=== PATIENT | male | born 1970 | race Caucasian/White ===

== ENCOUNTER 2018-10-22 23:21 | Inpatient (IN) | payer OTHER ==
[2018-10-22] MEDS ORDERED: LABETALOL 5 MG/ML VIAL MDV IVP STA (23:42)
[2018-10-23 00:03] LABS: Basophils # (A) 0.1 k/uL (0-0.2); Basophils % (A) 1 %; Eosinophils # (A) 0.2 k/uL (0-0.7); Eosinophils % (A) 2 %; HCT 53.9 % (39.0-53.0); HGB 17.4 gm/dL (13.0-17.5); Lymphocytes # (A) 1.4 k/uL (1.0-4.8); Lymphocytes % (A) 13 %; MCHC 32.2 g/dL (31.0-37.0); MCV 86.8 fL (80.0-100.0); Mean Platelet Volume 8.2; Monocytes # (A) 0.7 k/uL (0-1.0); Monocytes % (A) 7 %; Neutrophils # (A) 8.3 k/uL (1.3-7.7); Neutrophils % (A) 77 %; Platelet Count 272 k/uL (150-450); RBC 6.21 m/uL (4.30-5.90); RDW 15.6 % (11.5-15.5); WBC 10.9 k/uL (3.8-10.6)
[2018-10-23 00:09] LABS: INR 1.4 (<1.2); Prothrombin Time 12.9 sec (9.0-12.0)
[2018-10-23 00:12] LABS: Albumin 4.3 g/dL (3.5-5.0); Calcium 10.6 mg/dL (8.4-10.2); Potassium 5.1 mmol/L (3.5-5.1); Total Bilirubin 1.7 mg/dL (0.2-1.3); Total Protein 7.3 g/dL (6.3-8.2)
[2018-10-23] MEDS ORDERED: LORazepam 2 MG/ML INJ IV STA (00:24)
[2018-10-23 00:36] LABS: Creatine Kinase MB 4.3 ng/mL (0.0-2.4)
[2018-10-23 00:45] LABS: Troponin I 0.144 ng/mL (0.000-0.034)
--- NOTE | 2018-10-23 00:58 | XR ---
EXAMINATION TYPE: XR chest 2V DATE OF EXAM: 10/23/2018 COMPARISON: NONE HISTORY: Hypertension. Leg edema TECHNIQUE: Frontal and lateral views of the chest are obtained. FINDINGS: Heart is enlarged. There is right pleural effusion. There is no gross heart failure. There are no hilar masses. Mediastinum appears normal. There are chest leads. Bony thorax is intact. IMPRESSION: Cardiomegaly with right pleural effusion. There is no overt heart failure however.
[2018-10-23] MEDS ORDERED: NITROGLYCERIN OINT 1 INCH/GM PACKET TOPICAL STA (01:24)
[2018-10-23] MEDS ORDERED: FUROSEMIDE 10 MG/ML 4 ML VIAL IV STA (01:24)
--- NOTE | 2018-10-23 02:03 | CT ---
EXAMINATION TYPE: CT chest angio for PE DATE OF EXAM: 10/23/2018 COMPARISON: None HISTORY: chest pain and sob CT DLP: 676.5 mGycm Automated exposure control for dose reduction was used. CONTRAST: CT Chest for pulmonary embolism performed with with IV Contrast, patient injected with 80mL mL of Iso tammie 370. There are 3-D post processed images. FINDINGS: There is a moderate-sized right pleural effusion. There is some patchy atelectasis at the right lung base. Heart is top normal in size. There is no pericardial effusion. There is no evidence of a pulmon jayde mass. There are no hilar masses. There is no mediastinal adenopathy. There are a few superior med iastinal lymph nodes that measure less than 1 cm. There is normal contrast opacification of the pulmo nary arteries. I see no filling defects. There is no evidence of thoracic aortic aneurysm or dissecti on. The bony thorax appears intact. IMPRESSION: No evidence of pulmonary embolism. Right pleural effusion with right basilar pulmonary infiltrates and atelectasis.
--- NOTE | 2018-10-23 02:21 | ED ---
Abdominal Pain HPI - General Source: patient Mode of arrival: ambulatory Limitations: no limitations <Adelaide Juarez - Last Filed: 10/23/18 04:37> <Lelia Sesay - Last Filed: 10/25/18 05:44> - General Chief Complaint: Abdominal Pain Stated Complaint: High Blood pressure,Abd Swelling Time Seen by Provider: 10/22/18 23:40 - History of Present Illness Initial Comments: 48-year-old male patient presents to the emergency department today with complaints of abdominal and lower extremity swelling. Patient states for the last week he has had increased swelling to the lower legs and abdomen. Patient reports orthopnea and states he must sleep sitting up. States that symptoms started approximately 2 weeks ago after coming home from [place] on a plane. Patient states that he went to urgent care today was found to have elevated blood pressure so they sent him here for further evaluation. He denies any chest pain or shortness of breath at rest. Denies any abdominal pain or back pain. She denies any fevers or chills. States that as the swelling has been getting worse he has had increased difficulty ambulating. He denies any fever, chills, dizziness, or weakness. Patient denies any history of hypertension or other medical problems. Denies taking any medications for anything. Patient denies any recent rash, nausea, vomiting, diarrhea, constipation, numbness, tingling, hematuria, dysuria, urinary urgency, urinary frequency, headache, visual changes, or any other complaints. (Adelaide Juarez) - Related Data Home Medications Medication Instructions Recorded Confirmed No Known Home Medications 10/22/18 10/22/18 Allergies Allergy/AdvReac Type Severity Reaction Status Date / Time No Known Allergies Allergy Unverified 10/22/18 23:37 Review of Systems ROS Other: All systems not noted in ROS Statement are negative. <Adelaide Juarez - Last Filed: 10/23/18 04:37> ROS Other: All systems not noted in ROS Statement are negative. <Lelia Sesay - Last Filed: 10/25/18 05:44> ROS Statement: Those systems with pertinent positive or pertinent negative responses have been documented in the HPI. Past Medical History Past Medical History: No Reported History History of Any Multi-Drug Resistant Organisms: None Reported Past Surgical History: No Surgical Hx Reported Past Psychological History: No Psychological Hx Reported Smoking Status: Former smoker Past Alcohol Use History: None Reported Past Drug Use History: None Reported <AnnAdelaide Jasper - Last Filed: 10/23/18 04:37> General Exam Limitations: no limitations General appearance: alert, in no apparent distress, other (This is a well- developed, obese adult male patient in no acute distress. Vital signs upon presentation are temperature 98.2F, pulse 139, respirations 17, blood pressure 238/170, pulse ox 98% on room air.) Eye exam: Present: normal appearance, PERRL, EOMI. Absent: scleral icterus, conjunctival injection, periorbital swelling ENT exam: Present: normal exam, normal oropharynx, mucous membranes moist Respiratory exam: Present: normal lung sounds bilaterally. Absent: respiratory distress, wheezes, rales, rhonchi, stridor Cardiovascular Exam: Present: normal rhythm, tachycardia, normal heart sounds. Absent: systolic murmur, diastolic murmur, rubs, gallop, clicks GI/Abdominal exam: Present: soft, distended, normal bowel sounds. Absent: tenderness, guarding, rebound, rigid Extremities exam: Present: full ROM, normal capillary refill, other (Patient has nonpitting edema to the lower legs and feet. Skin is pink, warm, dry. Cap refills less than 3 seconds. Pedal pulses 2+ and equal bilaterally.). Absent: normal inspection, tenderness, pedal edema, joint swelling, calf tenderness Neurological exam: Present: alert, oriented X3, CN II-XII intact Psychiatric exam: Present: normal affect, normal mood Skin exam: Present: warm, dry, intact, normal color. Absent: rash <Adelaide Juarez M - Last Filed: 10/23/18 04:37> Vital Signs 10/22/18 10/22/18 10/22/18 23:24 23:36 23:40 Temperature 98.2 F Pulse Rate 139 H 140 H 140 H Respiratory 17 12 19 Rate Blood Pressure 238/170 230/183 O2 Sat by Pulse 98 97 100 Oximetry 10/22/18 10/23/18 10/23/18 23:50 00:00 00:10 Temperature Pulse Rate 140 H 140 H 138 H Respiratory 10 L 21 23 Rate Blood Pressure 230/183 230/183 213/166 O2 Sat by Pulse Oximetry 10/23/18 10/23/1818 00:20 00:30 00:40 Temperature Pulse Rate 135 H 135 H Respiratory 16 18 Rate Blood Pressure 213/166 213/166 191/157 O2 Sat by Pulse Oximetry 10/23/18 10/23/18 10/23/18 01:00 01:30 02:00 Temperature Pulse Rate 134 H 133 H Respiratory 19 16 Rate Blood Pressure 191/157 179/146 192/147 O2 Sat by Pulse 97 Oximetry 10/23/18 10/23/18 10/23/18 02:30 03:00 03:30 Temperature Pulse Rate 135 H 133 H 133 H Respiratory 18 9 L 18 Rate Blood Pressure 195/148 192/157 190/150 O2 Sat by Pulse 96 99 96 Oximetry 10/23/18 10/23/18 10/23/18 04:00 04:30 05:00 Temperature Pulse Rate 135 H 135 H 135 H Respiratory 20 16 17 Rate Blood Pressure 177/152 179/149 180/135 O2 Sat by Pulse 97 94 L 93 L Oximetry 10/23/18 10/23/18 10/23/18 06:30 07:00 07:30 Temperature 98.5 F Pulse Rate 98 118 H 107 H Respiratory 18 17 20 Rate Blood Pressure 172/114 157/112 140/118 O2 Sat by Pulse 95 96 96 Oximetry 10/23/18 10/23/18 10/23/18 09:11 10:35 11:30 Temperature 98.2 F Pulse Rate 137 H 131 H 121 H Respiratory 18 18 18 Rate Blood Pressure 173/138 179/138 190/157 O2 Sat by Pulse 100 98 98 Oximetry 10/23/18 13:29 Temperature Pulse Rate 133 H Respiratory 18 Rate Blood Pressure 185/139 O2 Sat by Pulse 96 Oximetry Medical Decision Making - Lab Data Result diagrams: 10/22/18 23:45 10/22/18 23:45 - EKG Data -: EKG Interpreted by Co - Radiology Data Radiology results: report reviewed, image reviewed <Adelaide Juarez - Last Filed: 10/23/18 04:37> - Lab Data Result diagrams: 10/24/18 06:54 10/24/18 18:31 <Lelia Sesay - Last Filed: 10/25/18 05:44> - Medical Decision Making 48-year-old male patient presents to the emergency department today for evaluation of increased abdominal swelling and lower extremity swelling. Physical examination did reveal nonpitting edema to the bilateral lower extremities. Lungs are clear to auscultation with good air movement. Upon arrival patient was quite hypertensive with blood pressure at 230/184. Labs reviewed and did reveal white blood cell count at 10.9, INR 1.4, BUN 26, glucose 161, troponin 0.144, BNP 3320, normal TSH. Negative drug screen. X- ray showed right-sided pleural effusion and cardiomegaly with no overt heart failure. CTA chest was obtained to rule out PE, there was no evidence of PE, but right sided moderate sized pleural effusion and some patchy atelectasis and infiltrates. EKG was obtained and did show sinus tachycardia from 130 to 140. Patient was given multiple doses of blood pressure medication including labetalol and Lopressor, blood pressure and heart rate remained elevated. Patient was given 40 mg Lasix IV and Nitropaste was applied. My attending Dr. Sesay did discuss the case with the vascular tech sewer contractor Dr. Morgan who recommends giving an additional dose of Lopressor and starting oral medication. Patient was started on anticoagulant therapy with heparin. Echocardiogram will be ordered for the morning. Patient will be admitted and monitored closely. (Adelaide Juarez) I personally saw and examined the patient. I reviewed and agree with the mid- level provider findings including all diagnostic interpretations and treatment plans as written unless otherwise stated. I was present for perea portions of any procedures performed. I did place the admission orders. (Lelia Sesay) - Lab Data Lab Results 10/22/18 10/22/18 10/22/18 Range/Units 23:45 23:45 23:45 WBC 10.9 H (3.8-10.6) k/uL RBC 6.21 H (4.30-5.90) m/uL Hgb 17.4 (13.0-17.5) gm/dL Hct 53.9 H (39.0-53.0) % MCV 86.8 (80.0-100.0) fL MCH 28.0 (25.0-35.0) pg MCHC 32.2 (31.0-37.0) g/dL RDW 15.6 H (11.5-15.5) % Plt Count 272 (150-450) k/uL Neutrophils % 77 % Lymphocytes % 13 % Monocytes % 7 % Eosinophils % 2 % Basophils % 1 % Neutrophils # 8.3 H (1.3-7.7) k/uL Lymphocytes # 1.4 (1.0-4.8) k/uL Monocytes # 0.7 (0-1.0) k/uL Eosinophils # 0.2 (0-0.7) k/uL Basophils # 0.1 (0-0.2) k/uL PT (9.0-12.0) sec INR (<1.2) APTT (22.0-30.0) sec Sodium 137 (137-145) mmol/L Potassium 5.1 (3.5-5.1) mmol/L Chloride 103 (98-107) mmol/L Carbon Dioxide 19 L (22-30) mmol/L Anion Gap 15 mmol/L BUN 26 H (9-20) mg/dL Creatinine 1.23 (0.66-1.25) mg/dL Est GFR (CKD-EPI)AfAm 80 (>60 ml/min/1.73 sqM) Est GFR (CKD-EPI)NonAf 69 (>60 ml/min/1.73 sqM) Glucose 161 H (74-99) mg/dL Calcium 10.6 H (8.4-10.2) mg/dL Magnesium 2.0 (1.6-2.3) mg/dL Total Bilirubin 1.7 H (0.2-1.3) mg/dL AST 42 (17-59) U/L ALT 61 (21-72) U/L Alkaline Phosphatase 141 H (38-126) U/L Total Creatine Kinase 77 (55-170) U/L CK-MB (CK-2) 4.3 H (0.0-2.4) ng/mL CK-MB (CK-2) Rel Index 5.6 Troponin I 0.144 H* (0.000-0.034) ng/mL NT-Pro-B Natriuret Pep pg/mL Total Protein 7.3 (6.3-8.2) g/dL Albumin 4.3 (3.5-5.0) g/dL Amylase 40 (30-110) U/L Lipase 165 (23-300) U/L TSH 3.310 (0.465-4.680) mIU/L 10/22/18 10/22/18 Range/Units 23:45 23:45 WBC (3.8-10.6) k/uL RBC (4.30-5.90) m/uL Hgb (13.0-17.5) gm/dL Hct (39.0-53.0) % MCV (80.0-100.0) fL MCH (25.0-35.0) pg MCHC (31.0-37.0) g/dL RDW (11.5-15.5) % Plt Count (150-450) k/uL Neutrophils % % Lymphocytes % % Monocytes % % Eosinophils % % Basophils % % Neutrophils # (1.3-7.7) k/uL Lymphocytes # (1.0-4.8) k/uL Monocytes # (0-1.0) k/uL Eosinophils # (0-0.7) k/uL Basophils # (0-0.2) k/uL PT 12.9 H (9.0-12.0) sec INR 1.4 H (<1.2) APTT 24.0 (22.0-30.0) sec Sodium (137-145) mmol/L Potassium (3.5-5.1) mmol/L Chloride (98-107) mmol/L Carbon Dioxide (22-30) mmol/L Anion Gap mmol/L BUN (9-20) mg/dL Creatinine (0.66-1.25) mg/dL Est GFR (CKD-EPI)AfAm (>60 ml/min/1.73 sqM) Est GFR (CKD-EPI)NonAf (>60 ml/min/1.73 sqM) Glucose (74-99) mg/dL Calcium (8.4-10.2) mg/dL Magnesium (1.6-2.3) mg/dL Total Bilirubin (0.2-1.3) mg/dL AST (17-59) U/L ALT (21-72) U/L Alkaline Phosphatase (38-126) U/L Total Creatine Kinase (55-170) U/L CK-MB (CK-2) (0.0-2.4) ng/mL CK-MB (CK-2) Rel Index Troponin I (0.000-0.034) ng/mL NT-Pro-B Natriuret Pep 3320 pg/mL Total Protein (6.3-8.2) g/dL Albumin (3.5-5.0) g/dL Amylase (30-110) U/L Lipase (23-300) U/L TSH (0.465-4.680) mIU/L - EKG Data EKG Comments: EKG obtained at 2346 shows sinus tachycardia with right axis deviation and incomplete right bundle branch block, ventricular rate 140, AR interval 126, QRS duration 100, QT 274, QTC 418. No evidence of ST elevation or depression. EKG #2 obtained at 0308 shows sinus tachycardia with a left posterior fascicular block, ventricular rate is 134, AR interval 112, QRS duration 106, QT 344, QTC 513. No evidence of ST elevation or depression. (Adelaide Juarez ) - Radiology Data Two-view x-ray of the chest is obtained. Heart is enlarged. There is right pleural effusion. There is no gross heart failure. There are no hilar masses. Mediastinum appears normal. There are chest leads. Bony thorax is intact. Impression by Dr. Srinivasan shows cardiomegaly with right pleural effusion. There is no overt heart failure however. CT chest angiography for PE was obtained. There is moderate right pleural effusion. Some patchy atelectasis at the right lung base. Heart is top normal in size. There is no pericardial effusion. There is no evidence of pulmonary mass. There are no hilar masses. There is no mediastinal adenopathy. There are few superior mediastinal lymph nodes that measure less than 1 cm. There is normal contrast opacification of the pulmonary arteries. I see no filling defects. There is no evidence of thoracic aortic aneurysm or dissection. The bony thorax appears intact. Impression by Dr. Srinivasan shows right pleural effusion with right basilar pulmonary infiltrates atelectasis. No evidence of pulmonary embolism. (Adelaide Juarez) Disposition Decision to Admit Reason: Admit from EC Decision Date: 10/23/18 Decision Time: 04:44 <Adeliade Juarez - Last Filed: 10/23/18 04:37> <Lelia Sesay - Last Filed: 10/25/18 05:44> Clinical Impression: Tachycardia, Pleural effusion on right, Congestive heart failure, Hypertensive emergency Disposition: ADMITTED IP TO THIS HOSP Condition: Serious
[2018-10-23] MEDS ORDERED: METOPROLOL TARTRATE 5 MG/5 ML VIAL IVP STA ×2 (02:34→04:34)
[2018-10-23] MEDS ORDERED: HEPARIN SODIUM,PORCINE 5,000 UNIT/ML 1 ML VIAL IV ONE (03:16)
[2018-10-23] MEDS ORDERED: HEPARIN SODIUM,PORCINE 5,000 UNIT/ML 1 ML VIAL IV PRN (03:16)
[2018-10-23] MEDS: HEPARIN SOD,PORK IN 0.45% NACL 25,000 UNIT in 0.45% NACL 1 500ML.BAG IV SCH ×2 (03:45→21:10)
[2018-10-23 04:00] LABS: Amphetamine Screen,Urine Not Detected (NotDetected); Barbiturate Screen,Urine Not Detected (NotDetected); Benzodiazepines Screen,Urine Not Detected (NotDetected); Cocaine Screen,Urine Not Detected (NotDetected); Methadone Screen, Urine Not Detected (NotDetected); Opiate Screen,Urine Not Detected (NotDetected); Oxycodone Screen, Urine Not Detected (NotDetected); Phencyclidine Screen,Urine Not Detected (NotDetected); Tricyclic Antidepressant,Urine Not Detected (NotDetected); Urn Cannabinoid Scrn Not Detected (NotDetected)
[2018-10-23] MEDS ORDERED: NALOXONE 0.4 MG/ML 1 ML VIAL IV PRN (04:07)
[2018-10-23] MEDS: SODIUM CHLORIDE 0.9% 1,000 ML IV SCH (05:35)
[2018-10-23] MEDS: METOPROLOL TARTRATE 25 MG TAB PO SCH ×2 (09:13→19:53)
[2018-10-23] MEDS: ASPIRIN 325 MG TAB PO SCH (09:13)
[2018-10-23] MEDS: FUROSEMIDE 10 MG/ML 4 ML VIAL IV SCH (09:15)
[2018-10-23] MEDS ORDERED: DEXTROSE 5% IN WATER 100 ML with AMIODARONE 150 MG IV ONE (11:24)
--- NOTE | 2018-10-23 11:33 | P.CRDCN ---
History of Present Illness Consult date: 10/23/18 Chief complaint: Increasing abdominal girth, shortness of breath History of present illness: This is a 48-year-old gentleman who has been experiencing increasing abdominal girth and distention and also some peripheral edema. He claims that all started about 2 weeks ago when he went to [place]. He was also having some palpitations. Denied any chest pain. He went to the walk-in clinic with several complaints. His blood pressure was found to be very high. Patient was referred to the emergency room. In the emergency room patient was found to have significant elevation of the blood pressure. He was treated with IV labetalol and also metoprolol. Cardiology consult is initiated. His monitor showed evidence of atrial fibrillation flutter with rapid ventricular response. His chest x-ray showed evidence of cardiomegaly and congestive heart failure. His proBNP is elevated. Clinically patient has JVD and probably ascites and peripheral edema. It appears that patient has evidence of systolic congestive heart failure which is acute. His EKG showed evidence of possible anteroseptal VA. Bedside echo Cardigan showed apical hypokinesia with severely impaired LV function with ejection fraction about 25-30%. It appears that most probably patient has ischemic cardiomyopathy, atrial fibrillation and CHF. I'm going to start him on IV amiodarone and continue with IV diuretics along with lisinopril and beta blockers. His potassium is on the high side. We'll may add Aldactone later on. Patient will require cardiac catheterization for definitive diagnosis Review of Systems As per the chart Past Medical History Past Medical History: No Reported History History of Any Multi-Drug Resistant Organisms: None Reported Past Surgical History: No Surgical Hx Reported Additional Past Anesthesia/Blood Transfusion Reaction / Comment(s): Pt has never had anesthesia/surgery Smoking Status: Former smoker - Past Family History Father Family Medical History: Coronary Artery Disease (CAD), Diabetes Mellitus Additional Family Medical History / Comment(s): Father has had MIs and his first Mi was at the age of 48yrs. Mother Family Medical History: Diabetes Mellitus Medications and Allergies Home Medications Medication Instructions Recorded Confirmed Type No Known Home Medications 10/22/18 10/22/18 History Allergies Allergy/AdvReac Type Severity Reaction Status Date / Time No Known Allergies Allergy Unverified 10/22/18 23:37 Physical Exam Vitals: Vital Signs Temp Pulse Resp BP Pulse Ox 10/23/18 10:35 131 H 18 179/138 98 10/23/18 09:11 137 H 18 173/138 100 10/23/18 07:30 98.5 F 107 H 20 140/118 96 10/23/18 07:00 118 H 17 157/112 96 10/23/18 06:30 98 18 172/114 95 10/23/18 05:00 135 H 17 180/135 93 L 10/23/18 04:30 135 H 16 179/149 94 L 10/23/18 04:00 135 H 20 177/152 97 10/23/18 03:30 133 H 18 190/150 96 10/23/18 03:00 133 H 9 L 192/157 99 10/23/18 02:30 135 H 18 195/148 96 10/23/18 02:00 133 H 16 192/147 97 10/23/18 01:30 179/146 10/23/18 01:00 134 H 19 191/157 10/23/18 00:40 135 H 18 191/157 10/23/18 00:30 135 H 16 213/166 10/23/18 00:20 213/166 10/23/18 00:10 138 H 23 213/166 10/23/18 00:00 140 H 21 230/183 10/22/18 23:50 140 H 10 L 230/183 10/22/18 23:40 140 H 19 230/183 100 10/22/18 23:36 140 H 12 97 10/22/18 23:24 98.2 F 139 H 17 238/170 98 Intake and Output 10/22/18 10/23/18 10/23/18 22:59 06:59 14:59 Output Total 650 500 Balance -650 -500 Output: Urine 650 500 Other: Weight 123.377 kg GENERAL EXAM: Patient is alert and oriented and doesn't appear to be in any acute distress HEENT: Normocephalic. Normal reaction of pupils, equal size, normal range of extraocular motion. No erythema or exudates in the throat. NECK: No masses, no nuchal rigidity. Increased JVD CHEST: No chest wall deformity. LUNGS: Diminished breath sounds at bases HEART: Irregular heart rhythm ABDOMEN: Distended, probable ascites. SKIN: No rashes CENTRAL NERVOUS SYSTEM: No focal deficits. EXTREMITIES: No cyanosis, clubbing or edema. Results 10/22/18 23:45 10/22/18 23:45 Cardiac Enzymes 10/22/18 10/22/18 10/23/18 Range/Units 23:45 23:45 06:44 AST 42 (17-59) U/L CK-MB (CK-2) 4.3 H (0.0-2.4) ng/mL Troponin I 0.144 H* 0.145 H* (0.000-0.034) ng/mL Coagulation 10/22/18 10/23/18 Range/Units 23:45 09:42 PT 12.9 H (9.0-12.0) sec APTT 24.0 30.8 H (22.0-30.0) sec CBC 10/22/18 Range/Units 23:45 WBC 10.9 H (3.8-10.6) k/uL RBC 6.21 H (4.30-5.90) m/uL Hgb 17.4 (13.0-17.5) gm/dL Hct 53.9 H (39.0-53.0) % Plt Count 272 (150-450) k/uL Comprehensive Metabolic Panel 10/22/18 Range/Units 23:45 Sodium 137 (137-145) mmol/L Potassium 5.1 (3.5-5.1) mmol/L Chloride 103 (98-107) mmol/L Carbon Dioxide 19 L (22-30) mmol/L BUN 26 H (9-20) mg/dL Creatinine 1.23 (0.66-1.25) mg/dL Glucose 161 H (74-99) mg/dL Calcium 10.6 H (8.4-10.2) mg/dL AST 42 (17-59) U/L ALT 61 (21-72) U/L Alkaline Phosphatase 141 H (38-126) U/L Total Protein 7.3 (6.3-8.2) g/dL Albumin 4.3 (3.5-5.0) g/dL Current Medications Generic Name Dose Route Start Last Admin Trade Name Freq PRN Reason Stop Dose Admin Aspirin 325 mg 10/23/18 09:00 10/23/18 09:13 Aspirin PO 325 mg DAILY HAIDER Administration Furosemide 40 mg 10/23/18 09:00 10/23/18 09:15 Lasix IV 40 mg DAILY HAIDER Administration Heparin Sodium (Porcine) 0 unit 10/23/18 03:16 Heparin IV PER PROTOCOL PRN Low PTT Protocol Heparin Sodium/Sodium Chloride 500 mls @ 20 mls/hr 10/23/18 03:30 10/23/18 03 :45 25,000 unit/ Sodium Chloride IV 8.1 units/hr .Q24H HAIDER 0.16 mls/hr Administration Protocol Sodium Chloride 1,000 mls @ 20 mls/hr 10/23/18 04:15 10/23/18 05:35 Saline 0.9% IV 20 mls/hr .Q24H HAIDER Administration Amiodarone HCl 150 mg/ 103 mls @ 618 mls/hr 10/23/18 11:24 Dextrose/Water IV 10/23/18 11:33 .Q10M ONE Amiodarone HCl 450 mg/ 250 mls @ 33.33 mls/hr 10/23/18 11:30 Dextrose/Water IV 10/24/18 11:24 .Q7H31M HAIDER Protocol 1 MG/MIN Lisinopril 10 mg 10/23/18 21:00 Zestril PO BID HAIDER Metoprolol Tartrate 25 mg 10/23/18 09:00 10/23/18 09:13 Lopressor PO 25 mg BID HAIDER Administration Naloxone HCl 0.2 mg 10/23/18 04:07 Narcan IV Q2M PRN Opioid Reversal Intake and Output 10/22/18 10/23/18 10/23/18 22:59 06:59 14:59 Output Total 650 500 Balance -650 -500 Output: Urine 650 500 Other: Weight 123.377 kg 10/22/18 23:45 10/22/18 23:45 EKG Interpretations (text) Atrial fibrillation/flutter with rapid ventricular response Assessment and Plan (1) Atrial flutter Current Visit: Yes Status: Acute Code(s): I48.92 - UNSPECIFIED ATRIAL FLUTTER SNOMED Code(s): 6128242 (2) Congestive heart failure Current Visit: Yes Status: Acute Code(s): I50.9 - HEART FAILURE, UNSPECIFIED SNOMED Code(s): 01232687 (3) Hypertensive emergency Current Visit: Yes Status: Acute Code(s): I16.1 - HYPERTENSIVE EMERGENCY SNOMED Code(s): 309225548859198 (4) Ischemic cardiomyopathy Current Visit: Yes Status: Acute Code(s): I25.5 - ISCHEMIC CARDIOMYOPATHY SNOMED Code(s): 023146155 Plan: Continue with IV diuretics with IV Lasix. Add Aldactone and potassium is corrected. Continue with IV amiodarone and anticoagulation. Continue with beta blockers. Further recommendation will depend upon clinical course. Patient will need cardiac catheterization for definitive diagnosis
[2018-10-23] MEDS: LISINOPRIL 10 MG TAB PO SCH ×2 (12:21→19:53)
--- NOTE | 2018-10-23 12:23 | ECHOF ---
Referral Reason:Cardiomegaly; CHF MEASUREMENTS -------- HEIGHT: 162.6 cm WEIGHT: 123.4 kg BP: 180/135 IVSd: 2.3 cm (0.6 - 1.1) LVIDd: 4.5 cm (3.9 - 5.3) LVPWd: 2.5 cm (0.6 - 1.1) IVSs: 2.3 cm LVIDs: 3.8 cm LVPWs: 2.3 cm LA Diam: 4.6 cm (2.7 - 3.8) LAESV Index (A-L): 41.29 ml/m Ao Diam: 3.3 cm (2.0 - 3.7) AV Cusp: 1.9 cm (1.5 - 2.6) LA Diam: 4.5 cm (2.7 - 3.8) MV EXCURSION: 18.351 mm (> 18.000) MV EF SLOPE: 195 mm/s (70 - 150) EPSS: 1.2 cm MV E Yuri: 1.12 m/s MV DecT: 157 ms MV A Yuri: 0.91 m/s MV E/A Ratio: 1.23 AV maxP.12 mmHg AV meanP.90 mmHg AR PHT: 284 ms RAP: 10.00 mmHg RVSP: 64.61 mmHg FINDINGS -------- Resting tachycardia (HR>100bpm). This was a technically good study. The left ventricular size is normal. There is severe concentric left ventricular hypertrophy. The re is severe global hypokinesis of LV . Overall left ventricular systolic function is severely impa ired with, an EF between 20 - 25 %. The right ventricle is normal in size. LA is severely dilated >40 ml/m2 The right atrial size is normal. There is moderate aortic valve sclerosis. There is mild aortic regurgitation. Peak/mean gradient across the Aortic Valve is 4.12mmHg / 2.90mmHg. AOV is possible Bicuspid. Mild mitral annular calcification present. Mild mitral regurgitation is present. Mild tricuspid regurgitation present. There is moderate pulmonary hypertension. The right ventric ular systolic pressure, as measured by Doppler, is 64.61mmHg. Trace/mild (physiologic) pulmonic regurgitation. The aortic root size is normal. There is a small, generalized pericardial effusion present. CONCLUSIONS -------- 1. Resting tachycardia (HR>100bpm). 2. This was a technically good study. 3. There is severe concentric left ventricular hypertrophy. 4. There is severe global hypokinesis of LV . 5. Overall left ventricular systolic function is severely impaired with, an EF between 20 - 25 %. 6. The right ventricle is normal in size. 7. LA is severely dilated >40 ml/m2 8. The right atrial size is normal. 9. There is moderate aortic valve sclerosis. 10. There is mild aortic regurgitation. 11. Peak/mean gradient across the Aortic Valve is 4.12mmHg / 2.90mmHg. 12. AOV is possible Bicuspid. 13. Mild mitral annular calcification present. 14. Mild mitral regurgitation is present. 15. Mild tricuspid regurgitation present. 16. There is moderate pulmonary hypertension. 17. Trace/mild (physiologic) pulmonic regurgitation. 18. The aortic root size is normal. 19. There is a small, generalized pericardial effusion present. LACTATION NURSE: Julia Godinez RDCS
[2018-10-23] MEDS: AMIODARONE 450 MG in DEXTROSE 5% IN WATER 250 ML IV SCH ×4 (12:35→19:53)
--- NOTE | 2018-10-23 13:55 | P.HPIM ---
History of Present Illness This is a pleasant 48 years old male with no significant past medical history who presents because of increase abdominal and leg swelling. He states he was in [place] for a few days on the last 2 days he noticed that his abdominal girth was getting bigger, which continued after he came to [place]. In the last 3 days he was noted to have progressive bilateral leg swelling. However he denies chest pain. He denies dyspnea. And he denies abdominal pain he says that the abdominal swelling causing him more pressure like feeling. No nausea vomiting and no change in urine or bowel habits. On admission he has mild leukocytosis. However his creatinine was 1.2. And he has positive troponin at 0.14 and 0.14. Patient has been evaluated by precision lens centerer and edger. Echo came back showing ejection fraction 20-25% and there is severe global hypokinesia with severe concentric left ventricular hypertrophy. Also patient has CT PA in the emergency room which was negative for PE On presentation also has high blood pressures and heart rate, EKG was showing atrial fibrillation. Patient was started on amiodarone drip for A. fib with RVR. Review of Systems CONSTITUTIONAL: No fever, no malaise, no fatigue. HEENT: No recent visual problems or hearing problems. Denied any sore throat. CARDIOVASCULAR: No orthopnea, PND, no palpitations, no syncope. PULMONARY: No shortness of breath, no cough, no hemoptysis. GASTROINTESTINAL: No diarrhea, no nausea, no vomiting, no abdominal pain. Normoactive bowel sounds. NEUROLOGICAL: No headaches, no weakness, no numbness. HEMATOLOGICAL: Denies any bleeding or petechiae. GENITOURINARY: Denies any burning micturition, frequency, or urgency. MUSCULOSKELETAL/RHEUMATOLOGICAL: Denies any joint pain, swelling, or any muscle pain. ENDOCRINE: Denies any polyuria or polydipsia. Past Medical History Past Medical History: No Reported History History of Any Multi-Drug Resistant Organisms: None Reported Past Surgical History: No Surgical Hx Reported Additional Past Anesthesia/Blood Transfusion Reaction / Comment(s): Pt has never had anesthesia/surgery Smoking Status: Former smoker - Past Family History Father Family Medical History: Coronary Artery Disease (CAD), Diabetes Mellitus Additional Family Medical History / Comment(s): Father has had MIs and his first Mi was at the age of 48yrs. Mother Family Medical History: Diabetes Mellitus Medications and Allergies Home Medications Medication Instructions Recorded Confirmed Type No Known Home Medications 10/22/18 10/22/18 History Allergies Allergy/AdvReac Type Severity Reaction Status Date / Time No Known Allergies Allergy Unverified 10/22/18 23:37 Physical Exam Vitals: Vital Signs Temp Pulse Resp BP Pulse Ox 10/23/18 13:29 133 H 18 185/139 96 10/23/18 11:30 98.2 F 121 H 18 190/157 98 10/23/18 10:35 131 H 18 179/138 98 10/23/18 09:11 137 H 18 173/138 100 10/23/18 07:30 98.5 F 107 H 20 140/118 96 10/23/18 07:00 118 H 17 157/112 96 10/23/18 06:30 98 18 172/114 95 10/23/18 05:00 135 H 17 180/135 93 L 10/23/18 04:30 135 H 16 179/149 94 L 10/23/18 04:00 135 H 20 177/152 97 10/23/18 03:30 133 H 18 190/150 96 10/23/18 03:00 133 H 9 L 192/157 99 10/23/18 02:30 135 H 18 195/148 96 10/23/18 02:00 133 H 16 192/147 97 10/23/18 01:30 179/146 10/23/18 01:00 134 H 19 191/157 10/23/18 00:40 135 H 18 191/157 10/23/18 00:30 135 H 16 213/166 10/23/18 00:20 213/166 10/23/18 00:10 138 H 23 213/166 10/23/18 00:00 140 H 21 230/183 10/22/18 23:50 140 H 10 L 230/183 10/22/18 23:40 140 H 19 230/183 100 10/22/18 23:36 140 H 12 97 10/22/18 23:24 98.2 F 139 H 17 238/170 98 Intake and Output 10/22/18 10/23/18 10/23/18 22:59 06:59 14:59 Intake Total 1.36 Output Total 650 500 Balance -650 -498.64 Intake: Intake, IV Titration 1.36 Amount Heparin Sod,Pork in 0.45% 1.36 NaCl 25,000 unit In 0.45 % NaCl 1 500ml.bag @ 20 mls/hr IV .Q24H [facility] Rx#: [id number] Output: Urine 650 500 Other: Weight 123.377 kg GENERAL: The patient is alert and oriented x3, not in any acute distress. Well developed, well nourished. HEENT: Pupils are round and equally reacting to light. EOMI. No scleral icterus. No conjunctival pallor. Normocephalic, atraumatic. No pharyngeal erythema. No thyromegaly. CARDIOVASCULAR: S1 and S2 present. No murmurs, rubs, or gallops. PULMONARY: Chest is clear to auscultation, no wheezing or crackles. ABDOMEN: Soft, nontender, nondistended, normoactive bowel sounds. No palpable organomegaly. MUSCULOSKELETAL: No joint swelling or deformity. EXTREMITIES: No cyanosis, clubbing, or pedal edema. NEUROLOGICAL: Gross neurological examination did not reveal any focal deficits. SKIN: No rashes. Results CBC & Chem 7: 10/22/18 23:45 10/22/18 23:45 Labs: Abnormal Lab Results - Last 24 Hours (Table) 10/22/18 10/22/18 10/22/18 Range/Units 23:45 23:45 23:45 WBC 10.9 H (3.8-10.6) k/uL RBC 6.21 H (4.30-5.90) m/uL Hct 53.9 H (39.0-53.0) % RDW 15.6 H (11.5-15.5) % Neutrophils # 8.3 H (1.3-7.7) k/uL PT (9.0-12.0) sec INR (<1.2) APTT (22.0-30.0) sec Carbon Dioxide 19 L (22-30) mmol/L BUN 26 H (9-20) mg/dL Glucose 161 H (74-99) mg/dL Calcium 10.6 H (8.4-10.2) mg/dL Total Bilirubin 1.7 H (0.2-1.3) mg/dL Alkaline Phosphatase 141 H (38-126) U/L CK-MB (CK-2) 4.3 H (0.0-2.4) ng/mL Troponin I 0.144 H* (0.000-0.034) ng/mL 10/22/18 10/23/18 10/23/18 Range/Units 23:45 06:44 09:42 WBC (3.8-10.6) k/uL RBC (4.30-5.90) m/uL Hct (39.0-53.0) % RDW (11.5-15.5) % Neutrophils # (1.3-7.7) k/uL PT 12.9 H (9.0-12.0) sec INR 1.4 H (<1.2) APTT 30.8 H (22.0-30.0) sec Carbon Dioxide (22-30) mmol/L BUN (9-20) mg/dL Glucose (74-99) mg/dL Calcium (8.4-10.2) mg/dL Total Bilirubin (0.2-1.3) mg/dL Alkaline Phosphatase (38-126) U/L CK-MB (CK-2) (0.0-2.4) ng/mL Troponin I 0.145 H* (0.000-0.034) ng/mL Thrombosis Risk Factor Assmnt - Choose All That Apply Any of the Below Risk Factors Present?: Yes Each Factor Represents 1 point: Age 41-60 years, Obesity (BMI >25), Swollen legs (current) Other Risk Factors: No Other congenital or acquired thrombophilia - If yes, enter type in comment: No Thrombosis Risk Factor Assessment Total Risk Factor Score: 3 Thrombosis Risk Factor Assessment Level: Moderate Risk Assessment and Plan Assessment: Acute systolic CHF Ischemic cardiomyopathy Acute coronary syndrome, non-STEMI Atrial fibrillation's with RVR, started on amiodarone drip. Plan: This is a pleasant 48 this male who presents because of excessive leg swelling mostly due to acute systolic heart regular. Some ischemic elements. Cardiology consultation is appreciated. Labs and medication were reviewed.. Continue same treatment. Continue with symptomatic treatment. Resume home medication. Monitor lytes and vitals. DVT and GI prophylaxis. Further recommendations of the clinical course of the patient DVT prophylaxis: Subcutaneous heparin GI Prophylaxis: Pepcid PT/OT: Pending Prognosis is guarded
[2018-10-23] MEDS: HYDROCHLOROTHIAZIDE 25 MG TAB PO SCH (19:54)
[2018-10-23] MEDS ORDERED: LABETALOL 5 MG/ML VIAL MDV IVP STA (23:00)
[2018-10-24] MEDS: hydrALAZINE HCL 25 MG TAB PO PRN ×2 (04:16→19:08)
[2018-10-24] MEDS: SODIUM CHLORIDE 0.9% 1,000 ML IV SCH (04:23)
[2018-10-24] MEDS ORDERED: cloNIDine HCL 0.1 MG TAB PO STA (05:54)
[2018-10-24 07:37] LABS: Albumin 3.2 g/dL (3.5-5.0); Bilirubin, Delta 0.5 mg/dL (0.0-0.2); Bilirubin,Unconjugated 0.2 mg/dL (0.0-1.1); Calcium 9.3 mg/dL (8.4-10.2); Potassium 3.6 mmol/L (3.5-5.1); Total Bilirubin 0.7 mg/dL (0.2-1.3); Total Protein 5.7 g/dL (6.3-8.2)
[2018-10-24 07:51] LABS: Basophils # (A) 0.1 k/uL (0-0.2); Basophils % (A) 1 %; Eosinophils # (A) 0.3 k/uL (0-0.7); Eosinophils % (A) 4 %; HGB 14.5 gm/dL (13.0-17.5); Lymphocytes # (A) 1.2 k/uL (1.0-4.8); Lymphocytes % (A) 16 %; MCH 27.4 pg (25.0-35.0); MCHC 30.9 g/dL (31.0-37.0); MCV 88.5 fL (80.0-100.0); Mean Platelet Volume 7.8; Monocytes # (A) 0.6 k/uL (0-1.0); Monocytes % (A) 9 %; Neutrophils # (A) 4.8 k/uL (1.3-7.7); Neutrophils % (A) 69 %; Platelet Count 222 k/uL (150-450); RBC 5.31 m/uL (4.30-5.90)
[2018-10-24] MEDS: HYDROCHLOROTHIAZIDE 25 MG TAB PO SCH (09:42)
[2018-10-24] MEDS: FUROSEMIDE 10 MG/ML 4 ML VIAL IV SCH ×3 (09:42→22:53)
[2018-10-24] MEDS: METOPROLOL TARTRATE 25 MG TAB PO SCH (09:42)
[2018-10-24] MEDS: ASPIRIN 325 MG TAB PO SCH (09:42)
[2018-10-24] MEDS: LISINOPRIL 10 MG TAB PO SCH (09:42)
[2018-10-24] MEDS: CARVEDILOL 6.25 MG TAB PO SCH ×2 (11:37→17:35)
[2018-10-24] MEDS: SPIRONOLACTONE 25 MG TAB PO SCH (11:39)
[2018-10-24] MEDS: AMIODARONE 450 MG in DEXTROSE 5% IN WATER 250 ML IV SCH ×4 (11:48→12:03)
--- NOTE | 2018-10-24 12:46 | P.PN ---
Subjective Progress Note Date: 10/24/18 This is a 48-year-old gentleman who has been experiencing increasing abdominal girth and distention and also some peripheral edema. He claims that all started about 2 weeks ago when he went to [place]. He was also having some palpitations. Denied any chest pain. He went to the walk-in clinic with several complaints. His blood pressure was found to be very high. Patient was referred to the emergency room. In the emergency room patient was found to have significant elevation of the blood pressure. He was treated with IV labetalol and also metoprolol. Cardiology consult is initiated. His monitor showed evidence of atrial fibrillation flutter with rapid ventricular response. His chest x-ray showed evidence of cardiomegaly and congestive heart failure. His proBNP is elevated. Clinically patient has JVD and probably ascites and peripheral edema. It appears that patient has evidence of systolic congestive heart failure which is acute. His EKG showed evidence of possible anteroseptal CO. Bedside echo [place] showed apical hypokinesia with severely impaired LV function with ejection fraction about 25-30%. It appears that most probably patient has ischemic cardiomyopathy, atrial fibrillation and CHF. Patient was initiated on IV amiodarone, and continued on IV diuretics. His blood pressure this morning 166/118 with a heart rate in the 70s, 99% on room air. White blood cell count 7, hemoglobin 14.5, platelet count 222. Sodium 138, potassium 3.6, BUN 35, creatinine 1.5. Patient has been diuresing, weight is essentially unchanged from yesterday. We will increase his dose of IV Lasix. We will also discontinue the SHAE inhibitor and start the patient on Entresto from Sunday. Objective - Vital Signs Vital signs: Vital Signs Temp 97.5 F L 10/24/18 11:45 Pulse 73 10/24/18 11:45 Resp 16 10/24/18 11:45 BP 166/118 10/24/18 11:45 Pulse Ox 99 10/24/18 11:45 Intake & Output 10/23/18 10/24/18 10/24/18 18:59 06:59 18:59 Intake Total 438.819 25.331 Output Total 091 354 2580 Balance -61.181 -524.669 -2300 Weight 124 kg Intake: Intake, IV Titration 198.819 25.331 Amount Amiodarone 450 mg In 196.091 23.602 Dextrose 5% in Water 250 ml @ 1 MG/MIN 33.33 mls/ hr IV .Q7H31M [facility] Rx#: [id number] Heparin Sod,Pork in 0.45% 2.728 1.729 NaCl 25,000 unit In 0.45 % NaCl 1 500ml.bag @ 20 mls/hr IV .Q24H [facility] Rx#: [id number] Oral 240 Output: Urine 797 295 4233 Other: Voiding Method Urinal # Voids 1 2 - Exam PHYSICAL EXAMINATION: GENERAL: 48-year-old gentleman in no acute distress at the time of my examination HEENT: Head is atraumatic, normocephalic. Pupils equal, round. Sclera anicteric. Conjunctiva are clear. Mucous membranes of the mouth are moist. Neck is supple. There is no elevated jugular venous pressure. No carotid bruit is heard. HEART EXAMINATION: Heart S1, S2 irregularly irregular . No murmur or gallop heard. CHEST EXAMINATION: Lungs reveal diminished air entry to bilateral bases. ABDOMEN: Soft, obese, distended, Bowel sounds are heard. No organomegaly noted. EXTREMITIES: 2+ peripheral pulses with evidence of peripheral edema and no calf tenderness noted. NEUROLOGIC patient is awake, alert and oriented X 3 . - Labs CBC & Chem 7: 10/24/18 06:54 10/24/18 06:54 Labs: Abnormal Lab Results - Last 24 Hours (Table) 10/23/18 10/23/18 10/24/18 Range/Units 13:18 17:35 00:37 MCHC (31.0-37.0) g/dL RDW (11.5-15.5) % APTT 45.1 H 42.1 H (22.0-30.0) sec BUN (9-20) mg/dL Creatinine (0.66-1.25) mg/dL Glucose (74-99) mg/dL Delta Bilirubin (0.0-0.2) mg/dL Troponin I 0.145 H* (0.000-0.034) ng/mL Total Protein (6.3-8.2) g/dL Albumin (3.5-5.0) g/dL 10/24/18 10/24/18 10/24/18 Range/Units 06:54 06:54 06:54 MCHC 30.9 L (31.0-37.0) g/dL RDW 16.0 H (11.5-15.5) % APTT 62.8 H (22.0-30.0) sec BUN 35 H (9-20) mg/dL Creatinine 1.51 H (0.66-1.25) mg/dL Glucose 161 H (74-99) mg/dL Delta Bilirubin 0.5 H (0.0-0.2) mg/dL Troponin I (0.000-0.034) ng/mL Total Protein 5.7 L (6.3-8.2) g/dL Albumin 3.2 L (3.5-5.0) g/dL Assessment and Plan Plan: Assessment and plan #1 systolic congestive heart failure acute on chronic #2 ischemic cardiomyopathy #3 ACS #4 persistent atrial fibrillation #5 accelerated hypertension Plan We will increase the dose of IV Lasix to a 3 times a day dose today. We will also discontinue the lisinopril and from Sunday start Entresto, discontinue metoprolol and start the patient on Coreg continue to monitor intake and output along with daily weights and daily lytes BUN and creatinine. Once the patient is stable from a heart failure perspective patient will require cardiac catheterization. DNP note has been reviewed, I agree with a documented findings and plan of care. Patient was seen and examined.
[2018-10-24 19:15] LABS: Magnesium 1.8 mg/dL (1.6-2.3)
[2018-10-24] MEDS: AMIODARONE 200 MG TAB PO SCH (20:46)
--- NOTE | 2018-10-24 22:57 | P.PN ---
Subjective This is a pleasant 48 years old male with no significant past medical history who presents because of increase abdominal and leg swelling. He states he was in [place] for a few days on the last 2 days he noticed that his abdominal girth was getting bigger, which continued after he came to [place]. In the last 3 days he was noted to have progressive bilateral leg swelling. However he denies chest pain. He denies dyspnea. And he denies abdominal pain he says that the abdominal swelling causing him more pressure like feeling. No nausea vomiting and no change in urine or bowel habits. On admission he has mild leukocytosis. However his creatinine was 1.2. And he has positive troponin at 0.14 and 0.14. Patient has been evaluated by taxation economist. Echo came back showing ejection fraction 20-25% and there is severe global hypokinesia with severe concentric left ventricular hypertrophy. Also patient has CT PA in the emergency room which was negative for PE On presentation also has high blood pressures and heart rate, EKG was showing atrial fibrillation. Patient was started on amiodarone drip for A. fib with RVR. 10/24/18 pt today feels better, he could sleep, with paroxysmal nocturnal dyspena, he feels his swelling is coming down in his belly and legs. pt has hypertensive emergency on admission , his BP is still not well controlled , taxation economist adjusted his antihypertensive medication . pt remains on heparin drip. the plan is for cardiac cath once his heart failure is controlled. pt denies dyspena and no chest pain . his legs are still significantly swollen. lasix has been increased from daily to three times daily. his creatinine went up from 1.2 to 1.5 mostly due to diuretic effect. we will keep monitoring . amiodarone orally is started by cardiology team as well. CONSTITUTIONAL: No fever, no malaise, no fatigue. HEENT: No recent visual problems or hearing problems. Denied any sore throat. CARDIOVASCULAR: No orthopnea, PND, no palpitations, no syncope. PULMONARY: no hemoptysis. GASTROINTESTINAL: No diarrhea, no nausea, no vomiting, no abdominal pain. Normoactive bowel sounds. NEUROLOGICAL: No headaches, no weakness, no numbness. HEMATOLOGICAL: Denies any bleeding or petechiae. GENITOURINARY: Denies any burning micturition, frequency, or urgency. MUSCULOSKELETAL/RHEUMATOLOGICAL: Denies any joint pain, swelling, or any muscle pain. ENDOCRINE: Denies any polyuria or polydipsia. Objective - Vital Signs Vital signs: Vital Signs Temp 97.4 F L 10/24/18 19:47 Pulse 86 10/24/18 19:47 Resp 16 10/24/18 19:47 BP 198/124 10/24/18 19:47 Pulse Ox 97 10/24/18 19:47 Intake & Output 10/24/18 10/24/18 10/25/18 06:59 18:59 06:59 Intake Total 25.331 880 Output Total 550 4550 Balance -524.995 -8520 Weight 124 kg Intake: Intake, IV Titration 25.331 Amount Amiodarone 450 mg In 23.602 Dextrose 5% in Water 250 ml @ 1 MG/MIN 33.33 mls/ hr IV .Q7H31M [facility] Rx#: [id number] Heparin Sod,Pork in 0.45% 1.729 NaCl 25,000 unit In 0.45 % NaCl 1 500ml.bag @ 20 mls/hr IV .Q24H [facility] Rx#: [id number] Oral 880 Output: Urine 550 4550 Other: Voiding Method Urinal Urinal # Voids 1 1 - Exam GENERAL: The patient is alert and oriented x3, not in any acute distress. Well developed, well nourished. HEENT: Pupils are round and equally reacting to light. EOMI. No scleral icterus. No conjunctival pallor. Normocephalic, atraumatic. No pharyngeal erythema. No thyromegaly. CARDIOVASCULAR: S1 and S2 present. No murmurs, rubs, or gallops. PULMONARY: Chest is clear to auscultation, no wheezing or crackles. ABDOMEN: Soft, nontender, nondistended, normoactive bowel sounds. No palpable organomegaly. MUSCULOSKELETAL: No joint swelling or deformity. -EXTREMITIES: No cyanosis, clubbing. bilateral leg edema NEUROLOGICAL: Gross neurological examination did not reveal any focal deficits. SKIN: No rashes. - Labs CBC & Chem 7: 10/24/18 06:54 10/24/18 18:31 Labs: Abnormal Lab Results - Last 24 Hours (Table) 10/24/18 10/24/18 10/24/18 Range/Units 00:37 06:54 06:54 MCHC 30.9 L (31.0-37.0) g/dL RDW 16.0 H (11.5-15.5) % APTT 42.1 H (22.0-30.0) sec BUN 35 H (9-20) mg/dL Creatinine 1.51 H (0.66-1.25) mg/dL Glucose 161 H (74-99) mg/dL Delta Bilirubin 0.5 H (0.0-0.2) mg/dL Total Protein 5.7 L (6.3-8.2) g/dL Albumin 3.2 L (3.5-5.0) g/dL 10/24/18 Range/Units 06:54 MCHC (31.0-37.0) g/dL RDW (11.5-15.5) % APTT 62.8 H (22.0-30.0) sec BUN (9-20) mg/dL Creatinine (0.66-1.25) mg/dL Glucose (74-99) mg/dL Delta Bilirubin (0.0-0.2) mg/dL Total Protein (6.3-8.2) g/dL Albumin (3.5-5.0) g/dL Assessment and Plan Assessment: Acute systolic CHF possible Ischemic cardiomyopathy Acute coronary syndrome, non-STEMI Atrial fibrillation's with RVR, started on amiodarone drip. accelerated hypertension Plan: This is a pleasant 48 this male who presents because of excessive leg swelling mostly due to acute systolic heart regular. Some ischemic elements. Cardiology consultation is appreciated. Labs and medication were reviewed.. Continue same treatment. Continue with symptomatic treatment. Resume home medication. Monitor lytes and vitals. DVT and GI prophylaxis. Further recommendations of the clinical course of the patient DVT prophylaxis: Subcutaneous heparin GI Prophylaxis: Pepcid PT/OT: Pending Prognosis is guarded
[2018-10-25] MEDS: HEPARIN SOD,PORK IN 0.45% NACL 25,000 UNIT in 0.45% NACL 1 500ML.BAG IV SCH (01:32)
[2018-10-25] MEDS: SODIUM CHLORIDE 0.9% 1,000 ML IV SCH (05:23)
[2018-10-25] MEDS: CARVEDILOL 6.25 MG TAB PO SCH (06:41)
[2018-10-25 07:15] LABS: Albumin 3.3 g/dL (3.5-5.0); Bilirubin, Delta 0.5 mg/dL (0.0-0.2); Bilirubin,Unconjugated 0.2 mg/dL (0.0-1.1); Calcium 9.5 mg/dL (8.4-10.2); Potassium 3.7 mmol/L (3.5-5.1); Total Bilirubin 0.7 mg/dL (0.2-1.3); Total Protein 5.9 g/dL (6.3-8.2)
[2018-10-25 07:42] LABS: Basophils # (A) 0.1 k/uL (0-0.2); Basophils % (A) 1 %; Eosinophils # (A) 0.3 k/uL (0-0.7); Eosinophils % (A) 4 %; HCT 47.2 % (39.0-53.0); HGB 14.8 gm/dL (13.0-17.5); Lymphocytes % (A) 12 %; MCH 27.8 pg (25.0-35.0); MCHC 31.4 g/dL (31.0-37.0); MCV 88.6 fL (80.0-100.0); Monocytes # (A) 0.8 k/uL (0-1.0); Monocytes % (A) 10 %; Neutrophils # (A) 5.6 k/uL (1.3-7.7); Neutrophils % (A) 72 %; Platelet Count 215 k/uL (150-450); RBC 5.33 m/uL (4.30-5.90); WBC 7.8 k/uL (3.8-10.6)
[2018-10-25] MEDS: SPIRONOLACTONE 25 MG TAB PO SCH (09:20)
[2018-10-25] MEDS: ASPIRIN 81 MG PO SCH (09:20)
[2018-10-25] MEDS: AMIODARONE 200 MG TAB PO SCH ×2 (09:20→20:54)
[2018-10-25] MEDS: HYDROCHLOROTHIAZIDE 25 MG TAB PO SCH (09:20)
[2018-10-25] MEDS: FUROSEMIDE 10 MG/ML 4 ML VIAL IV SCH ×3 (09:21→23:07)
[2018-10-25 11:19] VITALS: BMI 35.9
[2018-10-25] MEDS ORDERED: POTASSIUM CHLORIDE ER 20 MEQ TAB.ER PO STA (16:14)
--- NOTE | 2018-10-25 16:18 | P.PN ---
Subjective Progress Note Date: 10/25/18 This is a 48-year-old gentleman who was admitted with evidence of severe congestive heart failure and cardiomyopathy. Echocardiogram is consistent with hypertrophic cardiomyopathy with hypokinesis of the apical segment. The possibility of underlying ischemic heart disease cannot be excluded. Patient has been responding well. Patient is diuresing well and lost several pounds. The edema and ascites have come down. His blood pressure is still running high. I'll increase the dose of the Coreg and also add amlodipine and potassium supplement. His creatinine is improving. He will get Entresto from tomorrow. If blood pressure seemed to be resistant, we may do studies to rule out pheochromocytoma. Rest of the medication be continued. Electoral lites been followed closely. His potassium today is about 3.7 Objective - Vital Signs Vital signs: Vital Signs Temp 97.6 F 10/25/18 15:31 Pulse 124 H 10/25/18 15:32 Resp 16 10/25/18 15:31 BP 168/116 10/25/18 15:31 Pulse Ox 96 10/25/18 15:31 Intake & Output 10/24/18 10/25/18 10/25/18 18:59 06:59 18:59 Intake Total 880 7.325 960 Output Total 4550 4200 Balance -3670 -4192.675 960 Weight 116.8 kg 116.8 kg Intake: Intake, IV Titration 7.325 Amount Heparin Sod,Pork in 0.45% 7.325 NaCl 25,000 unit In 0.45 % NaCl 1 500ml.bag @ 20 mls/hr IV .Q24H [facility] Rx#: [id number] Oral 880 960 Output: Urine 4550 4200 Other: Voiding Method Urinal Urinal Urinal # Voids 1 - Exam GENERAL EXAM: Patient is alert and oriented and doesn't appear to be in any acute distress HEENT: Normocephalic. Normal reaction of pupils, equal size, normal range of extraocular motion. No erythema or exudates in the throat. NECK: No masses, no nuchal rigidity. CHEST: No chest wall deformity. LUNGS: Equal air entry with no crackles or wheeze. HEART: S1 and S2 normal with no audible mumurs or gallops. Regular rhythm, femorals equal on both sides.. ABDOMEN: Less distended SKIN: No rashes CENTRAL NERVOUS SYSTEM: No focal deficits. EXTREMITIES: Resolving edema - Labs CBC & Chem 7: 10/25/18 06:20 10/25/18 06:20 Labs: Abnormal Lab Results - Last 24 Hours (Table) 10/25/18 10/25/18 10/25/18 Range/Units 06:20 06:20 06:20 RDW 16.0 H (11.5-15.5) % APTT 58.9 H (22.0-30.0) sec BUN 25 H (9-20) mg/dL Creatinine 1.28 H (0.66-1.25) mg/dL Glucose 196 H (74-99) mg/dL Delta Bilirubin 0.5 H (0.0-0.2) mg/dL Alkaline Phosphatase 133 H (38-126) U/L Total Protein 5.9 L (6.3-8.2) g/dL Albumin 3.3 L (3.5-5.0) g/dL Assessment and Plan (1) Atrial flutter Current Visit: Yes Status: Acute Code(s): I48.92 - UNSPECIFIED ATRIAL FLUTTER SNOMED Code(s): 5550383 (2) Congestive heart failure Current Visit: Yes Status: Acute Code(s): I50.9 - HEART FAILURE, UNSPECIFIED SNOMED Code(s): 37525758 (3) Hypertensive emergency Current Visit: Yes Status: Acute Code(s): I16.1 - HYPERTENSIVE EMERGENCY SNOMED Code(s): 357078121425020 (4) Ischemic cardiomyopathy Current Visit: Yes Status: Acute Code(s): I25.5 - ISCHEMIC CARDIOMYOPATHY SNOMED Code(s): 170313238 Plan: Continue current medical therapy. Increase the dose of the Coreg and start Entresto from tomorrow. Follow electrolytes. Cardiac cath once patient's congestive heart failure resolved.
[2018-10-25] MEDS ORDERED: DIGOXIN 250 MCG/ML 2 ML AMP IVP ONE (16:30)
[2018-10-25] MEDS: CARVEDILOL 12.5 MG TAB PO SCH (18:02)
[2018-10-25] MEDS: amLODIPine 5 MG TAB PO SCH (18:02)
[2018-10-26] MEDS ORDERED: DIGOXIN 250 MCG/ML 2 ML AMP IVP ONE (01:00)
[2018-10-26] MEDS: HEPARIN SOD,PORK IN 0.45% NACL 25,000 UNIT in 0.45% NACL 1 500ML.BAG IV SCH (04:44)
[2018-10-26] MEDS: SODIUM CHLORIDE 0.9% 1,000 ML IV SCH (04:45)
[2018-10-26] MEDS: CARVEDILOL 12.5 MG TAB PO SCH ×2 (06:33→15:41)
[2018-10-26] MEDS: FUROSEMIDE 10 MG/ML 4 ML VIAL IV SCH ×3 (06:35→23:15)
[2018-10-26] MEDS: amLODIPine 5 MG TAB PO SCH (08:17)
[2018-10-26] MEDS: SPIRONOLACTONE 25 MG TAB PO SCH (08:17)
[2018-10-26] MEDS: ASPIRIN 81 MG PO SCH (08:17)
[2018-10-26] MEDS: AMIODARONE 200 MG TAB PO SCH ×2 (08:17→21:09)
[2018-10-26] MEDS: SACUBITRIL/VALSARTAN 24 MG-26 MG TABLET PO SCH ×2 (08:18→21:09)
[2018-10-26 08:49] LABS: Basophils # (A) 0.1 k/uL (0-0.2); Basophils % (A) 2 %; Eosinophils # (A) 0.3 k/uL (0-0.7); Eosinophils % (A) 4 %; HCT 53.4 % (39.0-53.0); HGB 17.1 gm/dL (13.0-17.5); Lymphocytes % (A) 14 %; MCH 28.6 pg (25.0-35.0); MCHC 32.1 g/dL (31.0-37.0); MCV 89.2 fL (80.0-100.0); Mean Platelet Volume 8.7; Monocytes # (A) 0.6 k/uL (0-1.0); Monocytes % (A) 9 %; Neutrophils # (A) 5.2 k/uL (1.3-7.7); Neutrophils % (A) 71 %; Platelet Count 245 k/uL (150-450); RBC 5.99 m/uL (4.30-5.90); RDW 15.7 % (11.5-15.5); WBC 7.3 k/uL (3.8-10.6)
[2018-10-26 09:02] LABS: Albumin 4.3 g/dL (3.5-5.0); Bilirubin, Delta 0.5 mg/dL (0.0-0.2); Bilirubin,Unconjugated 0.6 mg/dL (0.0-1.1); Calcium 10.6 mg/dL (8.4-10.2); Potassium 4.4 mmol/L (3.5-5.1); Total Bilirubin 1.1 mg/dL (0.2-1.3); Total Protein 7.6 g/dL (6.3-8.2)
--- NOTE | 2018-10-26 15:00 | P.PN ---
Subjective This is a 48-year-old male who is admitted with evidence of severe congestive heart failure and cardiomyopathy. This is all new onset on this admission. Echocardiogram obtained is consistent with hypertrophic cardiomyopathy with hypokinesia of the apical segment. The possibility of ischemic heart disease cannot be excluded until he undergoes cardiac catheterization. He is currently maintained on IV Lasix. [place] oh was started today. He is seen and examined resting comfortably in bed in no acute distress. He states his breathing seems to be getting better every day. He is up and walking around and is not noticing any significant exertional dyspnea. He denies chest pain, dizziness or palpitations. Edema is greatly improved throughout. Laboratory data reviewed, WBC 7.3, hemoglobin 17.1, hematocrit 53.4 , platelets 245, sodium 141, potassium 4.4, creatinine 1.44. Blood pressure 155 /104 heart rate 88 afebrile maintaining oxygen saturation on room air. Currently maintained on amiodarone 400 mg twice a day, amlodipine 5 mg daily, aspirin 81 mg daily, carvedilol 12.5 mg twice a day, Lasix 40 mg IV 3 times a day, heparin infusion, hydralazine is ordered when necessary, potassium supplementation, Aldactone 25 mg daily andEntresto 24/26 mg BID. GENERAL: Well-appearing, well-nourished and in no acute distress. NECK: Supple without JVD or thyromegaly. LUNGS: Breath sounds clear to auscultation bilaterally. Respiration equal and unlabored. No wheezes, rales or rhonchi. HEART: Regular rate and rhythm without murmurs, rubs or gallops. S1 and S2 heard. EXTREMITIES: Normal range of motion, trace bilateral lower extremity edema. No clubbing or cyanosis. Peripheral pulses intact. ASSESSMENT Acute systolic heart failure Suspect ischemic cardiomyopathy Atrial flutter, typical Hypertensive emergency Former nicotine dependence PLAN Repeat chest x-ray today. May be able to decrease Lasix pending results. Increased dose of Coreg to 25 mg twice a day. We will require cardiac catheterization once acute exacerbation of heart failure has resolved. Further recommendations to follow based upon clinical course. Nurse Practitioner note has been reviewed, I agree with a documented findings and plan of care. Patient was seen and examined. Objective - Vital Signs Vital signs: Vital Signs Temp 97.4 F L 10/26/18 12:00 Pulse 88 10/26/18 12:00 Resp 20 10/26/18 12:00 BP 155/104 10/26/18 12:00 Pulse Ox 96 10/26/18 12:00 Intake & Output 10/25/18 10/26/18 10/26/18 18:59 06:59 18:59 Intake Total 1200 8.16 100 Output Total 800 Balance 1200 8.16 -700 Weight 116.8 kg 112.8 kg 111.9 kg Intake: Intake, IV Titration 8.16 Amount Heparin Sod,Pork in 0.45% 8.16 NaCl 25,000 unit In 0.45 % NaCl 1 500ml.bag @ 20 mls/hr IV .Q24H [facility] Rx#: [id number] Oral 1200 100 Output: Urine 800 Other: Voiding Method Urinal Urinal # Voids 2 - Labs CBC & Chem 7: 10/26/18 07:51 10/26/18 07:51 Labs: Abnormal Lab Results - Last 24 Hours (Table) 10/26/18 10/26/18 10/26/18 Range/Units 07:51 07:51 07:51 RBC 5.99 H (4.30-5.90) m/uL Hct 53.4 H (39.0-53.0) % RDW 15.7 H (11.5-15.5) % APTT 60.4 H (22.0-30.0) sec Chloride 94 L (98-107) mmol/L Carbon Dioxide 35 H (22-30) mmol/L BUN 27 H (9-20) mg/dL Creatinine 1.44 H (0.66-1.25) mg/dL Glucose 198 H (74-99) mg/dL Calcium 10.6 H (8.4-10.2) mg/dL Delta Bilirubin 0.5 H (0.0-0.2) mg/dL
--- NOTE | 2018-10-26 17:27 | XR ---
EXAMINATION TYPE: XR chest 2V DATE OF EXAM: 10/26/2018 COMPARISON: CT pulmonary embolism study 10/23/2018 HISTORY: Dyspnea, follow-up TECHNIQUE: Frontal and lateral views of the chest are obtained. FINDINGS: There is no focal air space opacity, pleural effusion, or pneumothorax seen. Right pleural effusion has decreased in size in the interval. The cardiac silhouette size is within normal limits. The osseous structures are intact. IMPRESSION: No acute cardiopulmonary process. Interval decreased size of right pleural effusion.
[2018-10-26 23:21] LABS: Appearance,Urine Clear (Clear); Bilirubin,Urine Negative (Negative); Blood,Urine Negative (Negative); Color,Urine Light Yellow; Glucose,Urine (UA) 3+ (Negative); Ketones,Urine Negative (Negative); Leukocyte Esterase,Urine Negative (Negative); Nitrite,Urine Negative (Negative); PH, Urine 6.5 (5.0-8.0); Protein,Urine Negative (Negative); Specific Gravity,Urine 1.008 (1.001-1.035); Urobilinogen,Urine <2.0 mg/dL (<2.0)
--- NOTE | 2018-10-27 00:50 | PN ---
PROGRESS NOTE DATE OF SERVICE: 10/26/2018 Progress note: This 48-year-old gentleman who was admitted with CHF with acute on chronic systolic dysfunction is being closely monitored. Patient also had accelerated hypertensive urgency also. Most recent chest x-ray which was reviewed by me today showed evidence of mild CHF and cardiomegaly also. PAST MEDICAL HISTORY: Reviewed. REVIEW OF SYSTEMS: Cardiovascular system: No angina or palpitations. Respiration: As mentioned. GI : No nausea or vomiting. no dysuria. Central nervous system: No focal deficits. CURRENT MEDICATIONS: Reviewed include : 1. Cordarone 400 mg p.o. b.i.d. 2. Norvasc 5 mg daily. 3. Aspirin 81 mg daily. 4. Coreg 25 mg b.i.d. 5. Lasix 40 mg IV q.8h. 6. Heparin. 7. Heparin drip. 8. Omeprazole 25 mg p.o. daily. 9. Narcan. 10.Entresto. 11.Aldactone. PHYSICAL EXAM: Patient is alert, oriented x3. Pulse 90, blood pressure 160/83, respiration 20 , temperature 97.4, pulse ox 98% on room air HEENT is conjunctivae normal. Oral mucosa moist. Neck is no jugular venous distention. No carotid bruit. No lymph node enlargement. Cardiovascular: S1, S2, ejection systolic murmur, few scattered rhonchi and crackles. ABDOMEN: Soft, nontender. Legs are no system focal deficits. Other labs are reviewed, white count 7.6, hemoglobin 17.1. Creatinine 1.44, calcium is 10.6. ASSESSMENT: 1. Congestive heart failure exacerbation with acute on chronic systolic dysfunction with possibly ischemic cardiomyopathy. 2. Acute with acute non ST segment anterior wall myocardial infarction atrial fibrillation with fast ventricular rate. 3. Hypertensive urgency. 4. Increased creatinine with chronic kidney disease. 5. Remote history of nicotine dependence. RECOMMENDATIONS AND DISCUSSION: In this 48-year-old gentleman who presented with multiple complex medical issues , we will monitor the patient closely, continue the current management and symptomatic treatment. Otherwise at this time I recommend continue with the current medication. Monitor creatinine closely. Monitor fluid and electrolytes balance closely . Otherwise, closely follow with Cardiology. Prognosis guarded because of multiple complications medical issues. Further recommendations to follow. MMODL / IJN: [id number] / [facility]
[2018-10-27] MEDS: SODIUM CHLORIDE 0.9% 1,000 ML IV SCH ×2 (03:08→16:00)
[2018-10-27] MEDS: HEPARIN SOD,PORK IN 0.45% NACL 25,000 UNIT in 0.45% NACL 1 500ML.BAG IV SCH (03:08)
[2018-10-27 06:15] LABS: Basophils # (A) 0.1 k/uL (0-0.2); Basophils % (A) 1 %; Eosinophils # (A) 0.3 k/uL (0-0.7); Eosinophils % (A) 4 %; HCT 51.6 % (39.0-53.0); HGB 16.6 gm/dL (13.0-17.5); Lymphocytes # (A) 1.2 k/uL (1.0-4.8); Lymphocytes % (A) 17 %; MCH 28.3 pg (25.0-35.0); MCHC 32.2 g/dL (31.0-37.0); MCV 88.1 fL (80.0-100.0); Mean Platelet Volume 8.3; Monocytes # (A) 0.6 k/uL (0-1.0); Monocytes % (A) 9 %; Neutrophils # (A) 4.9 k/uL (1.3-7.7); Neutrophils % (A) 68 %; Platelet Count 205 k/uL (150-450); RBC 5.85 m/uL (4.30-5.90); RDW 15.5 % (11.5-15.5); WBC 7.2 k/uL (3.8-10.6)
[2018-10-27 06:27] LABS: Calcium 10.2 mg/dL (8.4-10.2); Potassium 4.6 mmol/L (3.5-5.1)
[2018-10-27] MEDS: CARVEDILOL 12.5 MG TAB PO SCH ×2 (06:48→15:59)
[2018-10-27] MEDS: FUROSEMIDE 10 MG/ML 4 ML VIAL IV SCH (06:48)
[2018-10-27] MEDS: ASPIRIN 81 MG PO SCH (09:09)
[2018-10-27] MEDS: AMIODARONE 200 MG TAB PO SCH ×2 (09:09→21:06)
[2018-10-27] MEDS: SPIRONOLACTONE 25 MG TAB PO SCH (09:09)
[2018-10-27] MEDS: amLODIPine 5 MG TAB PO SCH (09:09)
[2018-10-27] MEDS: SACUBITRIL/VALSARTAN 24 MG-26 MG TABLET PO SCH (09:09)
[2018-10-27] MEDS ORDERED: ALPRAZolam 0.5 MG TAB PO PRN (13:04)
[2018-10-27] MEDS ORDERED: ALPRAZolam 0.25 MG TAB PO PRN (13:04)
[2018-10-27] MEDS ORDERED: NITROGLYCERIN SL TABS 0.4 MG TAB SUBLINGUAL PRN (13:04)
--- NOTE | 2018-10-27 13:30 | P.PN ---
Subjective Progress Note Date: 10/27/18 This is a 48-year-old gentleman who has been experiencing increasing abdominal girth and distention and also some peripheral edema. He claims that all started about 2 weeks ago when he went to [place]. He was also having some palpitations. Denied any chest pain. He went to the walk-in clinic with several complaints. His blood pressure was found to be very high. Patient was referred to the emergency room. In the emergency room patient was found to have significant elevation of the blood pressure. He was treated with IV labetalol and also metoprolol. Cardiology consult is initiated. His monitor showed evidence of atrial fibrillation flutter with rapid ventricular response. His chest x-ray showed evidence of cardiomegaly and congestive heart failure. His proBNP is elevated. Clinically patient has JVD and probably ascites and peripheral edema. It appears that patient has evidence of systolic congestive heart failure which is acute. His EKG showed evidence of possible anteroseptal [place]. Bedside echo [place] showed apical hypokinesia with severely impaired LV function with ejection fraction about 25-30%. It appears that most probably patient has ischemic cardiomyopathy, atrial fibrillation and CHF. Patient was initiated on IV amiodarone, and continued on IV diuretics. His blood pressure this morning 166/118 with a heart rate in the 70s, 99% on room air. White blood cell count 7, hemoglobin 14.5, platelet count 222. Sodium 138, potassium 3.6, BUN 35, creatinine 1.5. Patient has been diuresing, weight is essentially unchanged from yesterday. We will increase his dose of IV Lasix. We will also discontinue the SHAE inhibitor and start the patient on Entresto from Sunday. 09/27/2018 Patient was seen and examined this morning, overall is feeling significantly better. Denies any PND or orthopnea. Breathing is overall stable. Laboratory data from today, sodium 138, potassium 4.6, BUN 32, creatinine 1.4. We will gently hydrate the patient today, check creatinine in the morning and tentatively book for cardiac catheterization. Blood pressure today 178/107, we' ll increase the dose of Entresto. Objective - Vital Signs Vital signs: Vital Signs Temp 97.8 F 10/27/18 12:00 Pulse 78 10/27/18 12:00 Resp 20 10/27/18 12:00 BP 178/107 10/27/18 12:00 Pulse Ox 98 10/27/18 12:00 Intake & Output 10/26/18 10/27/18 10/27/18 18:59 06:59 18:59 Intake Total 100 Output Total 800 3250 Balance -700 -3250 Weight 111.9 kg 109.7 kg 109 kg Intake: Oral 100 Output: Urine 800 3250 Other: Voiding Method Urinal # Voids 2 1 - Exam PHYSICAL EXAMINATION: GENERAL: 48-year-old gentleman in no acute distress at the time of my examination HEENT: Head is atraumatic, normocephalic. Pupils equal, round. Sclera anicteric. Conjunctiva are clear. Mucous membranes of the mouth are moist. Neck is supple. There is no elevated jugular venous pressure. No carotid bruit is heard. HEART EXAMINATION: Heart S1, S2 irregularly irregular . No murmur or gallop heard. CHEST EXAMINATION: Lungs clear to auscultation ABDOMEN: Soft, obese, distended, Bowel sounds are heard. No organomegaly noted. EXTREMITIES: 2+ peripheral pulses with no evidence of peripheral edema and no calf tenderness noted. NEUROLOGIC patient is awake, alert and oriented X 3 . - Labs CBC & Chem 7: 10/27/18 05:39 10/27/18 05:39 Labs: Abnormal Lab Results - Last 24 Hours (Table) 10/26/18 10/27/18 10/27/18 Range/Units 22:00 05:39 05:39 APTT 59.9 H (22.0-30.0) sec Chloride 97 L (98-107) mmol/L Carbon Dioxide 32 H (22-30) mmol/L BUN 32 H (9-20) mg/dL Creatinine 1.49 H (0.66-1.25) mg/dL Glucose 201 H (74-99) mg/dL Urine Glucose (UA) 3+ H (Negative) Assessment and Plan Plan: Assessment and plan #1 systolic congestive heart failure acute on chronic #2 ischemic cardiomyopathy #3 ACS #4 persistent atrial fibrillation #5 accelerated hypertension Plan We will increase the dose of Entresto today. Gently hydrate the patient at 50 mL per hour, check lytes BUN and creatinine in the morning, if creatinine is stable proceed with cardiac catheterization. The risks and the benefits were explained to the patient in detail and he is willing to proceed. DNP note has been reviewed, I agree with a documented findings and plan of care. Patient was seen and examined.
[2018-10-27] MEDS: FUROSEMIDE 40 MG TAB PO SCH (15:58)
--- NOTE | 2018-10-27 19:27 | PN ---
PROGRESS NOTE DATE OF SERVICE: 10/27/2018 This is a 48-year-old gentleman who was admitted CHF acute exacerbation with acute on chronic systolic dysfunction and possible severe cardiomyopathy, scheduled to have cardiac catheterization tomorrow by Cardiology. The most recent chest x-ray did show some improvement. The Entresto dose has been increased. No chest pain. No palpitations. No fever. EXAM: Alert and oriented x3. Pulse 78, blood pressure 178/107, respirations 20, temperature 97.8, pulse ox 98% on room air. HEENT: Conjunctivae normal. Oral mucosa moist. NECK: No jugular venous distention. No lymph node enlargement. CARDIOVASCULAR: S1, S2. RESPIRATORY: Diminished breath sounds at the bases. Scattered rhonchi and crackles. ABDOMEN: Soft, nontender. LEGS: No swelling. NERVOUS SYSTEM: No focal deficits. LABS: Creatinine is 1.49. UA noted. ASSESSMENT: 1. Congestive heart failure acute exacerbation with acute on chronic systolic dysfunction with possible ischemic cardiomyopathy. 2. Acute non ST elevation myocardial infarction. 3. Atrial fibrillation with fast ventricular rate. 4. Hypertensive urgency. 5. Increased creatinine with chronic kidney disease, Stage III. 6. Remote history of nicotine dependence. RECOMMENDATIONS: Recommend to continue current management, continue symptomatic treatment. Otherwise, at this time cardiac catheterization per Cardiology. Guarded prognosis because of multiple complex medical issues. Further recommendations to follow. MMODL / IJN: [id number] /
[2018-10-27] MEDS: SACUBITRIL/VALSARTAN 49 MG-51 MG TABLET PO SCH (21:06)
[2018-10-27] MEDS: hydrALAZINE HCL 25 MG TAB PO PRN (23:14)
[2018-10-28] MEDS: SODIUM CHLORIDE 0.9% 1,000 ML IV SCH ×3 (05:41→16:15)
[2018-10-28] MEDS: HEPARIN SOD,PORK IN 0.45% NACL 25,000 UNIT in 0.45% NACL 1 500ML.BAG IV SCH ×2 (05:57→21:23)
[2018-10-28] MEDS: AMIODARONE 200 MG TAB PO SCH ×2 (05:58→21:24)
[2018-10-28] MEDS: CARVEDILOL 12.5 MG TAB PO SCH ×2 (05:58→17:53)
[2018-10-28] MEDS: SACUBITRIL/VALSARTAN 49 MG-51 MG TABLET PO SCH ×2 (05:58→21:24)
[2018-10-28] MEDS: amLODIPine 5 MG TAB PO SCH (05:58)
[2018-10-28] MEDS ORDERED: ASPIRIN 325 MG TAB PO ONE (06:00)
[2018-10-28] MEDS ORDERED: SODIUM CHLORIDE 0.9% 1,000 ML in EMPTY BAG 1 BAG IV ONE (06:00)
[2018-10-28] MEDS ORDERED: ATORVASTATIN 80 MG TAB PO ONE (06:00)
[2018-10-28 06:02] LABS: Glucose,Whole Blood 210 mg/dL (75-99)
[2018-10-28 06:29] LABS: Basophils # (A) 0.1 k/uL (0-0.2); Basophils % (A) 1 %; Eosinophils # (A) 0.3 k/uL (0-0.7); Eosinophils % (A) 5 %; HCT 51.6 % (39.0-53.0); HGB 16.3 gm/dL (13.0-17.5); Lymphocytes # (A) 1.3 k/uL (1.0-4.8); Lymphocytes % (A) 18 %; MCHC 31.7 g/dL (31.0-37.0); MCV 88.3 fL (80.0-100.0); Mean Platelet Volume 8.2; Monocytes # (A) 0.5 k/uL (0-1.0); Monocytes % (A) 8 %; Neutrophils # (A) 4.5 k/uL (1.3-7.7); Neutrophils % (A) 66 %; Platelet Count 209 k/uL (150-450); RBC 5.84 m/uL (4.30-5.90); RDW 15.4 % (11.5-15.5); WBC 6.8 k/uL (3.8-10.6)
[2018-10-28 06:43] LABS: Calcium 9.8 mg/dL (8.4-10.2)
[2018-10-28] MEDS: FUROSEMIDE 40 MG TAB PO SCH ×2 (09:29→17:53)
[2018-10-28] MEDS: SPIRONOLACTONE 25 MG TAB PO SCH (09:29)
[2018-10-28 13:10] LABS: Hemoglobin A1C 7.8 % (4.0-6.0)
[2018-10-28] MEDS ORDERED: fentaNYL (PF) 50 MCG/ML 2 ML AMP IVP ONE (14:36)
[2018-10-28] MEDS ORDERED: MIDAZOLAM 2 MG/2 ML VIAL IVP ONE (14:36)
[2018-10-28] MEDS ORDERED: IV FLUID CONTINUATION 750 ML IV ONE (14:40)
[2018-10-28] MEDS ORDERED: LIDOCAINE 1% (PF) 10MG/ML VIAL SQ ONE (14:40)
[2018-10-28] MEDS ORDERED: VERAPAMIL SYRINGE (5 MG/10 ML) INTRAARTER ONE ×2 (14:44→15:20)
[2018-10-28] MEDS ORDERED: IOPAMIDOL-370 125ML BTL INJ ONE (15:19)
[2018-10-28] MEDS ORDERED: RX INFO: IV CONTRAST WAS GIVEN 1 EACH MISC MISCELLANE PRN (15:40)
--- NOTE | 2018-10-28 15:49 | P.CARDCATH ---
Date of Procedure: 10/28/18 Preoperative Diagnosis: Ischemic and nonischemic heart myopathy, congestive heart failure Postoperative Diagnosis: The same Procedure(s) Performed: Left heart catheterization with selective coronary arteriography. No LV gram Description of Procedure: HISTORY: This is a 48-year-old gentleman with history of hypertensive coronary vascular disease who was admitted to the hospital with severe CHF and evidence of ischemic and nonischemic cardio myopathy. Patient is advised to have a cardiac catheterization for definite diagnosis. CONSENT:I have discussed the risks, benefits and alternative therapies for the above-mentioned procedure and for both sedation/analgesia as well as necessary blood product administration, if indicated, as they pertain to this patient. The patient has indicated understanding and acceptance of the risks and procedures discussed. PROCEDURE: Patient was brought to the lab in a fasting state. Patient was given some IV sedation. The right wrist is infiltrated with lidocaine and right radial artery was entered using Seldinger technique. A 6-Irish catheter was left in place and selective coronary arteriography was performed. Patient tolerated the procedure well. TR band was applied for hemostasis. No immediate complications were noted and patient was transferred to [facility] in a stable condition. He had patient is found have borderline critical lesion in the mid LAD and total occlusion of the PLV branch of the right coronary artery. Patient to be evaluated by Dr. Dotson for possible stenting of the LAD. Conscious Sedation: Versed 1mg Fentanyl 50 g Duration 25 minutes minutes HEMODYNAMICS: The aortic pressure is about 160/110. Left ankle end-diastolic pressure is 12. There was no gradient across the aortic valve SELECTIVE CORONARY ARTERIOGRAPHY: LEFT MAIN: Normal length and patent THE LEFT ANTERIOR DESCENDING CORONARY ARTERY:. This is a good caliber vessel giving rise to good-sized septal and diagonal branch. The mid LAD has about 70% stenosis followed by another 60% stenosis. THE LEFT CIRCUMFLEX AND IS CORONARY ARTERY: This a small-caliber vessel with mild disease involving the OM branch THE RIGHT CORONARY ARTERY:. This a dominant vessel with near total occlusion of the PLV branch. This also has collateral from the left system LEFT VENTRICULOGRAPHY: Not performed FINAL IMPRESSION: And a total occlusion of the PLV branch. Possible critical lesion in mid LAD PLAN: Continues medical therapy. To be evaluated for possible stent placement of the LAD by Dr. Dotson PROGNOSIS: Guarded
[2018-10-28 20:57] LABS: Glucose,Whole Blood 352 mg/dL (75-99)
[2018-10-28] MEDS: INSULIN ASPART 100 UNIT/ML 1 ML 10 ML VIAL SQ SCH (21:31)
--- NOTE | 2018-10-28 21:34 | PN ---
PROGRESS NOTE DATE OF SERVICE: 10/28/2018 This 48-year-old gentleman was admitted with CHF acute exacerbation acute on chronic systolic dysfunction with possibly ischemic cardiomyopathy is being closely monitored at this time. The patient underwent a cardiac cath today by the Cardiology, which showed total occlusion of the PLV and critical lesion in the mid LAD. Medical treatment and stent placement is also considered. No chest pain. No palpitations. No fever. EXAM: On exam, alert and oriented times three. Pulse 64, blood pressure is 120/77, respiration rate 17, temperature normal, pulse ox 97% on room air. HEENT is conjunctivae normal. Neck is no jugular venous distention. Cardiovascular: S1, S2 muffled. RESPIRATORY: Breath sounds diminished in the bases. A few rhonchi. No crackles. Abdomen is soft, nontender. Legs are no edema. Central nervous system: No focal deficits. LABORATORY DATA: CBC within normal limits. Creatinine is 1.15. ASSESSMENT: 1. Congestive heart failure acute exacerbation with acute on chronic systolic dysfunction with possible ischemic cardiomyopathy. 2. Status post cardiac catheterization showing a total occlusion of the PLV branch and critical lesion in the mid left anterior descending coronary artery. 3. Acute non ST-segment elevation myocardial infarction, present on admission. 4. Atrial fibrillation with fast ventricular rate. 5. Hypertensive urgency. 6. Increased creatinine with chronic kidney stage III. 7. Remote history of nicotine dependence. RECOMMENDATIONS AND DISCUSSION: Recommend to continue current medication, management and continue hydration. Symptomatic treatment. Continue closely monitor. Cardiology evaluation, possible intervention. Guarded prognosis. Further recommendations to follow. MMODL / IJN: [id number] /
[2018-10-29 05:44] LABS: Glucose,Whole Blood 235 mg/dL (75-99)
[2018-10-29] MEDS: SODIUM CHLORIDE 0.9% 1,000 ML IV SCH ×4 (05:44→12:44)
[2018-10-29] MEDS: INSULIN ASPART 100 UNIT/ML 1 ML 10 ML VIAL SQ SCH ×4 (06:52→20:50)
[2018-10-29] MEDS: CARVEDILOL 12.5 MG TAB PO SCH ×2 (06:54→17:25)
[2018-10-29 07:09] LABS: Basophils # (A) 0.1 k/uL (0-0.2); Basophils % (A) 1 %; Eosinophils # (A) 0.3 k/uL (0-0.7); Eosinophils % (A) 4 %; HCT 49.7 % (39.0-53.0); HGB 15.7 gm/dL (13.0-17.5); Lymphocytes # (A) 1.4 k/uL (1.0-4.8); Lymphocytes % (A) 20 %; MCHC 31.5 g/dL (31.0-37.0); MCV 88.8 fL (80.0-100.0); Monocytes # (A) 0.5 k/uL (0-1.0); Monocytes % (A) 8 %; Neutrophils # (A) 4.3 k/uL (1.3-7.7); Neutrophils % (A) 64 %; Platelet Count 209 k/uL (150-450); RDW 15.5 % (11.5-15.5); WBC 6.6 k/uL (3.8-10.6)
[2018-10-29 07:28] LABS: Potassium 4.1 mmol/L (3.5-5.1)
[2018-10-29 07:29] LABS: Anion Gap 7 mmol/L; Blood Urea Nitrogen 22 mg/dL (9-20); Calcium 9.8 mg/dL (8.4-10.2); Carbon Dioxide 28 mmol/L (22-30); Chloride 102 mmol/L (98-107); Glucose 240 mg/dL (74-99); Sodium 137 mmol/L (137-145)
[2018-10-29] MEDS: SPIRONOLACTONE 25 MG TAB PO SCH (08:59)
[2018-10-29] MEDS: amLODIPine 5 MG TAB PO SCH (08:59)
[2018-10-29] MEDS: ASPIRIN 81 MG PO SCH (08:59)
[2018-10-29] MEDS: AMIODARONE 200 MG TAB PO SCH ×2 (08:59→20:22)
[2018-10-29] MEDS: FUROSEMIDE 40 MG TAB PO SCH ×2 (08:59→15:48)
[2018-10-29] MEDS ORDERED: ASPIRIN 81 MG PO STA (10:21)
[2018-10-29] MEDS ORDERED: IV FLUID CONTINUATION 500 ML IV ONE (10:42)
[2018-10-29] MEDS ORDERED: fentaNYL (PF) 50 MCG/ML 2 ML AMP IV ONE (11:06)
[2018-10-29] MEDS ORDERED: LIDOCAINE 1% INJ 10MG/ML (20 ML MDV) SQ ONE (11:09)
[2018-10-29] MEDS ORDERED: VERAPAMIL SYRINGE (5 MG/10 ML) INTRAARTER ONE (11:10)
[2018-10-29] MEDS ORDERED: BIVALIRUDIN 250 MG in SODIUM CHLORIDE 0.9% 50 ML IV ONE (11:14)
[2018-10-29] MEDS ORDERED: BIVALIRUDIN BOLUS 250 MG/50 ML IV ONE (11:14)
[2018-10-29] MEDS ORDERED: NITROGLYCERIN 1000MCG/10ML SYRINGE INTRACORON ONE (11:20)
[2018-10-29] MEDS ORDERED: CLOPIDOGREL 75 MG TAB PO ONE (11:22)
[2018-10-29] MEDS ORDERED: IOPAMIDOL-370 100ML BTL INJ ONE ×2 (11:25→11:31)
[2018-10-29] MEDS ORDERED: NITROGLYCERIN SL TABS 0.4 MG TAB SUBLINGUAL PRN (11:42)
[2018-10-29] MEDS ORDERED: RX INFO: IV CONTRAST WAS GIVEN 1 EACH MISC MISCELLANE PRN (11:42)
[2018-10-29] MEDS ORDERED: MAG HYDROX/AL HYDROX/SIMETH 30 ML CUP PO PRN (11:42)
[2018-10-29] MEDS ORDERED: ZOLPIDEM 5 MG TAB PO PRN (11:42)
[2018-10-29] MEDS ORDERED: ATROPINE SULFATE 0.1 MG/ML 10ML SYRINGE IV PRN (11:42)
[2018-10-29] MEDS ORDERED: SODIUM CHLORIDE 0.9% 1,000 ML IV SCH (11:45)
--- NOTE | 2018-10-29 12:00 | PTCA ---
PERCUTANEOUSTRANS CORORONARY ANGIOGRAPHY Mr. Obrien is a 48-year-old male with no prior documented history of coronary artery disease who presented with symptoms of progressive dyspnea with increased peripheral edema and finding of congestive heart failure. He was found to have a severely impaired left ventricular systolic function and he was in atrial flutter. He was evaluated by Dr. Agarwal and underwent cardiac catheterization, was found to have critical stenosis involving the mid LAD. In view of that, recommendation made regarding cardiac catheterization, the procedures risks and complications were discussed with the patient who is in full understanding and agreement. PROCEDURE: Patient was brought to the laboratory technical specialist in a fasting semi-sedated state after receiving fentanyl and Benadryl and achieving moderate conscious sedated state. Using Xylocaine anesthesia and Seldinger technique, a 6-Ugandan sheath was introduced in the left radial artery. Left coronary angiography performed using 6-Ugandan 3.75 EBU guiding catheter, after cannulating the left main a 0.014 balanced medium weight J-wire was advanced across the lesion and positioned distally. Then a 3.0 x 18 mm Xience stent was deployed postdilated at 16 atmospheres. After the last inflation, after appropriate wait the balloon and the guidewire were withdrawn back in the guiding catheter. Images were obtained repeated. Those images reveal stable successful stenting. At that point, the guiding catheter, the balloon and the guidewire were removed. The sheath was removed. Hemostasis was obtained with deployment of a TR band. There was no immediate complication. Patient is returned to his room in stable condition. Of note, the patient received Angiomax per protocol as well as oral loading dose of clopidogrel. He had no chest discomfort or EKG changes with the inflations. RESULTS: Successful stenting of the mid left anterior descending artery with reduction of stenosis from 70% to 0%. RECOMMENDATION: Patient will be continued on aspirin, Plavix, beta quan. Anticoagulation will be initiated because of his atrial flutter and he will be evaluated by Dr. Agarwal regarding attempt to restore sinus mechanism. Those findings and recommendation were discussed with the patient and his family who are in full understanding and agreement. Duration of procedure is 25 minutes. MMODL / IJN: [id number] /
[2018-10-29] MEDS: ISOSORBIDE MONONITRATE ER 30 MG TAB.ER.24H PO SCH (13:10)
[2018-10-29] MEDS: SACUBITRIL/VALSARTAN 49 MG-51 MG TABLET PO SCH ×2 (13:10→20:23)
[2018-10-29] MEDS ORDERED: HEPARIN SODIUM,PORCINE 5,000 UNIT/ML 1 ML VIAL IV PRN (19:25)
[2018-10-29] MEDS ORDERED: HEPARIN SOD,PORK IN 0.45% NACL 25,000 UNIT in 0.45% NACL 1 500ML.BAG IV SCH (19:30)
--- NOTE | 2018-10-29 20:18 | PN ---
PROGRESS NOTE DATE OF SERVICE: 10/29/2018 DATE OF SERVICE: This 48-year-old gentleman who was admitted with CHF acute exacerbation also had cardiac catheterization and stenting also. The patient underwent stenting of the mid left anterior descending artery with reduction of stenosis 70% to 0%. The patient being closely monitored. No chest pain. No palpitations. No fever. EXAM: Alert and oriented times three. Pulse is 89, blood pressure 143/66, respirations 18, temperature normal. Pulse ox 97% on room air. HEENT: Conjunctivae normal. Neck: No jugular venous distention. Cardiovascular: S1, S2. Respirations: Breath sounds diminished in the bases. A few scattered rhonchi. No crackles. Abdomen is soft. Nervous system: No focal deficits. LABORATORY DATA: CBC within normal limits. Sodium 130, potassium 4.1, glucose 240. ASSESSMENT: 1. Congestive heart failure, acute exacerbation with acute on chronic systolic dysfunction with possible ischemic cardiomyopathy. 2. Status post cardiac catheterization showing total occlusion of the PLV branch with critical lesion in the mid left anterior descending artery status post stenting. 3. Acute non-ST segment elevation myocardial infarction, present on admission. 4. Atrial fibrillation with fast ventricular rate. 5. Hypertensive urgency. 6. Increased creatinine with chronic kidney stage III. 7. Remote history of nicotine dependence. RECOMMENDATIONS AND DISCUSSION: Continue current medications, management. Symptomatic treatment. Otherwise, at this time, I recommend continue with antiplatelet agents. Closely follow with Cardiology. Monitor fluid and electrolytes balance closely. Further recommendations to follow. MMODL / IJN: [id number] /
[2018-10-29] MEDS: hydrALAZINE HCL 50 MG TAB PO SCH (20:22)
[2018-10-30 02:59] LABS: Calcium 9.8 mg/dL (8.4-10.2); Potassium 4.5 mmol/L (3.5-5.1)
[2018-10-30 06:03] VITALS: TEMP 97.4
[2018-10-30] MEDS: INSULIN ASPART 100 UNIT/ML 1 ML 10 ML VIAL SQ SCH ×2 (06:05→12:29)
[2018-10-30] MEDS: CARVEDILOL 12.5 MG TAB PO SCH (06:07)
[2018-10-30] MEDS: SODIUM CHLORIDE 0.9% 1,000 ML IV SCH (08:01)
[2018-10-30] MEDS: AMIODARONE 200 MG TAB PO SCH (08:09)
[2018-10-30] MEDS: ASPIRIN 81 MG PO SCH (08:09)
[2018-10-30] MEDS: FUROSEMIDE 40 MG TAB PO SCH (08:09)
[2018-10-30] MEDS: SACUBITRIL/VALSARTAN 49 MG-51 MG TABLET PO SCH (08:09)
[2018-10-30] MEDS: ISOSORBIDE MONONITRATE ER 30 MG TAB.ER.24H PO SCH (08:09)
[2018-10-30] MEDS: SPIRONOLACTONE 25 MG TAB PO SCH (08:09)
[2018-10-30] MEDS: hydrALAZINE HCL 50 MG TAB PO SCH (08:09)
[2018-10-30] MEDS ORDERED: CLOPIDOGREL 75 MG TAB PO SCH (09:00)
--- NOTE | 2018-10-30 11:08 | P.PN ---
Subjective This is a pleasant 48 years old male with no significant past medical history who presents because of increase abdominal and leg swelling. He states he was in [place] for a few days on the last 2 days he noticed that his abdominal girth was getting bigger, which continued after he came to [place]. In the last 3 days he was noted to have progressive bilateral leg swelling. However he denies chest pain. He denies dyspnea. And he denies abdominal pain he says that the abdominal swelling causing him more pressure like feeling. No nausea vomiting and no change in urine or bowel habits. On admission he has mild leukocytosis. However his creatinine was 1.2. And he has positive troponin at 0.14 and 0.14. Patient has been evaluated by slumber room attendant. Echo came back showing ejection fraction 20-25% and there is severe global hypokinesia with severe concentric left ventricular hypertrophy. Also patient has CT PA in the emergency room which was negative for PE On presentation also has high blood pressures and heart rate, EKG was showing atrial fibrillation. Patient was started on amiodarone drip for A. fib with RVR. 10/24/18 pt today feels better, he could sleep, with paroxysmal nocturnal dyspena, he feels his swelling is coming down in his belly and legs. pt has hypertensive emergency on admission , his BP is still not well controlled , slumber room attendant adjusted his antihypertensive medication . pt remains on heparin drip. the plan is for cardiac cath once his heart failure is controlled. pt denies dyspena and no chest pain . his legs are still significantly swollen. lasix has been increased from daily to three times daily. his creatinine went up from 1.2 to 1.5 mostly due to diuretic effect. we will keep monitoring . amiodarone orally is started by cardiology team as well. 10/30/2018 Patient was lying in bed, no chest pain or dyspnea. He was asking to be discharged. No dizziness. Patient continued to be on heparin drip and IV fluids. He is also on aspirin and Plavix. He is a status post stenting of the left anterior descending arteries with reduction of stenosis from 70% to 0%. Blood pressure is better controlled with multiple antihypertensive medications. And heart rate within normal limits at 85. Oxygen saturation 97% on room air. His creatinine is high at 1.46, Objective - Vital Signs Vital signs: Vital Signs Temp 97.4 F L 10/30/18 06:01 Pulse 85 10/30/18 08:21 Resp 18 10/30/18 08:21 BP 139/70 10/30/18 08:18 Pulse Ox 97 10/30/18 08:18 Intake & Output 10/29/18 10/30/18 10/30/18 18:59 06:59 18:59 Intake Total 1003.9 433.333 409.094 Output Total 1300 Balance -296.1 433.333 409.094 Weight 109.9 kg Intake: IV 130 Intake, IV Titration 3.9 433.333 169.094 Amount Heparin Sod,Pork in 0.45% 3.9 NaCl 25,000 unit In 0.45 % NaCl 1 500ml.bag @ 20 mls/hr IV .Q24H [facility] Rx#: [id number] Heparin Sod,Pork in 0.45% 133.333 169.094 NaCl 25,000 unit In 0.45 % NaCl 1 500ml.bag @ 9. 058 UNITS/KG/HR 20 mls/hr IV .Q24H [facility] Rx#: [id number] Sodium Chloride 0.9% 1, 300 000 ml @ 20 mls/hr IV . Q24H [facility] Rx#:[id number] Oral 870 240 Output: Urine 1300 Other: Voiding Method Urinal Urinal Urinal # Voids 1 - Exam GENERAL: The patient is alert and oriented x3, not in any acute distress. Well developed, well nourished. HEENT: Pupils are round and equally reacting to light. EOMI. No scleral icterus. No conjunctival pallor. Normocephalic, atraumatic. No pharyngeal erythema. No thyromegaly. CARDIOVASCULAR: S1 and S2 present. No murmurs, rubs, or gallops. PULMONARY: Chest is clear to auscultation, no wheezing or crackles. ABDOMEN: Soft, nontender, nondistended, normoactive bowel sounds. No palpable organomegaly. MUSCULOSKELETAL: No joint swelling or deformity. -EXTREMITIES: No cyanosis, clubbing. bilateral leg edema NEUROLOGICAL: Gross neurological examination did not reveal any focal deficits. SKIN: No rashes. - Labs CBC & Chem 7: 10/29/18 06:35 10/30/18 02:13 Labs: Abnormal Lab Results - Last 24 Hours (Table) 10/29/18 10/30/18 10/30/18 Range/Units 06:35 02:13 08:43 APTT 47.4 H 33.2 H (22.0-30.0) sec Sodium 134 L (137-145) mmol/L BUN 27 H (9-20) mg/dL Creatinine 1.46 H (0.66-1.25) mg/dL Glucose 342 H (74-99) mg/dL Assessment and Plan Assessment: Acute systolic CHF possible Ischemic cardiomyopathy Acute coronary syndrome, non-STEMI, status post stenting of LAD. Atrial fibrillation's with RVR, started on amiodarone essential hypertension Plan: This is a pleasant 48 this male who presents because of excessive leg swelling mostly due to acute systolic heart regular. Some ischemic elements. Cardiology consultation is appreciated. Labs and medication were reviewed.. Continue same treatment. Continue with symptomatic treatment. Resume home medication. Monitor lytes and vitals. DVT and GI prophylaxis. Further recommendations of the clinical course of the patient DVT prophylaxis: heparin GI Prophylaxis: Pepcid Prognosis is guarded
[2018-10-30 12:24] VITALS: BP 154/90; PULSE 57; RESP 20
--- NOTE | 2018-10-30 14:06 | P.PN ---
Subjective Progress Note Date: 10/30/18 This is a 48-year-old gentleman who has been experiencing increasing abdominal girth and distention and also some peripheral edema. He claims that all started about 2 weeks ago when he went to [place]. He was also having some palpitations. Denied any chest pain. He went to the walk-in clinic with several complaints. His blood pressure was found to be very high. Patient was referred to the emergency room. In the emergency room patient was found to have significant elevation of the blood pressure. He was treated with IV labetalol and also metoprolol. Cardiology consult is initiated. His monitor showed evidence of atrial fibrillation flutter with rapid ventricular response. His chest x-ray showed evidence of cardiomegaly and congestive heart failure. His proBNP is elevated. Clinically patient has JVD and probably ascites and peripheral edema. It appears that patient has evidence of systolic congestive heart failure which is acute. His EKG showed evidence of possible anteroseptal MA. Bedside echo [place] showed apical hypokinesia with severely impaired LV function with ejection fraction about 25-30%. It appears that most probably patient has ischemic cardiomyopathy, atrial fibrillation and CHF. Patient was initiated on IV amiodarone, and continued on IV diuretics. His blood pressure this morning 166/118 with a heart rate in the 70s, 99% on room air. White blood cell count 7, hemoglobin 14.5, platelet count 222. Sodium 138, potassium 3.6, BUN 35, creatinine 1.5. Patient has been diuresing, weight is essentially unchanged from yesterday. We will increase his dose of IV Lasix. We will also discontinue the SHAE inhibitor and start the patient on Entresto from Sunday. 10/27/2018 Patient was seen and examined this morning, overall is feeling significantly better. Denies any PND or orthopnea. Breathing is overall stable. Laboratory data from today, sodium 138, potassium 4.6, BUN 32, creatinine 1.4. We will gently hydrate the patient today, check creatinine in the morning and tentatively book for cardiac catheterization. Blood pressure today 178/107, we' ll increase the dose of Entresto. 10/30/2018 Patient was taken to the cardiac catheterization lab yesterday where he underwent angioplasty and stenting of the mid LAD. He was seen and examined this morning, feels well, denies any chest pain, no difficulty in breathing. Dr. Dotson did have a discussion with the patient this morning regarding possible cardioversion tomorrow, decision was made to discharge the patient home today on anticoagulation along with Plavix and baby aspirin, follow-up appointment with Dr. gil Schmidt in the office. Objective - Vital Signs Vital signs: Vital Signs Temp 97.4 F L 10/30/18 06:01 Pulse 57 L 10/30/18 12:24 Resp 20 10/30/18 12:24 BP 154/90 10/30/18 12:24 Pulse Ox 96 10/30/18 12:24 Intake & Output 10/29/18 10/30/18 10/30/18 18:59 06:59 18:59 Intake Total 1003.9 083.321 8027.094 Output Total 1300 1650 Balance -296.1 433.333 -220.906 Weight 109.9 kg Intake: IV 130 Intake, IV Titration 3.9 433.333 769.094 Amount Heparin Sod,Pork in 0.45% 3.9 NaCl 25,000 unit In 0.45 % NaCl 1 500ml.bag @ 20 mls/hr IV .Q24H [facility] Rx#: [id number] Heparin Sod,Pork in 0.45% 133.333 169.094 NaCl 25,000 unit In 0.45 % NaCl 1 500ml.bag @ 9. 058 UNITS/KG/HR 20 mls/hr IV .Q24H [facility] Rx#: [id number] Sodium Chloride 0.9% 1, 300 000 ml @ 20 mls/hr IV . Q24H [facility] Rx#:[id number] Sodium Chloride 0.9% 1, 600 000 ml @ 75 mls/hr IV . [id number] [facility] Rx#:[id number] Oral 870 660 Output: Urine 1300 1650 Other: Voiding Method Urinal Urinal Urinal # Voids 1 1 - Exam PHYSICAL EXAMINATION: GENERAL: 48-year-old gentleman in no acute distress at the time of my examination HEENT: Head is atraumatic, normocephalic. Pupils equal, round. Sclera anicteric. Conjunctiva are clear. Mucous membranes of the mouth are moist. Neck is supple. There is no elevated jugular venous pressure. No carotid bruit is heard. HEART EXAMINATION: Heart S1, S2 irregularly irregular . No murmur or gallop heard. CHEST EXAMINATION: Lungs clear to auscultation ABDOMEN: Soft, obese, distended, Bowel sounds are heard. No organomegaly noted. EXTREMITIES: 2+ peripheral pulses with no evidence of peripheral edema and no calf tenderness noted. Right radial site clean and dry, good distal pulse. NEUROLOGIC patient is awake, alert and oriented X 3 . - Labs CBC & Chem 7: 10/29/18 06:35 10/30/18 02:13 Labs: Abnormal Lab Results - Last 24 Hours (Table) 10/30/18 10/30/18 Range/Units 02:13 08:43 APTT 33.2 H (22.0-30.0) sec Sodium 134 L (137-145) mmol/L BUN 27 H (9-20) mg/dL Creatinine 1.46 H (0.66-1.25) mg/dL Glucose 342 H (74-99) mg/dL Assessment and Plan Plan: Assessment and plan #1 systolic congestive heart failure acute on chronic #2 ischemic cardiomyopathy #3 ACS #4 persistent atrial fibrillation #5 accelerated hypertension #6 stenting of the LAD Plan Cardiology's perspective, patient may be be discharged home today. He will be discharged home on a baby aspirin daily, Plavix 75 mg daily, Xarelto 15 mg daily , Coreg 25 mg one tablet by mouth twice a day, Lasix 40 mg daily, hydralazine 50 mg twice a day, Imdur 30 mg daily, Entresto 49/51 mg daily, Aldactone 25 mg daily and sublingual nitroglycerin as needed for chest pain. Follow-up appointment in the office with Dr. Agarwal post discharge. DNP note has been reviewed, I agree with a documented findings and plan of care. Patient was seen and examined.
[2018-10-30] MEDS ORDERED: RIVAROXABAN 15 MG TAB PO SCH (17:30)
[2018-10-30] MEDS ORDERED: FAMOTIDINE 20 MG/2 ML VIAL IV SCH (21:00)
== END 2018-10-30 16:13 | disposition home or self-care (01) | DRG 246 ==
LOC: EC 23:21 → 3SCARD 10-23 02:36
PROVIDERS: ADMIT Internal Medicine; ATTEND Internal Medicine
PROC: B2111ZZ Fluoroscopy of Multiple Coronary Arteries using Low Osmolar Contrast (ICD-10-PCS; 2018-10-28)
PROC: 4A023N7 Measurement of Cardiac Sampling and Pressure, Left Heart, Percutaneous Approach (ICD-10-PCS; principal; 2018-10-28 13:50)
PROC: 027034Z Dilation of Coronary Artery, One Artery with Drug-eluting Intraluminal Device, Percutaneous Approach (ICD-10-PCS; 2018-10-29)
DX: I13.0 Hypertensive heart and chronic kidney disease with heart failure and stage 1 through stage 4 chronic kidney disease, or unspecified chronic kidney disease (principal); I21.4 Non-ST elevation (NSTEMI) myocardial infarction; I50.23 Acute on chronic systolic (congestive) heart failure; I16.1 Hypertensive emergency; I48.1 Persistent atrial fibrillation; I48.3 Typical atrial flutter; R18.8 Other ascites; D72.829 Elevated white blood cell count, unspecified; I25.10 Atherosclerotic heart disease of native coronary artery without angina pectoris; Z87.891 Personal history of nicotine dependence; I25.5 Ischemic cardiomyopathy; I42.2 Other hypertrophic cardiomyopathy; N18.3 Chronic kidney disease, stage 3 (moderate); T50.2X5A Adverse effect of carbonic-anhydrase inhibitors, benzothiadiazides and other diuretics, initial encounter; Z79.82 Long term (current) use of aspirin; Z82.49 Family history of ischemic heart disease and other diseases of the circulatory system; Z83.3 Family history of diabetes mellitus
CPT/HCPCS: 36415; 71046; 71275; 80048; 80053; 80076; 80306; 81003; 82150; 82550; 82553; 83036; 83690; 83735; 83880; 84132; 84443; 84484; 85025; 85610; 85730; 93005; 93306; 93458; 96365; 96366; 96375; 96376; 99285; C1874

== ENCOUNTER → 2018-11-15 | Day surgery (SDC) | payer SELFPAY ==
[2018-11-13 09:54] VITALS: BMI 32.8
[~2018-11-15] MED LIST: AMIODARONE 200 MG TAB PO SCH; CARVEDILOL 12.5 MG TAB PO SCH; CLOPIDOGREL 75 MG TAB PO SCH; FUROSEMIDE 40 MG TAB PO SCH; LACTATED RINGERS 1,000 ML IV SCH; NITROGLYCERIN SL TABS 0.4 MG TAB SUBLINGUAL PRN; NON-FORMULARY DRUG (Rosuvastatin 20 MG) PO SCH; PROPOFOL 10 MG/ML 20 ML VIAL IV ONE; RIVAROXABAN 15 MG TAB PO SCH; SACUBITRIL/VALSARTAN 49 MG-51 MG TABLET PO SCH; SODIUM CHLORIDE 0.9% 1,000 ML IV ONE; SODIUM CHLORIDE 0.9% 1,000 ML IV SCH; SPIRONOLACTONE 25 MG TAB PO SCH; hydrALAZINE HCL 50 MG TAB PO SCH
[2018-11-15] MEDS: BENZOCAINE SPRAY 1 CAN MUCOUS MEM ONE ×2 (07:07→07:10)
[2018-11-15 07:42] VITALS: TEMP 97.3
[2018-11-15 07:48] VITALS: RESP 16
--- NOTE | 2018-11-15 07:53 | ECHOT ---
TRANSESOPHAGEAL ECHOCARDIOGRAM INDICATION: Atrial flutter. PROCEDURE: After explaining the procedure to the patient, its risks and THE complications, blood pressure, heart rate, O2 saturation was monitored. The throat was sprayed with Cetacaine. He received sedation per anesthesia department. The probe was with introduced esophagus without difficulty. Images were obtained. Following that , the probe was removed. There was no immediate complication. FINDINGS: Left atrial size is dilated. Left atrial appendage is normal. Left ventricular size is normal. There is evidence of global hypokinesis. Estimated ejection fraction 30 % to 35%. The aortic valve has calcification and there is a fusion of 2 cusp with preserved opening. The mitral valve appears to be normal. Tricuspid valve is normal. Descending thoracic aorta appears to be normal. There was no pericardial effusion. Contrast bubble study revealed no shunting across the interatrial septum. Doppler pulse wave and color Doppler obtained and revealed a mild mitral, aortic and tricuspid regurgitation. There was no shunting by color Doppler study. CONCLUSION: 1. Mild dilated left atrium with normal appearance left atrial appendage. 2. Normal left ventricular size with severe global hypokinesis. 3. Thickened aortic valve leaflets with partial fusion of 2 cusps. 4. Mild mitral, aortic and tricuspid regurgitation. 5. No shunting across the interatrial septum. 6. Normal appearance of the descending thoracic aorta. MMODL / IJN: [id number] / ELSY
--- NOTE | 2018-11-15 07:59 | CE ---
CARDIAC ELECTROPHYSIOLOGY REPORT CARDIOVERSION PROCEDURE NOTE: INDICATION: Atrial flutter. PROCEDURE: After explaining the procedure to the patient, its risks and the complications, blood pressure, heart rate, O2 saturation was monitored. The throat was sprayed with Cetacaine. He received sedation per anesthesia department, and after performing transesophageal echocardiogram, a synchronized biphasic 200 joule cardioversion was performed with worship of normal sinus rhythm. There was no immediate complication. HENRIETTA / CONRADON: [id number] /
[2018-11-15 08:51] VITALS: PULSE 69
[2018-11-15 08:52] VITALS: BP 136/78
== END | disposition home or self-care (01) ==
LOC: CATHCVL 06:02
PROVIDERS: ATTEND Internal Medicine Interventional Cardiology
DX: I48.3 Typical atrial flutter (principal); I07.1 Rheumatic tricuspid insufficiency; I70.0 Atherosclerosis of aorta; I25.10 Atherosclerotic heart disease of native coronary artery without angina pectoris; I10 Essential (primary) hypertension; I42.8 Other cardiomyopathies; E78.2 Mixed hyperlipidemia; Z87.891 Personal history of nicotine dependence; Z95.5 Presence of coronary angioplasty implant and graft; Z82.49 Family history of ischemic heart disease and other diseases of the circulatory system; Z79.01 Long term (current) use of anticoagulants; Z79.02 Long term (current) use of antithrombotics/antiplatelets; Z79.899 Other long term (current) drug therapy
CPT/HCPCS: 93312; 93320; 93325; 92960; J2704; 93005

== ENCOUNTER 2018-11-30 12:33 | Inpatient (IN) | payer OTHER ==
[2018-11-30] MEDS ORDERED: NITROGLYCERIN OINT 1 INCH/GM PACKET TOPICAL STA (12:57)
[2018-11-30] MEDS ORDERED: ASPIRIN 81 MG PO STA (12:57)
[2018-11-30] MEDS ORDERED: hydrALAZINE HCL 20 MG/ML 1 ML VIAL IVP STA (12:57)
--- NOTE | 2018-11-30 13:01 | ED ---
General Adult HPI - General Chief complaint: Chest Pain Stated complaint: High BP/Chest pain Time Seen by Provider: 11/30/18 12:49 Source: patient, RN notes reviewed Mode of arrival: ambulatory Limitations: no limitations - History of Present Illness Initial comments: Patient is a pleasant 48-year-old male presenting to the emergency Department with complaints of hypertension and chest discomfort. Onset of symptoms was around 1 hour ago. Patient was routinely check his blood pressure and found it to be high. Patient has been dealing with high blood pressure and cardiac issues recently. Patient did come in for high blood pressure couple months ago and did have a stent placed at that time. Shortly after this patient came in again and was found to be in atrial flutter and did receive cardioversion. Patient states chest discomfort has resolved at this time. Chest discomfort as described as sharp in the left anterior chest without radiation. No associated dyspnea or nausea or diaphoresis. No back pain. - Related Data Home Medications Medication Instructions Recorded Confirmed Furosemide [Lasix] 40 mg PO BID 11/13/18 11/30/18 Rosuvastatin [Crestor] 20 mg PO DAILY 11/13/18 11/30/18 Isosorbide Mononitrate ER [Imdur] 30 mg PO DAILY 11/30/18 11/30/18 Sacubitril/Valsartan [Entresto 49 1 tab PO BID 11/30/18 11/30/18 mg-51 mg Tablet] Previous Rx's Medication Instructions Recorded Carvedilol [Coreg*] 25 mg PO BID-W/MEALS #60 tab 10/30/18 Clopidogrel [Plavix] 75 mg PO DAILY #30 tab 10/30/18 Nitroglycerin Sl Tabs [Nitrostat] 0.4 mg SUBLINGUAL Q5M PRN #25 tab 10/30/18 Rivaroxaban [Xarelto] 15 mg PO W/SUPPER #30 tab 10/30/18 Spironolactone [Aldactone] 25 mg PO DAILY #30 tab 10/30/18 hydrALAZINE HCL [Apresoline] 50 mg PO BID #60 tab 10/30/18 Amiodarone [Cordarone] 200 mg PO BID #0 11/15/18 Allergies Allergy/AdvReac Type Severity Reaction Status Date / Time No Known Allergies Allergy Verified 11/30/18 13:37 Review of Systems ROS Statement: Those systems with pertinent positive or pertinent negative responses have been documented in the HPI. ROS Other: All systems not noted in ROS Statement are negative. Constitutional: Denies: fever Eyes: Denies: eye pain ENT: Denies: ear pain Respiratory: Denies: cough, dyspnea Cardiovascular: Reports: chest pain Endocrine: Denies: fatigue Gastrointestinal: Denies: abdominal pain Genitourinary: Denies: dysuria Musculoskeletal: Denies: back pain Skin: Denies: rash Neurological: Denies: weakness Past Medical History Past Medical History: Atrial Flutter, Heart Failure, GERD/Reflux, Hyperlipidemia , Hypertension Additional Past Medical History / Comment(s): Heart rhythm issue. Low BP over last 2 days, lightheaded. See Dr Dotson's H&P. History of Any Multi-Drug Resistant Organisms: None Reported Past Surgical History: Heart Catheterization With Stent Additional Past Anesthesia/Blood Transfusion Reaction / Comment(s): Pt has never had anesthesia/surgery. Date of Last Stent Placement:: 10/29/18 Past Psychological History: No Psychological Hx Reported Smoking Status: Former smoker Past Alcohol Use History: Rare Past Drug Use History: None Reported - Past Family History Father Family Medical History: Coronary Artery Disease (CAD), Diabetes Mellitus, Myocardial Infarction ([place]) Additional Family Medical History / Comment(s): Father has had MIs and his first TX was at the age of 48yrs. Mother Family Medical History: Diabetes Mellitus General Exam Limitations: no limitations General appearance: alert, in no apparent distress Head exam: Present: atraumatic Eye exam: Present: normal appearance, PERRL ENT exam: Present: normal oropharynx Neck exam: Present: normal inspection Respiratory exam: Present: normal lung sounds bilaterally. Absent: chest wall tenderness Cardiovascular Exam: Present: regular rate, normal rhythm Expanded Peripheral pulses: 2+: Radial (R), Radial (L), Posterior Tibialis (R), Posterior Tibialis (L) GI/Abdominal exam: Present: soft. Absent: distended, tenderness Extremities exam: Present: normal inspection. Absent: pedal edema, calf tenderness Neurological exam: Present: alert Psychiatric exam: Present: normal affect, normal mood Skin exam: Present: normal color Course Vital Signs 11/30/18 11/30/18 11/30/18 12:38 14:18 14:21 Temperature 98.4 F Pulse Rate 57 L 60 58 L Respiratory 18 18 18 Rate Blood Pressure 221/113 190/113 193/114 O2 Sat by Pulse 99 99 Oximetry - Reevaluation(s) Reevaluation #1: 11/30/18 13:04 Bilateral blood pressures done and are similar. EKG Findings - EKG Comments: EKG Findings:: Sinus bradycardia 59. For screening AV block with a MI of 240. QRS 122. QT 466. QTc 461. Right axis. Nonspecific intraventricular conduction delay. No acute ST change. Medical Decision Making - Medical Decision Making Patient reevaluated and resting comfortably in bed. Blood pressure 183/104. No discomfort at this time. Patient is updated on results and plan. Case discussed in detail with Dr. junior, covering for Dr. mccormack, who will admit. Cardiology will be placed on consult. - Lab Data Result diagrams: 11/30/18 13:08 11/30/18 13:08 Lab Results 11/30/18 11/30/18 11/30/18 Range/Units 13:08 13:08 13:08 WBC 6.2 (3.8-10.6) k/uL RBC 5.88 (4.30-5.90) m/uL Hgb 16.5 (13.0-17.5) gm/dL Hct 50.6 (39.0-53.0) % MCV 86.1 (80.0-100.0) fL MCH 28.0 (25.0-35.0) pg MCHC 32.5 (31.0-37.0) g/dL RDW 14.5 (11.5-15.5) % Plt Count 133 L (150-450) k/uL Neutrophils % 73 % Lymphocytes % 13 % Monocytes % 7 % Eosinophils % 5 % Basophils % 1 % Neutrophils # 4.5 (1.3-7.7) k/uL Lymphocytes # 0.8 L (1.0-4.8) k/uL Monocytes # 0.4 (0-1.0) k/uL Eosinophils # 0.3 (0-0.7) k/uL Basophils # 0.1 (0-0.2) k/uL PT (9.0-12.0) sec INR (<1.2) APTT (22.0-30.0) sec Sodium 136 L (137-145) mmol/L Potassium 4.8 (3.5-5.1) mmol/L Chloride 103 (98-107) mmol/L Carbon Dioxide 24 (22-30) mmol/L Anion Gap 9 mmol/L BUN 38 H (9-20) mg/dL Creatinine 1.25 (0.66-1.25) mg/dL Est GFR (CKD-EPI)AfAm 79 (>60 ml/min/1.73 sqM) Est GFR (CKD-EPI)NonAf 68 (>60 ml/min/1.73 sqM) Glucose 258 H (74-99) mg/dL Calcium 10.1 (8.4-10.2) mg/dL Magnesium 2.0 (1.6-2.3) mg/dL Total Bilirubin 0.8 (0.2-1.3) mg/dL AST 46 (17-59) U/L ALT 52 (21-72) U/L Alkaline Phosphatase 189 H (38-126) U/L Total Creatine Kinase 54 L (55-170) U/L CK-MB (CK-2) 1.9 (0.0-2.4) ng/mL CK-MB (CK-2) Rel Index 3.5 Troponin I 0.024 (0.000-0.034) ng/mL Total Protein 7.3 (6.3-8.2) g/dL Albumin 4.4 (3.5-5.0) g/dL 11/30/18 Range/Units 13:08 WBC (3.8-10.6) k/uL RBC (4.30-5.90) m/uL Hgb (13.0-17.5) gm/dL Hct (39.0-53.0) % MCV (80.0-100.0) fL MCH (25.0-35.0) pg MCHC (31.0-37.0) g/dL RDW (11.5-15.5) % Plt Count (150-450) k/uL Neutrophils % % Lymphocytes % % Monocytes % % Eosinophils % % Basophils % % Neutrophils # (1.3-7.7) k/uL Lymphocytes # (1.0-4.8) k/uL Monocytes # (0-1.0) k/uL Eosinophils # (0-0.7) k/uL Basophils # (0-0.2) k/uL PT 14.3 H (9.0-12.0) sec INR 1.4 H (<1.2) APTT 36.2 H (22.0-30.0) sec Sodium (137-145) mmol/L Potassium (3.5-5.1) mmol/L Chloride (98-107) mmol/L Carbon Dioxide (22-30) mmol/L Anion Gap mmol/L BUN (9-20) mg/dL Creatinine (0.66-1.25) mg/dL Est GFR (CKD-EPI)AfAm (>60 ml/min/1.73 sqM) Est GFR (CKD-EPI)NonAf (>60 ml/min/1.73 sqM) Glucose (74-99) mg/dL Calcium (8.4-10.2) mg/dL Magnesium (1.6-2.3) mg/dL Total Bilirubin (0.2-1.3) mg/dL AST (17-59) U/L ALT (21-72) U/L Alkaline Phosphatase (38-126) U/L Total Creatine Kinase (55-170) U/L CK-MB (CK-2) (0.0-2.4) ng/mL CK-MB (CK-2) Rel Index Troponin I (0.000-0.034) ng/mL Total Protein (6.3-8.2) g/dL Albumin (3.5-5.0) g/dL - Radiology Data Radiology results: image reviewed (Chest x-ray shows no acute process) Disposition Clinical Impression: Chest pain, Hypertensive urgency Disposition: ADMITTED IP TO THIS HOSP Is patient prescribed a controlled substance at d/c from ED?: No Referrals: Kerry Mccormack MD [Primary Care Provider] - 1-2 days Decision Time: 14:56
[2018-11-30 13:27] LABS: Basophils # (A) 0.1 k/uL (0-0.2); Basophils % (A) 1 %; Eosinophils # (A) 0.3 k/uL (0-0.7); Eosinophils % (A) 5 %; HCT 50.6 % (39.0-53.0); HGB 16.5 gm/dL (13.0-17.5); Lymphocytes # (A) 0.8 k/uL (1.0-4.8); Lymphocytes % (A) 13 %; MCHC 32.5 g/dL (31.0-37.0); MCV 86.1 fL (80.0-100.0); Mean Platelet Volume 8.1; Monocytes # (A) 0.4 k/uL (0-1.0); Monocytes % (A) 7 %; Neutrophils # (A) 4.5 k/uL (1.3-7.7); Neutrophils % (A) 73 %; Platelet Count 133 k/uL (150-450); RBC 5.88 m/uL (4.30-5.90); RDW 14.5 % (11.5-15.5); WBC 6.2 k/uL (3.8-10.6)
[2018-11-30 13:36] LABS: INR 1.4 (<1.2); Partial Thromboplastin Time 36.2 sec (22.0-30.0); Prothrombin Time 14.3 sec (9.0-12.0)
[2018-11-30 13:39] LABS: Albumin 4.4 g/dL (3.5-5.0); Calcium 10.1 mg/dL (8.4-10.2); Potassium 4.8 mmol/L (3.5-5.1); Total Bilirubin 0.8 mg/dL (0.2-1.3); Total Protein 7.3 g/dL (6.3-8.2)
[2018-11-30 14:03] LABS: Creatine Kinase MB 1.9 ng/mL (0.0-2.4); Troponin I 0.024 ng/mL (0.000-0.034)
--- NOTE | 2018-11-30 14:13 | XR ---
EXAMINATION TYPE: XR chest 2V DATE OF EXAM: 11/30/2018 HISTORY: Chest Pain. REFERENCE: Previous study dated 10/26/2018. FINDINGS: The lungs are clear. Pleural space are clear. The heart is not enlarged. IMPRESSION: NO ACUTE CARDIOPULMONARY ABNORMALITY.
[2018-11-30] MEDS ORDERED: ENALAPRILAT 1.25 MG/ML 1 ML VIAL IVP PRN (14:55)
[2018-11-30] MEDS ORDERED: ENALAPRILAT 1.25 MG/ML 1 ML VIAL IVP STA (14:55)
[2018-11-30] MEDS ORDERED: NITROGLYCERIN SL TABS 0.4 MG TAB SUBLINGUAL PRN (14:57)
[2018-11-30] MEDS ORDERED: hydrALAZINE HCL 20 MG/ML 1 ML VIAL IVP PRN (15:00)
[2018-11-30] MEDS: FUROSEMIDE 40 MG TAB PO SCH (16:56)
[2018-11-30] MEDS: CARVEDILOL 12.5 MG TAB PO SCH (16:56)
[2018-11-30] MEDS: NITROGLYCERIN OINT 1 INCH/GM PACKET TOPICAL SCH ×2 (16:56→22:13)
[2018-11-30] MEDS: RIVAROXABAN 15 MG TAB PO SCH (16:56)
[2018-11-30] MEDS: AMIODARONE 200 MG TAB PO SCH (20:30)
[2018-11-30] MEDS: hydrALAZINE HCL 50 MG TAB PO SCH (20:30)
[2018-11-30 20:36] LABS: Glucose,Whole Blood 228 mg/dL (75-99)
[2018-11-30 21:12] LABS: Creatine Kinase MB 1.8 ng/mL (0.0-2.4); Troponin I 0.018 ng/mL (0.000-0.034)
[2018-11-30] MEDS ORDERED: TEMAZEPAM 15 MG CAP PO PRN (22:14)
[2018-11-30] MEDS ORDERED: ALPRAZolam 0.25 MG TAB PO PRN (22:14)
[2018-11-30] MEDS ORDERED: ACETAMINOPHEN TAB 500 MG TAB PO PRN (22:14)
[2018-11-30] MEDS ORDERED: HYDROcodone/APAP 5-325MG 1 EACH TAB PO PRN (22:14)
[2018-12-01 01:37] LABS: Creatine Kinase 49 U/L (55-170)
[2018-12-01 01:50] LABS: Creatine Kinase MB 1.5 ng/mL (0.0-2.4); Troponin I <0.012 ng/mL (0.000-0.034)
[2018-12-01 05:50] LABS: Glucose,Whole Blood 227 mg/dL (75-99)
[2018-12-01] MEDS: PANTOPRAZOLE 40 MG TABLET PO SCH (06:35)
[2018-12-01] MEDS: CARVEDILOL 12.5 MG TAB PO SCH ×2 (06:35→16:36)
[2018-12-01] MEDS: FUROSEMIDE 40 MG TAB PO SCH ×2 (06:36→16:35)
[2018-12-01] MEDS: INSULIN ASPART 100 UNIT/ML 1 ML 10 ML VIAL SQ SCH ×4 (06:36→21:01)
[2018-12-01 06:56] LABS: Basophils # (A) 0.1 k/uL (0-0.2); Basophils % (A) 1 %; Eosinophils # (A) 0.2 k/uL (0-0.7); Eosinophils % (A) 3 %; HCT 47.4 % (39.0-53.0); HGB 14.6 gm/dL (13.0-17.5); Lymphocytes % (A) 14 %; MCH 27.1 pg (25.0-35.0); MCHC 30.8 g/dL (31.0-37.0); Mean Platelet Volume 7.8; Monocytes # (A) 0.5 k/uL (0-1.0); Monocytes % (A) 7 %; Neutrophils # (A) 5.4 k/uL (1.3-7.7); Neutrophils % (A) 73 %; Platelet Count 161 k/uL (150-450); RBC 5.39 m/uL (4.30-5.90); RDW 14.6 % (11.5-15.5); WBC 7.5 k/uL (3.8-10.6)
[2018-12-01 07:06] LABS: Calcium 9.8 mg/dL (8.4-10.2); Potassium 4.6 mmol/L (3.5-5.1)
[2018-12-01] MEDS: CLOPIDOGREL 75 MG TAB PO SCH (08:23)
[2018-12-01] MEDS: SPIRONOLACTONE 25 MG TAB PO SCH (08:23)
[2018-12-01] MEDS: hydrALAZINE HCL 50 MG TAB PO SCH ×2 (08:23→20:49)
[2018-12-01] MEDS: AMIODARONE 200 MG TAB PO SCH ×2 (08:24→20:49)
[2018-12-01] MEDS ORDERED: ASPIRIN 325 MG TAB PO SCH (09:00)
[2018-12-01] MEDS ORDERED: ATORVASTATIN 40 MG TAB PO SCH (09:00)
[2018-12-01] MEDS ORDERED: ISOSORBIDE MONONITRATE ER 30 MG TAB.ER.24H PO SCH (09:00)
--- NOTE | 2018-12-01 09:11 | P.CRDCN ---
History of Present Illness Consult date: 12/01/18 Requesting physician: Pradip E Sheet Consult reason: chest pain, hypertension Chief complaint: Chest pain, HTN History of present illness: This is a 48-year-old gentleman who follows with Dr. Dotson in the office. He has a known history of coronary artery disease, underwent stenting of the LAD in October 2018, patient also has paroxysmal atrial flutter, underwent TAMIKO and cardioversion in October, family history of premature coronary artery disease, hypertension, hyperlipidemia, ischemic cardiomyopathy with documented ejection fraction of 20-25%. Patient presents to the hospital with symptoms of left upper chest discomfort which she describes as sharp stabbing pain, he denies any chest pressure or heaviness, no difficulty in breathing. He states that he was checking his blood pressure up to 20 times a day, noticing that it went up as high as 200 systolic and for these reasons he came to the emergency room for further evaluation and treatment. Chest x-ray on admission did not reveal any acute cardiopulmonary abnormality. EKG shows a sinus bradycardia with first-degree AV block, no acute changes noted. Blood pressure on arrival here 221/110, heart rate in the 50s to 60s, 99% on room air. Blood pressure this morning 128/60 with a heart rate in the 70s, 97% on room air. White blood cell count is normal, hemoglobin 14.6, platelet count 161. Sodium 133, potassium 4.6, BUN 35, creatinine 1.3. Likely glucose in the range of 225. Magnesium 2.0, troponins 0.0-4, 0.018, 0.012. Cholesterol 156, triglycerides 178, LDL 88, HDL 32. At the time of my examination this morning, she denies any chest discomfort, breathing is stable. Past Medical History Past Medical History: Atrial Flutter, Heart Failure, GERD/Reflux, Hyperlipidemia , Hypertension Additional Past Medical History / Comment(s): Heart rhythm issue. Low BP over last 2 days, lightheaded. See Dr Dotson's H&P. History of Any Multi-Drug Resistant Organisms: None Reported Past Surgical History: Heart Catheterization With Stent Additional Past Anesthesia/Blood Transfusion Reaction / Comment(s): Pt has never had anesthesia/surgery. Date of Last Stent Placement:: 10/29/18 Past Psychological History: No Psychological Hx Reported Additional Psychological History / Comment(s): Pt resides with his spouse. He is unemployed. He drives. Smoking Status: Former smoker Past Alcohol Use History: Rare Additional Past Alcohol Use History / Comment(s): Started smoking in 1994 and quit in 2004. Past Drug Use History: None Reported - Past Family History Father Family Medical History: Coronary Artery Disease (CAD), Diabetes Mellitus, Myocardial Infarction (ND) Additional Family Medical History / Comment(s): Father has had MIs and his first ND was at the age of 48yrs. Mother Family Medical History: Diabetes Mellitus Medications and Allergies Home Medications Medication Instructions Recorded Confirmed Type Carvedilol [Coreg*] 25 mg PO BID-W/MEALS #60 tab 10/30/18 11/30/18 Rx Clopidogrel [Plavix] 75 mg PO DAILY #30 tab 10/30/18 11/30/18 Rx Nitroglycerin Sl Tabs [Nitrostat] 0.4 mg SUBLINGUAL Q5M PRN #25 tab 10/30/1804/13 Rx Rivaroxaban [Xarelto] 15 mg PO W/SUPPER #30 tab 10/30/18 11/30/18 Rx Spironolactone [Aldactone] 25 mg PO DAILY #30 tab 10/30/18 11/30/18 Rx hydrALAZINE HCL [Apresoline] 50 mg PO BID #60 tab 10/30/18 11/30/18 Rx Furosemide [Lasix] 40 mg PO BID 11/13/18 11/30/18 History Rosuvastatin [Crestor] 20 mg PO DAILY 11/13/18 11/30/18 History Amiodarone [Cordarone] 200 mg PO BID #0 11/15/18 11/30/18 Rx Isosorbide Mononitrate ER [Imdur] 30 mg PO DAILY 11/30/18 11/30/18 History Sacubitril/Valsartan [Entresto 49 1 tab PO BID 11/30/18 11/30/18 History mg-51 mg Tablet] Allergies Allergy/AdvReac Type Severity Reaction Status Date / Time No Known Allergies Allergy Verified 11/30/18 13:37 Physical Exam Vitals: Vital Signs Temp Pulse Pulse Resp BP BP Pulse Ox 12/01/18 08:00 98.9 F 74 18 129/68 97 12/01/18 04:00 99.4 F 69 18 131/73 96 12/01/18 00:00 63 18 129/62 96 11/30/18 20:00 98.2 F 62 18 139/73 96 11/30/18 16:21 97.4 F L 11/30/18 16:00 98.6 F 59 L 59 L 18 125/84 136/81 100 11/30/18 15:55 60 18 134/84 96 11/30/18 15:20 61 18 142/84 98 11/30/18 15:09 59 L 18 150/89 97 11/30/18 15:00 58 L 15 158/91 98 11/30/18 14:40 60 18 158/91 97 11/30/18 14:21 58 L 18 193/114 11/30/18 14:18 60 18 190/113 99 11/30/18 12:38 98.4 F 57 L 18 221/113 99 Intake and Output 11/30/18 12/01/18 12/01/18 22:59 06:59 14:59 Intake Total 222 960 240 Balance 222 960 240 Intake: Oral 222 960 240 Other: # Voids 2 Weight 112.037 kg 111.8 kg PHYSICAL EXAMINATION: GENERAL: 40-year-old gentleman in no acute distress at the time of my examination HEENT: Head is atraumatic, normocephalic. Pupils equal, round. Sclera anicteric. Conjunctiva are clear. Mucous membranes of the mouth are moist. Neck is supple. There is no elevated jugular venous pressure. No carotid bruit is heard. HEART EXAMINATION: Heart S1, S2 systolic murmur is heard. CHEST EXAMINATION: Lungs are clear to auscultation and precussion. No chest wall tenderness is noted on palpation or with deep breathing. ABDOMEN: Soft, nontender. Bowel sounds are heard. No organomegaly noted. EXTREMITIES: 2+ peripheral pulses with no evidence of peripheral edema and no calf tenderness noted. NEUROLOGIC patient is awake, alert and oriented 3 . . Results 12/01/18 06:07 12/01/18 06:07 Cardiac Enzymes 11/30/18 11/30/18 11/30/18 Range/Units 13:08 13:08 19:33 AST 46 (17-59) U/L CK-MB (CK-2) 1.9 1.8 (0.0-2.4) ng/mL Troponin I 0.024 0.018 (0.000-0.034) ng/mL 12/01/18 Range/Units 00:56 AST (17-59) U/L CK-MB (CK-2) 1.5 (0.0-2.4) ng/mL Troponin I <0.012 (0.000-0.034) ng/mL Coagulation 11/30/18 Range/Units 13:08 PT 14.3 H (9.0-12.0) sec APTT 36.2 H (22.0-30.0) sec Lipids 12/01/18 Range/Units 06:07 Triglycerides 178 H (<150) mg/dL Cholesterol 156 (<200) mg/dL HDL Cholesterol 32 L (40-60) mg/dL CBC 11/30/18 12/01/18 Range/Units 13:08 06:07 WBC 6.2 7.5 (3.8-10.6) k/uL RBC 5.88 5.39 (4.30-5.90) m/uL Hgb 16.5 14.6 (13.0-17.5) gm/dL Hct 50.6 47.4 (39.0-53.0) % Plt Count 133 L 161 (150-450) k/uL Comprehensive Metabolic Panel 11/30/18 12/01/18 Range/Units 13:08 06:07 Sodium 136 L 133 L (137-145) mmol/L Potassium 4.8 4.6 (3.5-5.1) mmol/L Chloride 103 101 (98-107) mmol/L Carbon Dioxide 24 23 (22-30) mmol/L BUN 38 H 35 H (9-20) mg/dL Creatinine 1.25 1.30 H (0.66-1.25) mg/dL Glucose 258 H 225 H (74-99) mg/dL Calcium 10.1 9.8 (8.4-10.2) mg/dL AST 46 (17-59) U/L ALT 52 (21-72) U/L Alkaline Phosphatase 189 H (38-126) U/L Total Protein 7.3 (6.3-8.2) g/dL Albumin 4.4 (3.5-5.0) g/dL Current Medications Generic Name Dose Route Start Last Admin Trade Name Freq PRN Reason Stop Dose Admin Acetaminophen 500 mg 11/30/18 22:14 Tylenol Tab PO Q6HR PRN Fever and/ or Pain Hydrocodone Bitart/Acetaminophen 1 each 11/30/18 22:14 [place] 5-325 PO Q6HR PRN Pain Alprazolam 0.25 mg 11/30/18 22:14 Xanax PO TID PRN Anxiety Amiodarone HCl 200 mg 11/30/18 21:00 12/01/18 08:24 Cordarone PO 200 mg BID HAIDER Administration Aspirin 325 mg 12/01/18 09:00 12/01/18 08:23 Aspirin PO 325 mg DAILY HAIDER Administration Atorvastatin Calcium 40 mg 12/01/18 09:00 12/01/18 08:24 Lipitor PO 40 mg DAILY HAIDER Administration Carvedilol 25 mg 11/30/18 17:30 12/01/18 06:35 Coreg PO 25 mg BID-W/MEALS HAIDER Administration Clopidogrel Bisulfate 75 mg 12/01/18 09:00 12/01/18 08:23 Plavix PO 75 mg DAILY HAIDER Administration Furosemide 40 mg 11/30/18 16:00 12/01/18 06:36 Lasix PO 40 mg BID@0700,1600 HAIDER Administration Hydralazine HCl 50 mg 11/30/18 21:00 12/01/18 08:23 Apresoline PO 50 mg BID HAIDER Administration Hydralazine HCl 10 mg 11/30/18 15:00 Apresoline IVP Q6HR PRN Blood Pressure - High Insulin Aspart 0 unit 12/01/18 07:30 12/01/18 06:36 Novolog SQ 5 unit ACHS HAIDER Administration Protocol Isosorbide Mononitrate 30 mg 12/01/18 09:00 12/01/18 08:34 Imdur PO Not Given DAILY [facility] Nitroglycerin 0.4 mg 11/30/18 14:57 Nitrostat SUBLINGUAL Q5M PRN Chest Pain Pantoprazole Sodium 40 mg 12/01/18 07:30 12/01/18 06:35 Protonix PO 40 mg AC-BRKFST HAIDER Administration Rivaroxaban 15 mg 11/30/18 17:30 11/30/18 16:56 Xarelto PO 15 mg W/SUPPER HAIDER Administration Sacubitril/Valsartan 1 each 12/02/18 09:00 Entresto 49 Mg-51 Mg Tablet PO BID [facility] Sodium Chloride 10 ml 11/30/18 21:00 12/01/18 08:24 Saline Flush IV Not Given BID HAIDER Spironolactone 25 mg 12/01/18 09:00 12/01/18 08:23 Aldactone PO 25 mg DAILY HAIDER Administration Temazepam 15 mg 11/30/18 22:14 Restoril PO HS PRN Insomnia Intake and Output 11/30/18 12/01/18 12/01/18 22:59 06:59 14:59 Intake Total 222 960 240 Balance 222 960 240 Intake: Oral 222 960 240 Other: # Voids 2 Weight 112.037 kg 111.8 kg 12/01/18 06:07 12/01/18 06:07 EKG Interpretations (text) EKG on admission shows a sinus bradycardia with first-degree AV block, no acute changes noted. Assessment and Plan Plan: Assessment and plan #1 chest pain, atypical for acute coronary syndrome, EKG shows a sinus bradycardia with first-degree AV block, no acute changes noted. Troponins 0.0-4 , 0.018, 0.012. #2 hypertensive urgency #3 hyperlipidemia #4 coronary artery disease with LAD stenting in October 2018 #5 paroxysmal atrial flutter, status post TAMIKO and cardioversion last month #6 nicotine dependence history #7 family history of premature coronary artery disease #8 ischemic cardiomyopathy with documented ejection fraction of 20-25% Plan We will repeat an echocardiogram with Doppler study. Discontinue aspirin . Increase Entresto 97 mg/103 mg twice a day for more optimal blood pressure control. Continue Plavix, Lipitor, increase Imdur to 60 mg , Xarelto, Aldactone. Patient has also been educated regarding his risk for sudden cardiac , LifeVest was discussed with the patient. Further recommendations to follow. DNP note has been reviewed, I agree with a documented findings and plan of care. Patient was seen and examined.
--- NOTE | 2018-12-01 09:19 | HP ---
HISTORY AND PHYSICAL DATE OF SERVICE: 11/30/2018 CHIEF COMPLAINT: Chest pain. HISTORY OF PRESENT ILLNESS: This 42-year-old gentleman with a past medical history of multiple medical problems, atrial flutter, history of CHF, GERD, hypertension, hyperlipidemia, ischemic cardiomyopathy, being followed by Dr. Calderon in the outpatient setting, was complaining of chest pain. The patient had hypertension, blood pressure elevated to 213/113 and the patient also had chest discomfort and pain was felt on the left side and the patient came to [facility] and was admitted to the hospital for further evaluation and treatment at this time. The patient on multiple medications. There is no history of fever, rigors. No history of headache, loss of consciousness, seizures. Blood sugars found to be elevated. Hemoglobin also was found to be elevated, but the patient is not taking any medications for the same at this time. There is no history of fever, rigors. No history of headache, loss of consciousness, seizures. PAST MEDICAL HISTORY: Ischemic cardiomyopathy, history of atrial flutter, history of CHF, hypertension, hyperlipidemia, history of CAD stent. MEDICATIONS: Prior to admission include: 1. Aldactone 25 mg p.o. b.i.d. 2. Entresto 49/51 p.o. b.i.d. 3. Crestor 20 mg p.o. daily. 4. Xarelto 50 mg at supper. 5. Nitrostat 0.4 sublingual. 6. Imdur 30 mg daily. 7. Apresoline 50 mg b.i.d. 8. Lasix 40 mg b.i.d. 9. Plavix 75 mg. 10.Coreg 25 mg with meals. 11.Cordarone 200 mg p.o. b.i.d. ALLERGIES: None. FAMILY HISTORY: History of CAD, myocardial infarction, diabetes in the family. SOCIAL HISTORY: Previous history of smoking. Occasional alcohol intake. REVIEW OF SYSTEMS: ENT: No diminished hearing. No diminished vision. CARDIOVASCULAR: As mentioned earlier. RESPIRATORY: As mentioned earlier. GI no nausea or vomiting. : No dysuria. NERVOUS SYSTEM: No numbness or weakness. ALLERGY/IMMUNOLOGY: No asthma or hayfever. MUSCULOSKELETAL: As mentioned earlier. HEMATOLOGY/ONCOLOGY: No history of anemia. ENDOCRINE: No history of diabetes or hypothyroidism. CONSTITUTIONAL: As mentioned earlier. Dermatology: Negative. Rheumatology: Negative. Psychiatry: As mentioned earlier. PHYSICAL EXAM: GENERAL: The patient is alert, oriented x3. VITAL SIGNS: Pulse 59, blood pressure 130/80, respiration 18, temperature 98.2. Pulse ox 100 percent on room air. HEENT: Conjunctivae normal. NECK: No jugular venous distention. No carotid bruit. CARDIOVASCULAR: S1, S2. RESPIRATIONS: Breath sounds diminished in the bases. Scattered rhonchi and crackles. ABDOMEN: Soft, nontender. No mass palpable. Legs no edema. No swelling. NERVOUS SYSTEM: Higher functions as mentioned. Moves all four extremities. lymphatics: No lymph nodes palpable in the neck, axillae or groin. SKIN: No ulcer, no rash. No bleeding. LAB STUDIES: WBC 6.2, hemoglobin 16.5, platelets 138. INR 1.4. Sodium 136. ASSESSMENT: 1. Chest pain possible unstable angina. 2. History of coronary artery disease, stent history. 3. Rule out diabetes mellitus. 4. History of ischemic cardiomyopathy. 5. History of congestive heart failure with chronic systolic dysfunction ejection fraction 20 to 25%. 6. History of gastroesophageal reflux disease. 7. Hypertension. 8. Hyperlipidemia. 9. Remote history of nicotine dependence. RECOMMENDATIONS AND DISCUSSION: I recommend to continue current medications, management and symptomatic treatment. Unstable angina protocol. Cardiology consultation. I would also recommend Accu-Cheks a.c. and insulin scale also. Dietary evaluation. Guarded prognosis because of multiple complex medical issues. Further recommendations to follow. See orders for details. A copy of dictation being forwarded to Dr. Calderon who is the primary care physician. MMJOSE RAMONL / CONRADON: [id number] /
[2018-12-01] MEDS ORDERED: hydrALAZINE HCL 50 MG TAB PO ONE (10:00)
[2018-12-01 11:06] LABS: Glucose,Whole Blood 240 mg/dL (75-99)
[2018-12-01 16:30] LABS: Glucose,Whole Blood 261 mg/dL (75-99)
[2018-12-01] MEDS: RIVAROXABAN 15 MG TAB PO SCH (16:35)
[2018-12-01 20:58] LABS: Glucose,Whole Blood 145 mg/dL (75-99)
[2018-12-02 05:38] LABS: Glucose,Whole Blood 177 mg/dL (75-99)
--- NOTE | 2018-12-02 05:55 | PN ---
PROGRESS NOTE DATE OF SERVICE: 12/01/2018 This 48-year-old gentleman admitted with chest pain also had significant coronary artery disease. Cardiology is evaluating the patient for possible LifeVest at this time/AICD. There is no chest pain or no palpitations. No fever. PHYSICAL EXAMINATION: On exam, alert and oriented. Pulse 62, blood pressure 152/84, respirations 16, temperature 98.7, pulse ox 100% on room air. HEENT: Conjunctivae normal. NECK: No jugular venous distention. CARDIOVASCULAR: S1, S2 muffled. RESPIRATORY: Breath sounds diminished at the bases. A few scattered rhonchi. ABDOMEN: Soft. NERVOUS SYSTEM: No focal deficits. LABS: CBC within normal limits. Creatinine is 1.3. Sodium is 133. ASSESSMENT: 1. Chest pain, possible unstable angina. 2. History of coronary artery disease, stent history. 3. History of ischemic cardiomyopathy. 4. History of congestive heart failure with chronic systolic dysfunction, ejection fraction 20% to 25%. 5. History of gastroesophageal reflux disease. 6. Hypertension. 7. Hyperlipidemia. 8. Remote history of nicotine dependence. 9. Possible diabetes mellitus type 2. RECOMMENDATIONS AND DISCUSSION: In this 48-year-old gentleman who presented with multiple medical problems, will monitor the patient closely. Continue the current medications, continue symptomatic treatment. Otherwise closely follow with Cardiology. Monitor blood sugars closely. Hemoglobin A1c is not available yet. Otherwise, will continue to monitor. Further recommendations to follow. Prognosis guarded. MMODL / IJN: [id number] /
[2018-12-02] MEDS: FUROSEMIDE 40 MG TAB PO SCH (06:41)
[2018-12-02] MEDS: PANTOPRAZOLE 40 MG TABLET PO SCH (06:41)
[2018-12-02] MEDS: INSULIN ASPART 100 UNIT/ML 1 ML 10 ML VIAL SQ SCH ×2 (06:42→12:03)
[2018-12-02] MEDS: CARVEDILOL 12.5 MG TAB PO SCH (06:42)
[2018-12-02 06:54] LABS: Potassium 4.4 mmol/L (3.5-5.1)
[2018-12-02 07:17] LABS: Basophils # (A) 0.1 k/uL (0-0.2); Basophils % (A) 1 %; Eosinophils # (A) 0.2 k/uL (0-0.7); Eosinophils % (A) 2 %; HCT 47.2 % (39.0-53.0); HGB 14.8 gm/dL (13.0-17.5); Lymphocytes % (A) 11 %; MCH 26.9 pg (25.0-35.0); MCHC 31.4 g/dL (31.0-37.0); MCV 85.7 fL (80.0-100.0); Mean Platelet Volume 7.9; Monocytes # (A) 0.7 k/uL (0-1.0); Monocytes % (A) 8 %; Neutrophils # (A) 6.6 k/uL (1.3-7.7); Neutrophils % (A) 76 %; Platelet Count 170 k/uL (150-450); RDW 14.7 % (11.5-15.5); WBC 8.7 k/uL (3.8-10.6)
[2018-12-02] MEDS ORDERED: SACUBITRIL/VALSARTAN 97 MG-103 MG TABLET PO SCH (09:00)
[2018-12-02] MEDS ORDERED: ATORVASTATIN 80 MG TAB PO SCH (09:00)
[2018-12-02] MEDS ORDERED: SACUBITRIL/VALSARTAN 49 MG-51 MG TABLET PO SCH (09:00)
[2018-12-02] MEDS: AMIODARONE 200 MG TAB PO SCH (09:31)
[2018-12-02] MEDS: CLOPIDOGREL 75 MG TAB PO SCH (09:31)
[2018-12-02] MEDS: hydrALAZINE HCL 50 MG TAB PO SCH (09:31)
[2018-12-02] MEDS: SPIRONOLACTONE 25 MG TAB PO SCH (09:31)
[2018-12-02] MEDS: ISOSORBIDE MONONITRATE ER 60 MG TAB.ER.24H PO SCH ×2 (09:31→09:39)
[2018-12-02 09:49] VITALS: PULSE 61; TEMP 98.8
--- NOTE | 2018-12-02 10:42 | P.PN ---
Subjective Progress Note Date: 12/02/18 This is a 48-year-old gentleman who follows with Dr. Dotson in the office. He has a known history of coronary artery disease, underwent stenting of the LAD in October 2018, patient also has paroxysmal atrial flutter, underwent TAMIKO and cardioversion in October, family history of premature coronary artery disease, hypertension, hyperlipidemia, ischemic cardiomyopathy with documented ejection fraction of 20-25%. Patient presents to the hospital with symptoms of left upper chest discomfort which she describes as sharp stabbing pain, he denies any chest pressure or heaviness, no difficulty in breathing. He states that he was checking his blood pressure up to 20 times a day, noticing that it went up as high as 200 systolic and for these reasons he came to the emergency room for further evaluation and treatment. Chest x-ray on admission did not reveal any acute cardiopulmonary abnormality. EKG shows a sinus bradycardia with first-degree AV block, no acute changes noted. Blood pressure on arrival here 221/110, heart rate in the 50s to 60s, 99% on room air. Blood pressure this morning 128/60 with a heart rate in the 70s, 97% on room air. White blood cell count is normal, hemoglobin 14.6, platelet count 161. Sodium 133, potassium 4.6, BUN 35, creatinine 1.3. Likely glucose in the range of 225. Magnesium 2.0, troponins 0.0-4, 0.018, 0.012. Cholesterol 156, triglycerides 178, LDL 88, HDL 32. At the time of my examination this morning, she denies any chest discomfort, breathing is stable. 12/02/2018 Patient seen and examined this morning, blood pressure under much better control overall today. Blood pressure this morning 126/70 with a heart rate in the 60s, 97% on room air. Patient did have a repeat echocardiogram with Doppler study performed this morning, it has not yet been reviewed and dictated , however it was briefly reviewed by Dr. Morgan and appears that the patient's LV function is normal. From our perspective, patient may be able to be discharged home once cleared by primary, he has a follow-up appointment with Dr. Dotson in the office on Sunday which she has been advised to keep. Objective - Vital Signs Vital signs: Vital Signs Temp 98.8 F 12/02/18 08:40 Pulse 61 12/02/18 08:40 Resp 17 12/02/18 08:40 BP 126/69 12/02/18 08:40 Pulse Ox 97 12/02/18 08:40 Intake & Output 12/01/18 12/02/18 12/02/18 18:59 06:59 18:59 Intake Total 240 540 240 Output Total 500 Balance 240 540 -260 Weight 110.2 kg Intake: Oral 240 540 240 Output: Urine 500 Other: # Voids 1 - Exam PHYSICAL EXAMINATION: GENERAL: 40-year-old gentleman in no acute distress at the time of my examination HEENT: Head is atraumatic, normocephalic. Pupils equal, round. Sclera anicteric. Conjunctiva are clear. Mucous membranes of the mouth are moist. Neck is supple. There is no elevated jugular venous pressure. No carotid bruit is heard. HEART EXAMINATION: Heart S1, S2 systolic murmur is heard. CHEST EXAMINATION: Lungs are clear to auscultation and precussion. No chest wall tenderness is noted on palpation or with deep breathing. ABDOMEN: Soft, nontender. Bowel sounds are heard. No organomegaly noted. EXTREMITIES: 2+ peripheral pulses with no evidence of peripheral edema and no calf tenderness noted. NEUROLOGIC patient is awake, alert and oriented 3 . - Labs CBC & Chem 7: 12/02/18 05:39 12/02/18 05:39 Labs: Abnormal Lab Results - Last 24 Hours (Table) 12/01/18 12/01/18 12/01/18 Range/Units 11:03 16:18 20:57 Sodium (137-145) mmol/L BUN (9-20) mg/dL Creatinine (0.66-1.25) mg/dL Glucose (74-99) mg/dL POC Glucose (mg/dL) 240 H 261 H 145 H (75-99) mg/dL 12/02/18 12/02/18 Range/Units 05:37 05:39 Sodium 135 L (137-145) mmol/L BUN 30 H (9-20) mg/dL Creatinine 1.56 H (0.66-1.25) mg/dL Glucose 186 H (74-99) mg/dL POC Glucose (mg/dL) 177 H (75-99) mg/dL Assessment and Plan Plan: Assessment and plan #1 chest pain, atypical for acute coronary syndrome, EKG shows a sinus bradycardia with first-degree AV block, no acute changes noted. Troponins 0.0-4 , 0.018, 0.012. #2 hypertensive urgency #3 hyperlipidemia #4 coronary artery disease with LAD stenting in October 2018 #5 paroxysmal atrial flutter, status post TAMIKO and cardioversion last month #6 nicotine dependence history #7 family history of premature coronary artery disease #8 ischemic cardiomyopathy with documented ejection fraction of 20-25% Plan Echocardiogram with Doppler study will be reviewed and dictated by Dr. Ivana Holman this morning, it appears that the patient's LV function has normalized. He may be able to be discharged home from cardiology's perspective. He has a follow-up appointment in the office with Dr. Dotson on Sunday which she has been advised to keep. DNP note has been reviewed, I agree with a documented findings and plan of care. Patient was seen and examined.
[2018-12-02 10:55] LABS: Hemoglobin A1C 11.8 % (4.0-6.0)
[2018-12-02 11:12] LABS: Glucose,Whole Blood 195 mg/dL (75-99)
[2018-12-02 12:57] VITALS: BP 118/64; RESP 18
--- NOTE | 2018-12-02 13:49 | ECHOF ---
Referral Reason:LV function MEASUREMENTS -------- HEIGHT: 182.9 cm WEIGHT: 109.8 kg BP: RVIDd: 3.8 cm (< 3.3) IVSd: 1.7 cm (0.6 - 1.1) LVIDd: 4.1 cm (3.9 - 5.3) LVPWd: 2.1 cm (0.6 - 1.1) IVSs: 2.4 cm LVIDs: 2.3 cm LVPWs: 2.5 cm AV maxP.73 mmHg AV meanP.86 mmHg FINDINGS -------- Sinus rhythm. Limited Study The left ventricular size is normal. There is severe concentric left ventricular hypertrophy. Ove rall left ventricular systolic function is normal with, an EF between 55 - 60 %. The right ventricle is mild to moderately enlarged. Aortic valve is trileaflet and is moderately thickened. There is moderate aortic valve sclerosis wi thout significant stenosis. Peak/mean gradient across the Aortic Valve is 18.73mmHg / 11.86mmHg. The ascending aorta is dilated measuring up to 4.6 CM There is a trivial pericardial effusion present. CONCLUSIONS -------- 1. Sinus rhythm. 2. Limited Study 3. The left ventricular size is normal. 4. There is severe concentric left ventricular hypertrophy. 5. Overall left ventricular systolic function is normal with, an EF between 55 - 60 %. 6. The right ventricle is mild to moderately enlarged. 7. Aortic valve is trileaflet and is moderately thickened. 8. Peak/mean gradient across the Aortic Valve is 18.73mmHg / 11.86mmHg. 9. The ascending aorta is dilated measuring up to 4.6 CM. 10. There is a trivial pericardial effusion present. PRODUCT INFO SPECIALIST: Viviana Benz [facility]
[2018-12-02 14:39] VITALS: BMI 33.8
--- NOTE | 2018-12-03 06:48 | DS ---
DISCHARGE SUMMARY DATE OF SERVICE: 12/02/2018 FINAL DIAGNOSES: 1. Chest pain, possible unstable angina. 2. History of coronary artery disease, stent history. 3. History of ischemic cardiomyopathy. 4. History of congestive heart failure with chronic systolic dysfunction, ejection fraction 20% to 25% improved to 50% to 60%. 5. History of gastroesophageal reflux disease. 6. Hypertension. 7. Hyperlipidemia. 8. Remote history of nicotine dependence. 9. Possible diabetes type 2. DISCHARGE DISPOSITION: The patient will be discharged in stable condition with guarded prognosis. HISTORY OF PRESENT ILLNESS: This 48-year-old gentleman presented with multiple medical problems. Cardiology saw the patient closely and myocardial infarction ruled out. The patient improved significantly. The patient discharged in stable condition with guarded prognosis. As mentioned earlier, ejection fraction showed significant improvement and the medication continued. Accu-Cheks found to be elevated. Recommend Accu-Cheks a.c. and at bedtime and continue to follow up with Dr. Calderon. On exam, vital signs are stable. CARDIOVASCULAR: S1, S2, muffled. ABDOMEN: Soft. NERVOUS SYSTEM: No focal deficits. DISCHARGE ADVICE: 1. Follow up with Dr. Calderon in 2 to 3 days. 2. Follow up with Cardiology as recommended. Medications are as follows: 1. Lasix 40 mg p.o. b.i.d. 2. Tylenol 500 q.6h p.r.n. 3. Cordarone 200 mg p.o. b.i.d. 4. Lipitor 80 mg p.o. daily. 5. Coreg 25 mg p.o. b.i.d. 6. Plavix 75 mg p.o. daily. 7. Apresoline 100 mg p.o. b.i.d. 8. Imdur 60 mg p.o. daily. 9. Nitrostat 0.4 sublingual p.r.n. 10.Xarelto 15 mg p.o. at supper. 11.Entresto 1 tablet p.o. b.i.d. 12.Aldactone 25 mg p.o. daily. Please note the Entresto dose is increased. Once again, the patient will be discharged in a stable condition with guarded prognosis. MMODL / IJN: [id number] /
== END 2018-12-02 16:35 | disposition home or self-care (01) | DRG 303 ==
LOC: EC 12:33 → 3SCARD 14:57
PROVIDERS: ADMIT Internal Medicine; ATTEND Internal Medicine
DX: I25.110 Atherosclerotic heart disease of native coronary artery with unstable angina pectoris (principal); I50.22 Chronic systolic (congestive) heart failure; I48.92 Unspecified atrial flutter; I11.0 Hypertensive heart disease with heart failure; Z95.5 Presence of coronary angioplasty implant and graft; Z87.891 Personal history of nicotine dependence; E78.5 Hyperlipidemia, unspecified; I16.0 Hypertensive urgency; I25.5 Ischemic cardiomyopathy; I44.0 Atrioventricular block, first degree; K21.9 Gastro-esophageal reflux disease without esophagitis; Z79.01 Long term (current) use of anticoagulants; Z79.02 Long term (current) use of antithrombotics/antiplatelets; Z79.899 Other long term (current) drug therapy; Z82.49 Family history of ischemic heart disease and other diseases of the circulatory system; Z83.3 Family history of diabetes mellitus; R00.1 Bradycardia, unspecified; Z56.0 Unemployment, unspecified; E11.9 Type 2 diabetes mellitus without complications
CPT/HCPCS: 36415; 71046; 80048; 80053; 80061; 82550; 82553; 83036; 83735; 84484; 85025; 85610; 85730; 93005; 93308; 96374; 96375; 99285

== ENCOUNTER → 2018-12-13 | Outpatient (CLI) | payer OTHER ==
[2018-12-13 19:46] LABS: Albumin 4.4 g/dL (3.80-4.90); Albumin/Globulin Ratio 1.91 (1.20-2.10); Anion Gap 10.7 mmol/L (4.00-12.00); Calcium 10.2 mg/dL (8.7-10.3); Carbon Dioxide 25.3 mmol/L (21.6-31.8); Globulin 2.3 g/dL (1.6-3.3); Potassium 4.8 mmol/L (3.5-5.5); Total Bilirubin 0.5 mg/dL (0.2-1.2); Total Protein 6.7 g/dL (6.2-8.2)
== END | disposition home or self-care (01) ==
LOC: LABWHC1 11:06
PROVIDERS: ATTEND Internal Medicine Interventional Cardiology
DX: E78.2 Mixed hyperlipidemia (principal); I48.3 Typical atrial flutter
CPT/HCPCS: 36415; 80053; 80061; 84443

== ENCOUNTER → 2021-07-01 | Outpatient (CLI) | payer BC ==
--- NOTE | 2021-07-01 14:21 | CT ---
EXAMINATION TYPE: CT angio abd aorta w/Runoff DATE OF EXAM: 07/01/2021 COMPARISON: HISTORY: Lower extremity occlusion, AAA CT DLP: 1957.6 mGycm, Automated Exposure Control for Dose Reduction was Utilized. CONTRAST: CT scan of the abdomen and pelvis is performed with oral and without and with IV Contrast, patient in jected with 125 mL of Isovue 370. FINDINGS: LUNG BASES: Heart is enlarged. Coronary artery calcification noted.. LIVER/GB: No significant abnormality is appreciated. PANCREAS: No significant abnormality is seen. SPLEEN: No significant abnormality is seen. ADRENALS: No significant abnormality is seen. KIDNEYS: No significant abnormality is seen. BOWEL: No significant abnormality is seen. LYMPH NODES: No greater than 1cm abdominal or pelvic lymph nodes are appreciated. OSSEOUS STRUCTURES: Multilevel degenerative disc disease most marked at L5-S1. OTHER: There is a 6 cm area of irregular soft tissue attenuation adjacent to or related to the spleen or pancreatic tail. Requires additional evaluation MRI. Masses in the differential diagnosis.. Aorta is of normal caliber with atherosclerotic changes seen. No sizable aneurysm. Visualized mesente lesley vasculature has a normal appearance. Atherosclerotic change of the proximal iliac arteries. Proxi mal renal arteries appear to be patent bilaterally with accessory renal artery suspected on the right . Ectasia of the iliac vasculature with mild atherosclerotic changes but no significant stenosis. Inter nal iliac arteries demonstrate mild to moderate disease in the right and mild disease on the left are a external iliac arteries demonstrate mild atherosclerotic changes. Common femoral artery demonstrates mild less than 50% atherosclerotic changes bilaterally greater on the right. There is bilateral occlusion of the origins of the superficial femoral arteries bilaterall y. Incidental note is made of marked atrophy of the medial compartment of the musculature of the left leg. See significant enhancement of the popliteal artery bilaterally. Infrapopliteal vasculature is believed to be diminutive in size and visualized at the level of the upper calf. Portions of the post erior tibial artery are seen to the level of the distal calf on the left and to the level of the ankl e on the right. Definitive enhancement of the peroneal and anterior tibial artery is not definitely i dentified. Dedicated arteriogram recommended. IMPRESSION: 1. 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 Limited infrapoplite al enhancement. Given limitation of the exam recommend dedicated arteriogram. 2. 6 cm irregular soft tissue density in the left upper quadrant. This is seen adjacent to the pancre atic tail and spleen. Malignant neoplasm in the differential diagnosis. Recommend MRI.
== END | disposition home or self-care (01) ==
LOC: RADCTMAIN 11:50
PROVIDERS: ATTEND Surgery Vascular Surgery
DX: I74.3 Embolism and thrombosis of arteries of the lower extremities (principal); I71.4 Abdominal aortic aneurysm, without rupture
CPT/HCPCS: 82565; 84520; 75635; 36415; Q9967

== ENCOUNTER 2022-12-21 05:45 | Day surgery (SDC) | payer BC ==
[2022-12-18 13:36] VITALS: BMI 39.7
[2022-12-21] MEDS ORDERED: LACTATED RINGERS 1,000 ML IV SCH (05:53)
[2022-12-21] MEDS ORDERED: MIDAZOLAM 2 MG/2 ML VIAL IV PRN (05:53)
[2022-12-21] MEDS ORDERED: DEXAMETHASONE SOD PHOSPHATE 4 MG/ML 1 ML VIAL IV ONE (05:53)
[2022-12-21] MEDS ORDERED: ONDANSETRON 4 MG/2 ML VIAL IVP ONE (05:53)
[2022-12-21] MEDS ORDERED: SODIUM CHLORIDE 0.9% 1,000 ML IV SCH (05:53)
[2022-12-21] MEDS ORDERED: HYDROmorphone 0.5 MG/0.5 ML SYRINGE IVP PRN (07:00)
[2022-12-21 07:01] LABS: Albumin 4.1 g/dL (3.5-5.0); Bilirubin, Delta 0.4 mg/dL (0.0-0.2); Bilirubin,Unconjugated 0.2 mg/dL (0.0-1.1); Total Bilirubin 0.6 mg/dL (0.2-1.3); Total Protein 6.7 g/dL (6.3-8.2)
[2022-12-21] MEDS ORDERED: LIDOCAINE 2% INJ 20 MG/ML (2 ML VIAL) ONE (07:27)
[2022-12-21] MEDS ORDERED: HYDROmorphone (PF) 1 MG/ML ONE (07:27)
[2022-12-21] MEDS ORDERED: PROPOFOL 10 MG/ML 20 ML VIAL IV ONE (07:27)
[2022-12-21] MEDS ORDERED: fentaNYL (PF) 50 MCG/ML 2 ML AMP ONE (07:27)
[2022-12-21] MEDS ORDERED: SUCCINYLCHOLINE CHLORIDE 200 MG/10 ML VIAL IV ONE (07:27)
[2022-12-21] MEDS ORDERED: MIDAZOLAM 2 MG/2 ML VIAL ONE (07:27)
[2022-12-21] MEDS ORDERED: GLYCOPYRROLATE 0.2 MG/ML 2 ML VIAL ONE (07:27)
[2022-12-21] MEDS ORDERED: ONDANSETRON 4 MG/2 ML VIAL ONE (07:27)
[2022-12-21] MEDS ORDERED: ROCURONIUM 10 MG/ML (5 ML VIAL) IV ONE (07:27)
[2022-12-21] MEDS ORDERED: NEOSTIGMINE 1 MG/ML 10 ML VIAL ONE (07:27)
[2022-12-21] MEDS ORDERED: HEPARIN SODIUM (1,000 UNIT/ML) 1,000 UNIT in SODIUM CHLORIDE 0.9% 1,000 ML IRRIGATION ONE (07:36)
[2022-12-21] MEDS ORDERED: LIDOCAINE 1% INJ 10MG/ML (30 ML VIAL-PF) SQ ONE (08:08)
[2022-12-21] MEDS ORDERED: ISOPROTERENOL 250 MCG/1.25 ML SYR IV ONE (09:41)
[2022-12-21] MEDS ORDERED: DEXAMETHASONE SOD PHOSPHATE 4 MG/ML 1 ML VIAL IVP ONE (10:09)
[2022-12-21 10:23] LABS: Glucose,Whole Blood 131 mg/dL (70-110)
[2022-12-21] MEDS ORDERED: ACETAMINOPHEN IV (For NPO) 1,000 MG in EMPTY BAG 1 BAG IVPB ONE (10:31)
[2022-12-21] MEDS ORDERED: ACETAMINOPHEN TAB 325 MG TAB PO PRN (10:31)
--- NOTE | 2022-12-21 10:44 | P.EPPROC ---
- EP Procedure Note Electrophysiology Procedure Note: Diagnosis Symptomatic typical atrial flutter Associated tachycardia mediated cardiomyopathy Amiodarone discontinued over 5 weeks back Results Successful ablation for typical atrial flutter Bidirectional block across the cavo tricuspid isthmus with differential pacing Normalization of LV function in sinus rhythm, on intracardiac echo Pericardial thickening with a small old effusion at the base of the LV on intracardiac echo Plan Continue Xarelto and other cardiac medications Details Patient was brought to the EP lab in a fasting state. Written informed consent was obtained prior to the procedure. General anesthesia provided. Venous accesses were obtained via the femoral veins. Diagnostic mapping and ablation cath was replaced. Intracardiac echo catheter was placed Baseline measurements Sinus cycle length 1015 ms, AZ interval 206 ms, QRS 114 ms and QT interval 490 ms AH 101 ms and HV interval 76 ms Sinus node recovery times at 605 100 ms were 1712 and 1802 ms. Corresponding current sinus recovery times a prolonged AV node Wenckebach block was then found 90 ms the baseline state High-dose Isuprel started No inducible arrhythmias on Isuprel AV node Wenckebach block improved to 280 ms 3-D anatomical mapping performed. Intracardiac echo Cavo tricuspid isthmus defined. Tricuspid annulus and eustachian ridge defined RV function normal LV function normal Thickened pericardium over the left ventricle with this very small old effusion at the base of the LV This was not evident over the right ventricle 3-D electro-anatomic mapping performed across the cavo tricuspid isthmus A complete anatomic RF line of block was made This was interrogated with differential pacing and with split potentials across the line during pacing maneuvers Bidirectional block confirmed Long split potentials confirmed Isthmus conduction time close to 200 ms WAS removed. Venous accesses secured and closed with Vascade device Patient transferred to the procedure well without any acute complications
--- NOTE | 2022-12-21 10:46 | P.PRLE ---
RE: Tigre Obrien Dear Dr. 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 Fisher as before Thank you for entrusting me with the care of the patient Warm regards Sincerely Eddi Tapia
--- NOTE | 2022-12-21 10:52 | P.HPCAR ---
History of Present Illness This is Dr. Tapia dictating an H/P on this patient The patient was interviewed and examined IMPRESSION / ASSESSMENT: Typical atrial flutter with RVR Associated tachycardia mediated cardiomyopathy Associated congestive heart failure Initially treated with oral amiodarone which has been discontinued since october Hypertension Coronary artery disease status post cardiac stenting Morbid obesity PLAN: EP study and atrial flutter ablation Continue anticoagulation and antihypertensive therapy HPI Patient is doing a lot better in sinus rhythm. He was previously in atrial flutter with RVR which are provoked cardio myopathy and congestive heart failure. He was initially treated with oral amiodarone which she has dis continued for about 5 weeks or so He has known coronary artery disease with stenting to the mid LAD He has severe LV dysfunction during atrial flutter In sinus rhythm he is first-degree AV block He has a history of hypertension ROS: No fever chills or rigors, no cough, phlegm or expectoration, no nausea, vomiting or diarrhea, no hematuria, dysuria, no musculoskeletal complaints, no strokes or seizures, no skin lesions. EXAMINATION: Afebrile pulse rate in the 60s blood pressure 125/62 mmHg Breath sounds are reduced bilaterally but no rhonchi no crackles Heart sounds are normal Left groin has scarring with the frenulum. He's had vascular surgery previously No lower extremity edema Increased BMI of greater than 40 REVIEW OF LABS, ECG & MEDICAL DATA TSH 3.8 Alkaline phosphatase 150, mildly elevated AST and ALT are normal Bilirubin is normal Patient was previously on amiodarone Physical Exam Vitals: Vital Signs Temp Pulse Pulse Resp BP Pulse Ox 12/21/22 10:49 64 16 124/63 97 12/21/22 10:37 62 16 125/62 96 12/21/22 10:24 64 16 127/60 91 L 12/21/22 10:02 97 F L 69 16 135/68 94 L 12/21/22 06:53 98.1 F 58 L 16 179/86 95 Intake and Output 12/20/22 12/21/22 12/21/22 22:59 06:59 14:59 Intake Total 50 1341 Balance 50 1341 Intake: IV 50 1341 Other: Weight 131.5 kg Past Medical History Past Medical History: Atrial Flutter, Heart Failure, Diabetes Mellitus, Deep Vein Thrombosis (DVT), GERD/Reflux, Hyperlipidemia, Hypertension Additional Past Medical History / Comment(s): Heart rhythm issue. States has a lot of scar tissue in left groin area. History of Any Multi-Drug Resistant Organisms: None Reported Past Surgical History: Heart Catheterization, Heart Catheterization With Stent Additional Past Surgical History / Comment(s): Tibial bypass - left leg. Past Anesthesia/Blood Transfusion Reactions: No Reported Reaction, Motion Sickness Additional Past Anesthesia/Blood Transfusion Reaction / Comment(s): Pt has never had anesthesia/surgery. Date of Last Stent Placement:: 10/29/18 Past Psychological History: No Psychological Hx Reported Smoking Status: Former smoker Past Alcohol Use History: Rare Additional Past Alcohol Use History / Comment(s): Started smoking in 1994 and quit in 2004. Past Drug Use History: Marijuana Additional Drug Use History / Comment(s): THC use once. - Past Family History Father Family Medical History: Coronary Artery Disease (CAD), Diabetes Mellitus, My ocardial Infarction (MO) Additional Family Medical History / Comment(s): Father has had MIs and his first MO was at the age of 48yrs. Mother Family Medical History: Diabetes Mellitus Physical Examination Vital Signs Temp Pulse Pulse Resp BP Pulse Ox 12/21/22 10:49 64 16 124/63 97 12/21/22 10:37 62 16 125/62 96 12/21/22 10:24 64 16 127/60 91 L 12/21/22 10:02 97 F L 69 16 135/68 94 L 12/21/22 06:53 98.1 F 58 L 16 179/86 95 Intake and Output 12/20/22 12/21/22 12/21/22 22:59 06:59 14:59 Intake Total 50 1341 Balance 50 1341 Intake: IV 50 1341 Other: Weight 131.5 kg Results Cardiac Enzymes 12/21/22 Range/Units 06:25 AST 34 (17-59) U/L Comprehensive Metabolic Panel 12/21/22 Range/Units 06:25 Unconjugated Bilirubin 0.2 (0.0-1.1) mg/dL AST 34 (17-59) U/L ALT 38 (4-49) U/L Alkaline Phosphatase 150 H (38-126) U/L Total Protein 6.7 (6.3-8.2) g/dL Albumin 4.1 (3.5-5.0) g/dL Current Medications Generic Name Dose Route Start Last Admin Trade Name Freq PRN Reason Stop Dose Admin Acetaminophen 650 mg 12/21/22 10:31 Acetaminophen Tab 325 Mg Tab PO Q6HR PRN Mild Pain (Scale 1 to 3) Amlodipine Besylate 10 mg 12/22/22 09:00 Amlodipine 10 Mg Tab PO DAILY [facility] Atorvastatin Calcium 80 mg 12/22/22 09:00 Atorvastatin 80 Mg Tab PO DAILY [facility] Clopidogrel Bisulfate 75 mg 12/22/22 09:00 Clopidogrel 75 Mg Tab PO DAILY [facility] Dapagliflozin 5 mg 12/22/22 09:00 Dapagliflozin Propanediol 5 Mg Tablet PO DAILY [facility] Ezetimibe 10 mg 12/22/22 09:00 Ezetimibe 10 Mg Tab PO DAILY [facility] Famotidine 20 mg 12/22/22 09:00 Famotidine 20 Mg Tab PO DAILY [facility] Furosemide 40 mg 12/21/22 16:00 Furosemide 40 Mg Tab PO BID@0900,1600 [facility] Hydralazine HCl 50 mg 12/21/22 16:00 Hydralazine Hcl 50 Mg Tab PO TID [facility] Hydromorphone HCl 0.5 mg 12/21/22 07:00 Hydromorphone 0.5 Mg/0.5 Ml Syringe IVP 12/21/22 23:00 Q5M PRN Phase 1 or 2 - Pain Control Sodium Chloride 1,000 mls @ 50 mls/hr 12/21/22 05:53 12/21/22 06:25 Saline 0.9% IV 01/20/23 05:54 950 mls .Q20H HAIDER Administration Lactated Ringer's 1,000 mls @ 20 mls/hr 12/21/22 05:53 Lactated Ringers IV 01/20/23 05:54 .Q24H [facility] Insulin Aspart 11 unit 12/21/22 12:30 Insulin Aspart (Novolog) 100 Unit/Ml Vial SQ AC-TID [facility] Insulin Detemir 17 unit 12/21/22 21:00 Insulin Detemir (Levemir) 100 Unit/Ml Syr SQ HS [facility] Losartan Potassium 100 mg 12/22/22 09:00 Losartan 50 Mg Tab PO DAILY [facility] Metoprolol Tartrate 50 mg 12/21/22 21:00 Metoprolol Tartrate 50 Mg Tab PO BID [facility] Rivaroxaban 20 mg 12/21/22 17:30 Rivaroxaban 20 Mg Tab PO W/SUPPER HAIDER Protocol Sodium Chloride 12 ml 12/21/22 10:31 Sodium Chloride 0.9% Flush 10 Ml Syringe IV Q12HR PRN Line Flush Intake and Output 12/20/22 12/21/22 12/21/22 22:59 06:59 14:59 Intake Total 50 1341 Balance 50 1341 Intake: IV 50 1341 Other: Weight 131.5 kg
[2022-12-21 11:50] LABS: Glucose,Whole Blood 170 mg/dL (70-110)
[2022-12-21] MEDS: INSULIN ASPART (NovoLOG) 100 UNIT/ML VIAL SQ SCH ×2 (13:49→18:20)
[2022-12-21 15:00] VITALS: BP 149/76; PULSE 72; RESP 20; TEMP 98
[2022-12-21] MEDS ORDERED: hydrALAZINE HCL 50 MG TAB PO SCH (16:00)
[2022-12-21] MEDS ORDERED: FUROSEMIDE 40 MG TAB PO SCH (16:00)
[2022-12-21] MEDS ORDERED: RIVAROXABAN 20 MG TAB PO SCH (17:30)
[2022-12-21 18:13] LABS: Glucose,Whole Blood 175 mg/dL (70-110)
[2022-12-21] MEDS ORDERED: METOPROLOL TARTRATE 50 MG TAB PO SCH (21:00)
[2022-12-21] MEDS ORDERED: INSULIN DETEMIR (LEVEMIR) 100 UNIT/ML SYR SQ SCH (21:00)
[2022-12-22] MEDS ORDERED: amLODIPine 10 MG TAB PO SCH (09:00)
[2022-12-22] MEDS ORDERED: FAMOTIDINE 20 MG TAB PO SCH (09:00)
[2022-12-22] MEDS ORDERED: DAPAGLIFLOZIN PROPANEDIOL 5 MG TABLET PO SCH (09:00)
[2022-12-22] MEDS ORDERED: CLOPIDOGREL 75 MG TAB PO SCH (09:00)
[2022-12-22] MEDS ORDERED: EZETIMIBE 10 MG TAB PO SCH (09:00)
[2022-12-22] MEDS ORDERED: ATORVASTATIN 80 MG TAB PO SCH (09:00)
[2022-12-22] MEDS ORDERED: LOSARTAN 50 MG TAB PO SCH (09:00)
== END 2022-12-21 19:13 | disposition home or self-care (01) ==
LOC: CATHEP 05:45 → 6NMEDSUR 09:37 → CATHEP 19:13
PROVIDERS: ATTEND Internal Medicine Clinical Cardiac Electrophysiology
DX: I48.3 Typical atrial flutter (principal); I42.9 Cardiomyopathy, unspecified; I44.0 Atrioventricular block, first degree; I45.10 Unspecified right bundle-branch block; Z79.01 Long term (current) use of anticoagulants; I31.39 Other pericardial effusion (noninflammatory); I11.0 Hypertensive heart disease with heart failure; I50.9 Heart failure, unspecified; I25.10 Atherosclerotic heart disease of native coronary artery without angina pectoris; Z95.5 Presence of coronary angioplasty implant and graft; E66.01 Morbid (severe) obesity due to excess calories; Z68.41 Body mass index [BMI] 40.0-44.9, adult; Z79.899 Other long term (current) drug therapy; Z86.718 Personal history of other venous thrombosis and embolism; E78.5 Hyperlipidemia, unspecified; K21.9 Gastro-esophageal reflux disease without esophagitis; Z87.891 Personal history of nicotine dependence; F10.20 Alcohol dependence, uncomplicated; F12.20 Cannabis dependence, uncomplicated; Z83.3 Family history of diabetes mellitus; Z82.49 Family history of ischemic heart disease and other diseases of the circulatory system; Z79.84 Long term (current) use of oral hypoglycemic drugs; Z79.4 Long term (current) use of insulin
CPT/HCPCS: 93662; 93653; 80076; 84443; C1894; C1769 ×2; C1760; C1730; C1759; C1893; C1732; J2250; J0330; J1100; J2710; J2405; J2001 ×2; J3010; J1644; J1170; J0131; J2704

== ENCOUNTER → 2023-08-13 | Outpatient (CLI) | payer BC ==
[2023-08-13 21:30] LABS: HCT 53.3 % (39.6-50.0); HGB 17.7 d/dL (13.0-17.0); MCH 29.5 pg (27.0-32.0); MCHC 33.2 d/dL (32.0-37.0); MCV 88.7 FL (80.0-97.0); Mean Platelet Volume 11.7 FL (9.5-12.2); NRBC Per 100 WBC 0 X 10*3/uL (0.00-0.01); Platelet Count 253 X 10*3/uL (140-440); RBC 6.01 X 10*6/uL (4.40-5.60); RDW 14.1 % (11.5-14.5); WBC 8.84 X 10*3/uL (4.50-10.00)
[2023-08-13 21:47] LABS: Blood Urea Nitrogen 24.8 mg/dL (9.0-27.0); Carbon Dioxide 23.9 mmol/L (21.6-31.8); Chloride 104 mmol/L (96-109); Potassium 4.3 mmol/L (3.5-5.5); Sodium 138 mmol/L (135-145)
== END | disposition home or self-care (01) ==
LOC: LABPAT 14:56
PROVIDERS: ATTEND Internal Medicine
DX: Z01.812 Encounter for preprocedural laboratory examination (principal); I73.9 Peripheral vascular disease, unspecified
CPT/HCPCS: 80051; 82565; 84520; 85027

== ENCOUNTER 2023-10-26 09:11 | Day surgery (SDC) | payer BC ==
[~2023-10-26 09:11] MED LIST changes: -AMIODARONE 200 MG TAB PO SCH; -CARVEDILOL 12.5 MG TAB PO SCH; -CLOPIDOGREL 75 MG TAB PO SCH; -FUROSEMIDE 40 MG TAB PO SCH; +LIDOCAINE 1% (10MG/ML) FOR IV START INTRADERMA PRN; -NITROGLYCERIN SL TABS 0.4 MG TAB SUBLINGUAL PRN; -NON-FORMULARY DRUG (Rosuvastatin 20 MG) PO SCH; -PROPOFOL 10 MG/ML 20 ML VIAL IV ONE; -RIVAROXABAN 15 MG TAB PO SCH; -SACUBITRIL/VALSARTAN 49 MG-51 MG TABLET PO SCH; -SODIUM CHLORIDE 0.9% 1,000 ML IV ONE; -SODIUM CHLORIDE 0.9% 1,000 ML IV SCH; -SPIRONOLACTONE 25 MG TAB PO SCH; -hydrALAZINE HCL 50 MG TAB PO SCH
[2023-10-26 09:48] LABS: Glucose,Whole Blood 127 mg/dL (70-110)
[2023-10-26 09:54] VITALS: TEMP 98.3
[2023-10-26] MEDS ORDERED: LABETALOL SYRINGE 5 MG/ML (4 ML SYR) IVP ONE (10:05)
[2023-10-26] MEDS ORDERED: PROPOFOL 10 MG/ML 20 ML VIAL IV ONE (10:31)
--- NOTE | 2023-10-26 10:51 | P.PCN ---
Date of Procedure: 10/26/23 Procedure(s) Performed: BRIEF HISTORY: Patient is a 53-year-old pleasant white male scheduled for an elective colonoscopy as a part of screening for colon cancer. PROCEDURE PERFORMED: Colonoscopy with biopsy and snare polyp rectum he and tattooing with Nayana ink. PREOPERATIVE DIAGNOSIS: Screening for colon cancer. IV sedation per Anesthesia. PROCEDURE: After informed consent was obtained, the patient, was brought into the endoscopy unit. IV sedation was administered by Anesthesia under continuous monitoring. Digital rectal examination was normal. Initially the Olympus CF-160 flexible video colonoscope was then inserted in the rectum, gradually advanced into the cecum without any difficulty. Careful examination was performed as the scope was gradually being withdrawn. Ileocecal valve and the appendiceal orifice were visualized and appeared normal. Prep was excellent. Mucosa of the cecum, ascending colon, normal. The transverse colon there was a 7 mm polyp that was removed by cold snare polypectomy. In the proximal descending colon there was a 3 mm polyp he would by cold snare polypectomy. In the distal descending colon at 45 cm from the anal was there was a 4 cm polypoid submucosal lesion identified and multiple biopsies were done from this area. The lesion appeared somewhat hard in consistency but unlike a lipoma. Hence tattooing was performed with Nayana ink. Rest of the descending colon, sigmoid colon, and rectum appeared normal. in the rectum there was a 7 mm polyp removed by snare polypectomy. Retroflexion was performed in the rectum and no lesions were seen. The patient tolerated the procedure well. IMPRESSION: 7 mm transverse colon polyp status post cold snare polypectomy 3 mm proximal descending colon polyp status post cold snare polypectomy 4 cm polypoid submucosal lesion at 45 cm from the anal verge located in the distal descending colon status post multiple biopsies for by tattooing with Nayana ink 7 mm rectal polyp status post polyp RECOMMENDATIONS: Findings of this examination were discussed with the patient as well as his family.. he was advised to follow with the biopsy results. He'll be seen in office in one week. In the meantime we'll obtain CT of abdomen and pelvis to evaluate this further.
[2023-10-26] MEDS ORDERED: hydrALAZINE HCL 20 MG/ML 1 ML VIAL ONE (11:32)
[2023-10-26] MEDS ORDERED: hydrALAZINE HCL 20 MG/ML 1 ML VIAL IVP ONE (11:34)
[2023-10-26 11:44] VITALS: RESP 18
[2023-10-26 13:31] VITALS: BP 152/74; PULSE 73
== END 2023-10-26 12:38 | disposition home or self-care (01) ==
LOC: ORWHC2ENDO 09:11
PROVIDERS: ATTEND Internal Medicine Gastroenterology
DX: Z12.11 Encounter for screening for malignant neoplasm of colon (principal); D12.3 Benign neoplasm of transverse colon; I11.0 Hypertensive heart disease with heart failure; E11.9 Type 2 diabetes mellitus without complications; E78.5 Hyperlipidemia, unspecified; K21.9 Gastro-esophageal reflux disease without esophagitis; I48.91 Unspecified atrial fibrillation; E66.01 Morbid (severe) obesity due to excess calories; Z79.84 Long term (current) use of oral hypoglycemic drugs; Z87.891 Personal history of nicotine dependence; Z79.899 Other long term (current) drug therapy
CPT/HCPCS: 88305; 45380; 45385; J0360; J2704; J1920

== ENCOUNTER → 2023-11-13 | Outpatient (CLI) | payer BC ==
[2023-11-13 07:38] LABS: African American GFR (CKD) 72 (>60 ml/min/1.73 sqM); Blood Urea Nitrogen 23 mg/dL (9-20); Non-African American GFR(CKD) 62 (>60 ml/min/1.73 sqM)
--- NOTE | 2023-11-19 19:37 | CT ---
EXAMINATION TYPE: CT abdomen pelvis w con CT DLP: 2502.9 mGycm, Automated exposure control for dose reduction was used. DATE OF EXAM: 11/13/2023 8:31 AM COMPARISON: CTA runoff 07/01/2021. 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 Sagittal and coronal reformats were created on a [employer] workstation. Contrast used:100 mL of Isovue 300 with IV Contrast, (none if empty) Oral contrast used: with Oral Contrast (none if empty) FINDINGS: LOWER CHEST: Lung bases are clear. Mild cardiomegaly with moderate calcifications of the aortic and m itral valves. Trace pericardial fluid. ABDOMEN LIVER: Slightly heterogeneous without evidence of mass. Calcified granuloma in the right lobe. GALLBLADDER AND BILE DUCTS: Unremarkable gallbladder. No biliary ductal dilatation. PANCREAS: Unremarkable. SPLEEN: Similar lobulated appearance of the spleen likely related to splenosis. ADRENAL GLANDS: Stable.. KIDNEYS AND URETERS: Kidneys enhance symmetrically. No evidence of hydronephrosis or visible renal ca lculus. The ureters are unremarkable. PELVIS BLADDER: Unremarkable REPRODUCTIVE: Prostate appears enlarged, transverse measures 4.9 cm. A few parenchymal calcification s. ABDOMEN & PELVIS STOMACH AND BOWEL: Contrast traverses the stomach and small bowel loops without evidence of obstructi on. The appendix appears within normal limits. Distal small bowel and colon are nonopacified, limitin g evaluation. Moderate stool throughout the colon. Scattered diverticula without signs of diverticuli tis. No definite mass is shown by CT. PERITONEUM/RETROPERITONEUM: No evidence of pneumoperitoneum or free fluid. VASCULATURE: Moderate atherosclerotic calcifications are present throughout the abdominal aorta and i ts branches. No evidence of aortic aneurysm. Portal veins are enhancing. LYMPH NODES: No gross evidence for lymphadenopathy. SOFT TISSUE/ABDOMINAL WALL: Small fat filled bilateral inguinal hernias. Soft tissue scarring in the anterior left inguinal region. MUSCULOSKELETAL: Osseous structures appear unchanged without significant osseous pathology. Stable sm all sclerotic focus in the left femoral head. No destructive bone lesion. Mild/moderate degenerative changes of the lumbar spine, greatest at L5-S1 where there is mild to moderate spinal canal and neur al foraminal stenoses. IMPRESSION: No acute findings, or significant interval change. No evidence of mass or metastatic disease.
== END | disposition home or self-care (01) ==
LOC: RADCTMAIN 06:40
PROVIDERS: ATTEND Internal Medicine Gastroenterology
DX: D49.0 Neoplasm of unspecified behavior of digestive system (principal)
CPT/HCPCS: 82565; 84520; 74177; 36415; Q9967

== ENCOUNTER → 2024-03-17 | Outpatient (CLI) | payer BC ==
[2024-03-17 18:20] LABS: HCT 54.5 % (39.6-50.0); HGB 17.8 g/dL (13.0-17.0); MCH 29.8 pg (27.0-32.0); MCHC 32.7 g/dL (32.0-37.0); MCV 91.3 FL (80.0-97.0); Mean Platelet Volume 12.1 FL (9.5-12.2); NRBC Per 100 WBC 0 X 10*3/uL (0.00-0.01); Platelet Count 242 X 10*3/uL (140-440); RBC 5.97 X 10*6/uL (4.40-5.60); RDW 13.7 % (11.5-14.5); WBC 9.02 X 10*3/uL (4.50-10.00)
[2024-03-17 19:27] LABS: Blood Urea Nitrogen 29.5 mg/dL (9.0-27.0); Carbon Dioxide 21.9 mmol/L (21.6-31.8); Chloride 100 mmol/L (96-109); Potassium 4.5 mmol/L (3.5-5.5); Sodium 136 mmol/L (135-145)
== END | disposition home or self-care (01) ==
LOC: LABPAT 14:27
PROVIDERS: ATTEND Internal Medicine
DX: Z01.812 Encounter for preprocedural laboratory examination (principal); I48.11 Longstanding persistent atrial fibrillation; I25.10 Atherosclerotic heart disease of native coronary artery without angina pectoris; R06.02 Shortness of breath
CPT/HCPCS: 36415; 80051; 82565; 84520; 85027

== ENCOUNTER 2024-03-19 13:19 | Day surgery (SDC) | payer BC ==
[2024-03-18 09:43] VITALS: BMI 41.8
[~2024-03-19 13:19] MED LIST changes: +ALPRAZolam 0.25 MG TAB PO PRN; +ALPRAZolam 0.5 MG TAB PO PRN; +HEPARIN SODIUM,PORCINE (1 ML) 2,500 UNIT in SODIUM CHLORIDE 0.9% 250 ML IRRIGATION PRN; +HEPARIN SODIUM,PORCINE 10,000 UNIT in SODIUM CHLORIDE 0.9% 1,000 ML IRRIGATION PRN; -LACTATED RINGERS 1,000 ML IV SCH; -LIDOCAINE 1% (10MG/ML) FOR IV START INTRADERMA PRN; +NITROGLYCERIN SL TABS 0.4 MG TAB SUBLINGUAL PRN
[2024-03-19] MEDS: SODIUM CHLORIDE 0.9% 1,000 ML in EMPTY BAG 1 BAG IV SCH (13:42)
[2024-03-19 13:46] LABS: Glucose,Whole Blood 125 mg/dL (70-110)
[2024-03-19 13:57] VITALS: RESP 18; TEMP 97.8
[2024-03-19] MEDS ORDERED: VERAPAMIL 2.5 MG/ML 2 ML AMP ONE (15:55)
[2024-03-19] MEDS ORDERED: LIDOCAINE 1% INJ 10MG/ML (20 ML MDV) ONE (15:55)
[2024-03-19] MEDS ORDERED: fentaNYL (PF) 50 MCG/ML 2 ML AMP ONE (16:05)
[2024-03-19] MEDS: LIDOCAINE 2% (PF) 20 MG/ML 5 ML VIAL SQ ONE (16:13)
[2024-03-19] MEDS: MIDAZOLAM 2 MG/2 ML VIAL IVP ONE ×2 (16:13→16:20)
[2024-03-19] MEDS: fentaNYL (PF) 50 MCG/1 ML VIAL IVP ONE (16:13)
[2024-03-19] MEDS ORDERED: HEPARIN SODIUM 1,000 UN/ML (10ML VL) ONE (16:17)
[2024-03-19] MEDS: HEPARIN SODIUM 1,000 UN/ML (10ML VL) IVP ONE (16:19)
[2024-03-19] MEDS: IOPAMIDOL-370 100ML BTL INTRATHECA ONE (16:37)
[2024-03-19] MEDS: SODIUM CHLORIDE 0.9% 1,000 ML IV ONE (16:43)
[2024-03-19] MEDS: ACETAMINOPHEN TAB 325 MG TAB PO PRN (17:25)
[2024-03-19 17:33] LABS: Glucose,Whole Blood 116 mg/dL (70-110)
[2024-03-19] MEDS ORDERED: RX INFO: IV CONTRAST WAS GIVEN 1 EACH MISC MISCELLANE PRN (17:40)
[2024-03-19] MEDS ORDERED: FAMOTIDINE 20 MG TAB PO PRN (17:42)
[2024-03-19] MEDS ORDERED: FUROSEMIDE 40 MG TAB PO PRN (17:42)
[2024-03-19] MEDS ORDERED: SODIUM CHLORIDE 0.9% 1,000 ML IV SCH (17:45)
[2024-03-19] MEDS: ASPIRIN 325 MG TAB PO ONE (18:27)
[2024-03-19] MEDS: ATORVASTATIN 80 MG TAB PO ONE (18:28)
[2024-03-19] MEDS ORDERED: INSULIN ASPART (NovoLOG) 100 UNIT/ML VIAL SQ SCH (21:00)
[2024-03-19] MEDS ORDERED: INSULIN DETEMIR (LEVEMIR) 100 UNIT/ML SYR SQ SCH (21:00)
[2024-03-19 21:27] VITALS: BP 150/84; PULSE 81
[2024-03-19] MEDS ORDERED: hydrALAZINE HCL 25 MG TAB PO SCH (22:00)
--- NOTE | 2024-03-20 02:53 | P.CARDCATH ---
Description of Procedure: PROCEDURES PERFORMED: Left heart catheterization, bilateral coronary angiography, ultrasound guided arterial access INDICATION: History of CAD, abnormal stress test CONSENT:I have discussed the risks, benefits and alternative therapies for the above-mentioned procedure and for both sedation/analgesia as well as necessary blood product administration, if indicated, as they pertain to this patient. The patient has indicated understanding and acceptance of the risks and procedures discussed. PROCEDURE: After the risks, benefits and alternatives of the above mentioned procedure explained in detail with the patient, informed consent was obtained. Patient was taken to the catheterization lab and prepped and draped in usual fas hion. Ultrasound guidance was used to assess for arterial access. 1% lidocaine was used to anesthetize the right radial artery. A 6-Omani sheath was placed in the right radial artery using modified Seldinger technique and ultrasound guidance. Left coronary angiography was performed with a 5-Omani JL 3.5 catheter and right coronary angiography was performed with a 6-Omani AL 0.75 guide catheter in various views as the FR5 and AR2 could not reach. A 5-Omani FR5 catheter was inserted into the left ventricle and pressure measurements were obtained. The right radial sheath was removed and a TR band was placed with hemostasis achieved. The patient tolerated the procedure well. Patient was transported back to the post catheterization holding area in stable condition. Conscious Sedation: Patient was monitored under the direct supervision of myself for conscious sedation using Versed and fentanyl for a total duration of 19 minutes HEMODYNAMICS: Ao: 139/71 LV: 141/4, LVEDP 9 SELECTIVE CORONARY ARTERIOGRAPHY: LEFT MAIN: The left main is a large caliber vessel which bifurcates into the LAD and circumflex. There is no significant stenosis. LEFT ANTERIOR DESCENDING CORONARY ARTERY: LAD is a large caliber vessel which wraps around to the apex. There is a patent mid LAD stent with otherwise mild luminal irregularities LEFT CIRCUMFLEX CORONARY ARTERY: Left circumflex is a moderate caliber vessel with 30-40% stenosis. RIGHT CORONARY ARTERY: The right coronary artery is a large caliber vessel which gives off a PDA and PLV branch and is the dominant vessel. There are mild l uminal irregularities FINAL IMPRESSION: 1. CAD as described above with 30-40% circumflex stenosis, patent mid LAD stent and otherwise mild luminal irregularities 2. Normal left sided filling pressures PLAN: 1. Aggressive risk factor modification per most recent ACC/AHA guidelines. 2. Follow-up in the office in 1-2 weeks.
[2024-03-20] MEDS ORDERED: INSULIN ASPART (NovoLOG) 100 UNIT/ML VIAL SQ SCH (07:30)
[2024-03-20] MEDS ORDERED: RIVAROXABAN 20 MG TAB PO SCH (09:00)
[2024-03-20] MEDS ORDERED: METOPROLOL TARTRATE 50 MG TAB PO SCH (09:00)
[2024-03-20] MEDS ORDERED: LOSARTAN 50 MG TAB PO SCH (09:00)
[2024-03-20] MEDS ORDERED: ATORVASTATIN 80 MG TAB PO SCH (09:00)
[2024-03-20] MEDS ORDERED: DAPAGLIFLOZIN PROPANEDIOL 5 MG TABLET PO SCH (09:00)
[2024-03-20] MEDS ORDERED: EZETIMIBE 10 MG TAB PO SCH (09:00)
[2024-03-20] MEDS ORDERED: amLODIPine 10 MG TAB PO SCH (09:00)
== END 2024-03-19 20:55 | disposition home or self-care (01) ==
LOC: CATHCVL 13:19 → 6NMEDSUR 16:35 → CATHCVL 20:55
PROVIDERS: ATTEND Internal Medicine
DX: I25.10 Atherosclerotic heart disease of native coronary artery without angina pectoris (principal); I50.32 Chronic diastolic (congestive) heart failure; I11.0 Hypertensive heart disease with heart failure; E78.5 Hyperlipidemia, unspecified; F17.210 Nicotine dependence, cigarettes, uncomplicated; Z82.49 Family history of ischemic heart disease and other diseases of the circulatory system; I48.0 Paroxysmal atrial fibrillation; Z79.01 Long term (current) use of anticoagulants; Z79.899 Other long term (current) drug therapy; Z95.5 Presence of coronary angioplasty implant and graft
CPT/HCPCS: 93458; 76937; C1769; C1894; C1887; J2250; J1644; Q9967; J2001; J3010

== ENCOUNTER 2024-06-06 11:19 | Day surgery (SDC) | payer BC ==
[~2024-06-06 11:19] MED LIST changes: -ALPRAZolam 0.25 MG TAB PO PRN; -ALPRAZolam 0.5 MG TAB PO PRN; -HEPARIN SODIUM,PORCINE (1 ML) 2,500 UNIT in SODIUM CHLORIDE 0.9% 250 ML IRRIGATION PRN; -HEPARIN SODIUM,PORCINE 10,000 UNIT in SODIUM CHLORIDE 0.9% 1,000 ML IRRIGATION PRN; -NITROGLYCERIN SL TABS 0.4 MG TAB SUBLINGUAL PRN; +SODIUM CHLORIDE 0.9% 1,000 ML IV SCH
[2024-06-06] MEDS: SODIUM CHLORIDE 0.9% 500 ML 500 ML IV ONE (11:45)
[2024-06-06 12:08] LABS: Glucose,Whole Blood 167 mg/dL (70-110)
[2024-06-06 12:41] LABS: African American GFR (CKD) 76 (>60 ml/min/1.73 sqM); Anion Gap 8 mmol/L; Blood Urea Nitrogen 23 mg/dL (9-20); Calcium 10.9 mg/dL (8.4-10.2); Carbon Dioxide 25 mmol/L (22-30); Chloride 107 mmol/L (98-107); Glucose 175 mg/dL (74-99); Non-African American GFR(CKD) 66 (>60 ml/min/1.73 sqM); Potassium 4.2 mmol/L (3.5-5.1); Sodium 140 mmol/L (137-145)
[2024-06-06] MEDS: BENZOCAINE SPRAY 1 CAN TOPICAL ONE (13:00)
[2024-06-06] MEDS ORDERED: PROPOFOL 10 MG/ML 20 ML VIAL IV ONE (13:00)
[2024-06-06 13:27] VITALS: TEMP 98
[2024-06-06 14:20] VITALS: RESP 18
[2024-06-06 14:33] VITALS: BP 120/79; PULSE 72
--- NOTE | 2024-06-07 00:01 | P.TEE ---
Description of Procedure(s): Procedure performed: Transesophageal Echocardiogram with color flow doppler, pulsed wave doppler and continuous wave doppler Moderate conscious sedation: Moderate conscious sedation was supplied by anesthesia, see separate report. Complications: none Indications: Afib PROCEDURE: After the risks, benefits and alternatives of the above mentioned procedure was explained in detail with the patient, informed consent was obtained. Patient was brought to the lab in a fasting state. Patient was given sedation by anesthesia, see separate report. The throat was sprayed with Hurricane to anesthetize the throat. A lubricated Omni probe was then introduced into the esophagus and stomach and multiple views were obtained. 2D echo with color flow doppler, pulsed wave doppler and continuous wave doppler was utilized. Agitated saline bubbles were injected to assess for any intra- atrial shunt. The probe was then removed. There was a thrombus noted and therefore patient did not undergo synchronized cardioversion. Patient tolerated the procedure well. Patient was transferred to the post procedure area in stable and satisfactory condition. FINDINGS: 1. The aortic valve is bicuspid and has mild aortic stenosis with mild aortic regurgitation. Ascending aorta dilated at 4.3 cm 2. The mitral valve appears be normal with mild regurgitation. 3. Tricuspid valve appears to be normal. 4. 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 Left atrial appendage has an Echo density most consistent with thrombus. 6. Left ventricular ejection fraction is 50% 7. Ascending aortic aneurysm measuring 4.3 cm
== END 2024-06-06 14:49 | disposition home or self-care (01) ==
LOC: OR 11:19
PROVIDERS: ATTEND Internal Medicine
DX: I48.0 Paroxysmal atrial fibrillation (principal); I71.21 Aneurysm of the ascending aorta, without rupture; I08.0 Rheumatic disorders of both mitral and aortic valves; I13.0 Hypertensive heart and chronic kidney disease with heart failure and stage 1 through stage 4 chronic kidney disease, or unspecified chronic kidney disease; I50.32 Chronic diastolic (congestive) heart failure; E11.22 Type 2 diabetes mellitus with diabetic chronic kidney disease; N18.9 Chronic kidney disease, unspecified; E11.69 Type 2 diabetes mellitus with other specified complication; E78.2 Mixed hyperlipidemia; I25.5 Ischemic cardiomyopathy; E11.51 Type 2 diabetes mellitus with diabetic peripheral angiopathy without gangrene; I25.10 Atherosclerotic heart disease of native coronary artery without angina pectoris; K21.9 Gastro-esophageal reflux disease without esophagitis; E66.9 Obesity, unspecified; Z68.41 Body mass index [BMI] 40.0-44.9, adult; Z95.5 Presence of coronary angioplasty implant and graft; Z86.718 Personal history of other venous thrombosis and embolism; Z82.49 Family history of ischemic heart disease and other diseases of the circulatory system; Z87.891 Personal history of nicotine dependence; Z79.4 Long term (current) use of insulin; Z79.899 Other long term (current) drug therapy; Z79.01 Long term (current) use of anticoagulants; Z79.84 Long term (current) use of oral hypoglycemic drugs
CPT/HCPCS: 93312; 93320; 93325; 80048; J2704

== ENCOUNTER 2024-07-25 06:32 | Day surgery (SDC) | payer BC ==
[2024-07-25] MEDS: IV FLUID CONTINUATION 1,000 ML IV ONE (05:44)
[2024-07-25] MEDS: SODIUM CHLORIDE 0.9% 500 ML DEHP FREE BAG IV STA (05:47)
[~2024-07-25 06:32] MED LIST changes: -SODIUM CHLORIDE 0.9% 1,000 ML IV SCH; +SODIUM CHLORIDE 0.9% 500 ML BAG IV STA
[2024-07-25 07:14] VITALS: RESP 16
[2024-07-25] MEDS ORDERED: PROPOFOL 10 MG/ML 20 ML VIAL IV ONE (07:28)
[2024-07-25] MEDS ORDERED: MIDAZOLAM 2 MG/2 ML VIAL ONE (07:28)
[2024-07-25] MEDS ORDERED: LIDOCAINE 1% INJ 10MG/ML (20 ML MDV) ONE (07:28)
[2024-07-25] MEDS: BENZOCAINE SPRAY 1 CAN TOPICAL ONE (07:30)
[2024-07-25 07:34] LABS: Glucose,Whole Blood 140 mg/dL (70-110)
[2024-07-25 07:40] LABS: African American GFR (CKD) 65 (>60 ml/min/1.73 sqM); Anion Gap 7 mmol/L; Blood Urea Nitrogen 21 mg/dL (9-20); Calcium 11.2 mg/dL (8.4-10.2); Carbon Dioxide 26 mmol/L (22-30); Chloride 105 mmol/L (98-107); Glucose 155 mg/dL (74-99); Non-African American GFR(CKD) 56 (>60 ml/min/1.73 sqM); Potassium 4.4 mmol/L (3.5-5.1); Sodium 138 mmol/L (137-145)
[2024-07-25 07:57] VITALS: TEMP 98
[2024-07-25 08:43] VITALS: BP 127/85; PULSE 64
--- NOTE | 2024-07-25 17:12 | P.TEE ---
Description of Procedure(s): Procedure performed: Transesophageal Echocardiogram with color flow doppler, pulsed wave doppler and continuous wave doppler, synchronized cardioversion Moderate conscious sedation: Moderate conscious sedation was supplied by anesthesia, see separate report. Complications: none Indications: atrial fibrillation, prior history of thrombosis PROCEDURE: After the risks, benefits and alternatives of the above mentioned procedure was explained in detail with the patient, informed consent was obtained. Patient was brought to the lab in a fasting state. Patient was given sedation by anesthesia, see separate report. The throat was sprayed with Hurricane to anesthetize the throat. A lubricated Omni probe was then introduced into the esophagus and stomach and multiple views were obtained. 2D echo with color flow doppler, pulsed wave doppler and continuous wave doppler was utilized. The probe was then removed. There was no thrombus noted and therefore patient underwent synchronized cardioversion x 1 with 200J with resultant sinus rhythm. Patient tolerated the procedure well. Patient was transferred to the post procedure area in stable and satisfactory condition. FINDINGS: 1. The aortic valve is bicuspid with mild to moderate aortic stenosis 2. The mitral valve appears be normal with mild regurgitation. 3. Tricuspid valve appears to be normal. 4. The interatrial septum is intact. 5. Left atrial appendage is free of clot. There is artifact noted which travels into the wall not consistent with a thrombus. 6. Left ventricular ejection fraction 50% with global mild hypokinesis
== END 2024-07-25 09:04 | disposition home or self-care (01) ==
LOC: OR 06:32
PROVIDERS: ATTEND Internal Medicine
DX: I48.91 Unspecified atrial fibrillation (principal); I35.0 Nonrheumatic aortic (valve) stenosis; E78.5 Hyperlipidemia, unspecified; I25.10 Atherosclerotic heart disease of native coronary artery without angina pectoris; E11.9 Type 2 diabetes mellitus without complications; I11.9 Hypertensive heart disease without heart failure; I11.0 Hypertensive heart disease with heart failure; I50.22 Chronic systolic (congestive) heart failure; I82.409 Acute embolism and thrombosis of unspecified deep veins of unspecified lower extremity; I73.9 Peripheral vascular disease, unspecified; F32.A Depression, unspecified; K21.9 Gastro-esophageal reflux disease without esophagitis; Z79.810 Long term (current) use of selective estrogen receptor modulators (SERMs); Z87.891 Personal history of nicotine dependence; Z79.899 Other long term (current) drug therapy; Z79.4 Long term (current) use of insulin; Z79.01 Long term (current) use of anticoagulants
CPT/HCPCS: 80048; 92960; 93312; 93320; 93325